=== PATIENT | female | born 1960 | race Caucasian/White ===

== ENCOUNTER 2016-04-14 08:55 | Day surgery (SDC) | payer OTHER ==
[~2016-04-14 08:55] MED LIST: ALBUTEROL2.5 MG/3 M IN; ALDACTONE25 MG PO; DUONEB IN; FUROSEMIDE20 MG PO; JARDIANCE10 MG PO; KRISTALOSE10 GM PO; LEVEMIR FL100 UNIT/M SC; LEVOTHYROXINE112 MCG PO; LISINOPRIL10 MG PO; LOVASTATIN40 MG PO; NEBULIZER; NOVOLOG PE100 UNITS/ SC; O2; OXYCODONE HCL5 MG PO; PREDNISONE20 MG PO; REBETOL200 MG PO; ROXICODONE5 MG PO; SEROQUEL100 MG PO; SOVALDI PO; TANZEUM SC; XIFAXAN550 MG PO
--- NOTE | 2016-04-14 11:12 | Provider's Discharge Care Plan ---
Problem, Goal, Plan Problem List 1. Chest pain 2. Bipolar 1 disorder 3. Hypertension 4. Diabetes mellitus 5. Cirrhosis 6. Obesity 7. Hypothyroidism 8. Hepatitis C 9. Hyperkalemia 10. Hypomagnesemia 11. Anemia 12. Thrombocytopenia 13. Intractable nausea and vomiting 14. Intractable abdominal pain 15. Cholelithiasis 16. Acute abdominal pain 17. Pneumonia 18. Pancytopenia 19. Hypoxia 20. COPD (chronic obstructive pulmonary disease) 21. Diabetes mellitus type 2, uncontrolled, without complications
--- NOTE | 2016-04-14 11:44 | OPERATIVE REPORT ---
DATE OF SURGERY: 04/14/2016 SURGEON: Casey Jerez MD PREOPERATIVE DIAGNOSES: 1. Epigastric pain 2. Recurrent vomiting POSTOPERATIVE DIAGNOSIS: 1. Prepyloric gastric ulcer PROCEDURE PERFORMED: 1. Esophagogastroduodenoscopy with biopsies ANESTHESIA: Total IV general. INDICATIONS: The patient is a 55-year-old woman with recurrent bouts of nausea, vomiting, and abdominal pain. She is currently on omeprazole 40 mg every day. The patient also had previous esophageal varices, but has now had a TIPS procedure as well as curative treatment of chronic hepatitis C. SURGICAL TECHNIQUE: The patient was taken to the endoscopy suite where total IV general was administered and the patient was placed in the left lateral decubitus position. A well-lubricated endoscope was inserted down the esophagus and stomach under direct vision. There were no mechanical obstructions to passing of the endoscope. There was some bile laking in the stomach. This was suctioned away. As the pylorus was approached, there was a single ulcer in the distal antrum, close to the pyloric channel, about 6 mm in diameter. This did not have any raised edges or suspicion of neoplasm. There were also a few shallow red spots around the lower antrum, suggesting similar lesions. The pylorus was entered, and the duodenum appeared to be normal without, evidence of obstruction or stenosis. On withdrawal, a single biopsy was taken from the antrum for Helicobacter testing. A retroflexed view was unremarkable. There were no varices seen in the stomach or in the esophagus. The gastroesophageal junction was viewed and did not appear to be pathologic. The rest of the esophagus was once again normal. In summary, this patient had an antral ulcer, and we will await helicobacter testing to decide on additional treatment. She will stay on her proton pump inhibitors and avoid barrier breakers if possible. This patient's symptoms may also be secondary to diabetic gastropathy; however, the patient's current BMI has not been impacted by alimentation problems.
== END 2016-04-14 13:05 | disposition home or self-care (01) ==
LOC: OR SRH 08:55 → SCU SRH 09:00
PROVIDERS: Surgery
PROC: 0DB68ZX Excision of Stomach, Via Natural or Artificial Opening Endoscopic, Diagnostic (ICD-10-PCS; principal; 2016-04-14 10:45)
DX: K25.9 Gastric ulcer, unspecified as acute or chronic, without hemorrhage or perforation (principal); I10 Essential (primary) hypertension; E11.9 Type 2 diabetes mellitus without complications; Z79.4 Long term (current) use of insulin; Z86.19 Personal history of other infectious and parasitic diseases; J44.9 Chronic obstructive pulmonary disease, unspecified
CPT/HCPCS: 29229; 29240; 50004; 60001; 82943; 83526; 90047; 90074; 90705; 95059

== ENCOUNTER 2016-04-26 17:15 | Observation (INO) | payer OTHER ==
[~2016-04-26] VITALS: Ht 165.1 cm; Wt 155.8 kg
--- NOTE | 2016-04-26 19:29 | ED CLINICAL REPORT ---
Clinical Report - Physicians/Mid Levels [facility] [address] [place] [address] 04/26/2016 17:15 [id number] Time Seen: 17:47. Arrived- By private vehicle. Historian- patient. HISTORY OF PRESENT ILLNESS Chief Complaint: VOMITING and NAUSEA. At its maximum, severity described as moderate. When seen in the E.D., severity described as moderate. Modifying factors- worsened by movement and food. Relieved by rest. This started today and is still present. It was gradual in onset and has been waxing/waning. Quality not described as "pain". No radiation. The patient has had nausea and vomiting. No diarrhea. Similar symptoms previously: Frequently (patient states has same symptoms "every other month"). Recent medical care: The patient was seen recently by a health care provider. REVIEW OF SYSTEMS No black stools, difficulty with urination, pain with urination, urinary frequency or bloody stools. No fever, headache, sore throat or difficulty breathing. Denies current . The patient has had a cough, joint pain, and back pain. All systems otherwise negative, except as recorded above. PAST HISTORY PCP: Dr Blackwell Problems: Gout. Chest Pain. Hyperglycemia. UTI - Urinary Tract Infection. Renal Insufficiency. Lower Extremity Pain. Arthritis. Back Pain. Chronic Back Pain. Intervertebral Disc Disease. Lumbar Radiculopathy. Degenerative Joint Disease. Pedal Edema. Rt groin pain . Gastritis. Dehydration. Cholelithiasis. Hypomagnesemia. Abdominal Pain. Flank Pain. Cardiovascular Risk Factors. Cirrhosis. Lumbar Strain. Kidney failure. GI Bleeding. Abnormal Test. Rectal Bleed. Hepatitis C. Hypertension. Otitis Media. Obesity. Hepatitis. Bipolar Disorder. Thyroid Disease. Chest Wall Pain. Pharyngitis. Hypothyroidism. Neck Pain. Cervical Strain. Pneumonia. Diabetes Mellitus. Surgeries: Appendectomy. . Endoscopy. Hysterectomy. Liver biopsy. Shoulder Surgery. TIPs in liver. Tonsillectomy. Tympanostomy Tubes. Medications: Jardiance Oral (Tablet 10 mg) 2 tablets, day. Levemir Subcutaneous 150 Units in AM+ 150 units in PM. Levothyroxine Sodium Oral 137 mcg, daily. Lisinopril Oral 5 mg, daily. Lovastatin Oral (Tablet 40 mg) 1 tablet, at bedtime. NovoLOG Subcutaneous per Sliding Scale, before meals. Phenergan (Promethazine) Oral, as needed. Phenergan (Promethazine) Rectal, as needed. QUEtiapine Fumarate Oral 200 mg, daily. Tanzeum Subcutaneous (Pen-injector 30 mg), once a week. Xifaxan Oral (Tablet 550 mg) 1 tablet, 2xdaily. Zofran Oral 4 mg, PRN. Allergies: Adhesive. (blister) Aspirin. (stomach pain and nausea) Latex. (blister) Vicodin.(vomiting). SOCIAL HISTORY Never smoker. No alcohol use or drug use. Residence: [place]. ADDITIONAL NOTES The nursing notes have been reviewed. PHYSICAL EXAM Vital Signs: 04/26/2016 17:29 BP: 151/71. HR: 60. RR: 25. O2 saturation: 94%. Pain level now: 0/10. Appearance: Alert. Oriented X3. Patient in moderate distress. Eyes: Eyes normal inspection. No scleral icterus or pale conjunctivae. ENT: Dry mucous membranes present. Pharynx normal. No pharyngeal erythema or tonsillar exudate. Neck: Normal inspection. Neck supple. CVS: Heart sounds normal. Pulses normal. Respiratory: No respiratory distress. Breath sounds normal. Abdomen: Soft. Severely obese. No rebound tenderness or guarding. (body habitus limits exam). Back: Normal inspection. Skin: Skin warm and dry. Extremities: Extremities exhibit normal ROM. No calf tenderness. Neuro: Oriented X 3. No motor deficit. No sensory deficit. LABS, X-RAYS, AND EKG Laboratory Tests: CBC w Diff: (MANISHA: 04/26/2016 18:05) ( MsgRcvd 04/26/2016 18:21) Final results Test Result Flag Units (Reference) WHITE BLOOD COUNT 5.9 K/uL (4.5-11.5) RED BLOOD COUNT 4.59 M/uL (4.00-5.20) HEMOGLOBIN 13.0 gm/dL (12.0-16.0) HEMATOCRIT 39.7 % (36.0-46.0) MEAN CELL VOLUME 86 fL (80-100) MEAN CORPUSCULAR HGB 28 pg (26-34) MEAN CORPUSCULAR HGB CONC 33 g/dL (31-37) RED CELL DISTRIBUTION WIDTH 15.2 H % (11.6-14.8) PLATELET COUNT 85 L K/uL (150-400) NEUTROPHIL % 82.1 H % (50-75) LYMPH % 13.5 L % (25-40) MONO % 3.6 % (3-14) EOSINOPHIL % 0.6 % (0-4) BASOPHIL % 0.2 % (0-2) PT with INR: (MANISHA: 04/26/2016 18:05) ( [facility] 04/26/2016 18:27) Final results Test Result Flag Units (Reference) INR 1.1 (0.8-1.2) Low Intensity Therapy: INR 1.5-2.0 PT range 18.5-23.1Mod.Intensity Therapy: INR 2.0-3.0 PT range 23.1-31.5High Intensity Therapy: INR 2.5-3.5 PT range 27.4-35.5High Intensity Therapy 2: INR 3.0-4.0 PT range 31.5-39.3 Ammonia Level: (MANISHA: 04/26/2016 18:05) ( [facility] 04/26/2016 18:32) Final results Test Result Flag Units (Reference) AMMONIA 15 umol/L (11-32) Lactate, Serum: (MANISHA: 04/26/2016 18:05) ( [facility] 04/26/2016 18:42) Final results Test Result Flag Units (Reference) LACTIC ACID 2.4 H mmol/L (0.4-2.0) CMP: (MANISHA: 04/26/2016 18:05) ( [facility] 04/26/2016 18:34) Final results Test Result Flag Units (Reference) GLUCOSE 271 H mg/dL (70-110) BUN 17 mg/dL (7-18) CREATININE 1.2 mg/dL (0.6-1.3) Estimated GFR 49.57 mL/min Estimated GFR- >60 mL/min Note: Persistent reduction over 3 months in eGFR<60 mL/min/1.73 m2 defines CKD. Patients with eGFR values>=60 mL/min/1.73 m2 may also have CKD if evidence ofpersistent proteinuria. Additional information may be foundat www.kidney.org. SODIUM 141 mmol/L (136-145) POTASSIUM 4.6 mmol/L (3.5-5.1) CHLORIDE 103 mmol/L (98-107) CARBON DIOXIDE 23 mmol/L (21-32) CALCIUM 10.0 mg/dL (8.5-10.1) TOTAL PROTEIN 7.2 g/dL (6.4-8.2) ALBUMIN 3.9 g/dL (3.3-5.0) BILIRUBIN, TOTAL 0.9 mg/dL (0.0-1.0) ALKALINE PHOSPHATASE 140 H U/L (46-116) AST (SGOT) 31 U/L (15-37) ALT (SGPT) 28 U/L (12-78) LIPASE 85 U/L (73-393) AMYLASE 27 U/L (25-115) ETHYL ALCOHOL <3 L mg/dL (3-10) . Pulse Oximetry: 04/26/2016 17:29 O2 saturation: 94%. (FIO2 - room air). Interpretation: hypoxemia. PROGRESS AND PROCEDURES Course of Care: Normal Saline 1 liter IVPB given. Zofran 4 mg IVP given. Reglan 10 mg IVP given. Pt with intractable nausea and vomiting - suspect diabetic gastroparesis. She requires obs for IV fluids and antiemetics 04/26/2016 19:23 BP: 153/58. HR: 70. RR: 100. O2 saturation: 100%. Temp: 98.5 F. Patient/family counseled. Old ED records reviewed. Patient has had multiple ED visits (12 visits to [facility] ED in past 12 months). Transition orders written. Disposition: Observation in Acute Care. CLINICAL IMPRESSION Intractable vomiting with nausea. Chronic, moderately well controlled type 2 diabetes with hyperglycemia. No coma. Abnormal liver function test: alkaline phosphatase (with history of liver cirrhosis). 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 INSTRUCTIONS Avoid alcohol and NSAIDS. Examples of NSAIDS include aspirin, ibuprofen (Advil) and naproxen (Aleve). Avoid fatty, fried/greasy, lactose-containing (such as milk, cheese and ice cream), salty and spicy foods. Your Current Medications: CONTINUE TAKING THE FOLLOWING MEDICATIONS: Jardiance Oral : Tablet 10 mg, 2 tablets day. Levemir Subcutaneous : 150 Units in AM+ 150 units in PM. Levothyroxine Sodium Oral : 137 mcg daily. Lisinopril Oral : 5 mg daily. Lovastatin Oral : Tablet 40 mg, 1 tablet at bedtime. NovoLOG Subcutaneous : per Sliding Scale before meals. Phenergan (Promethazine) Oral : prn. Phenergan (Promethazine) Rectal : prn. QUEtiapine Fumarate Oral : 200 mg daily. Tanzeum Subcutaneous : Pen-injector 30 mg, once a week. Xifaxan Oral : Tablet 550 mg, 1 tablet 2xdaily. Zofran Oral : 4 mg PRN. (Electronically signed by Casey Morrell DO 04/26/2016 21:31)
--- NOTE | 2016-04-26 19:29 | ED NURSING NOTES ---
Clinical Report - Nurses [facility] [address] [place] [address] 04/26/2016 17:15 Patient: VANIA AGUILA TRIAGE Triage time 1728 PM. Acuity: LEVEL 4. Chief Complaint: ABDOMINAL PAIN, NAUSEA, VOMITING and DIARRHEA. Alert. No acute distress. RICHI COMA SCORE: [place] Coma Scale: 15- eyes open spontaneously (4); best verbal response- oriented x 4 (5); best motor response- obeys commands (6). --17:41 Cristal Coley R.N. 17:28 04/26/16. BP: 155/75 (regular adult cuff) taken on the left arm, via an automated monitor, while sitting. HR: 61 (regular). RR: 15. O2 saturation: 89% on room air. Temp: 97.4 F (oral). Pain level now: 0/10. --17:41 Cristal Coley R.N. Weight: 149.6 kg stated. Height/Length: 63 inches Per Patient. BMI: 58.4. --17:30 Cristal Coley R.N. Medications Jardiance Oral (Tablet 10 mg) 2 tablets, day. Levemir Subcutaneous 150 Units in AM+ 150 units in PM. Levothyroxine Sodium Oral 137 mcg, daily. Lisinopril Oral 5 mg, daily. Lovastatin Oral (Tablet 40 mg) 1 tablet, at bedtime. NovoLOG Subcutaneous per Sliding Scale, before meals. Phenergan (Promethazine) Oral, as needed. Phenergan (Promethazine) Rectal, as needed. QUEtiapine Fumarate Oral 200 mg, daily. Tanzeum Subcutaneous (Pen-injector 30 mg), once a week. Xifaxan Oral (Tablet 550 mg) 1 tablet, 2xdaily. Zofran Oral 4 mg, PRN. --17:31 Cristal Coley R.N. Allergies Adhesive. (blister) Aspirin. (stomach pain and nausea) Latex. (blister) Vicodin.(vomiting) --17:31 Cristal Coley R.N. Medication/allergy information source: the patient. --17:41 Cristal Coley R.N. History Arrived by private vehicle. Historian: patient. ( Pt states since this morning has been vomiting, chills, feels very weak and exhausted. Has taken zofran as prescribed with no relief. Pt does admit to having cough, productive green. Here for further evaluation.). This started last night. She has had nausea, vomiting, diarrhea and abdominal pain. She has had fever (1 weeks). Last oral intake by patient was liquid this morning (20 minutes). Treatment [employer]PER[employer]: (zofran). PAST MEDICAL HX: Immunizations: up-to-date. SOCIAL HX: Never smoker. No alcohol use or drug use. No recent travel. No infectious disease exposure. No known contact with a sick individual. SELF HARM ASSESSMENT: A self harm assessment was performed. The patient answered "no" to the question "Do you have thoughts of harming or killing yourself?" and "Have you recently had thoughts about harming or killing others?". FALL RISK ASSESSMENT: Fall risk assessment completed. No fall risk identified. NUTRITIONAL RISK ASSESSMENT: The nutritional risk assessment revealed no deficiencies. --17:41 Cristal Coley R.N. PROBLEMS: Lifestyle / Substance Problems. Gout. Chest Pain. Hyperglycemia. UTI - Urinary Tract Infection. Renal Insufficiency. Lower Extremity Pain. Arthritis. Back Pain. Chronic Back Pain. Intervertebral Disc Disease. Lumbar Radiculopathy. Degenerative Joint Disease. Pedal Edema. Rt groin pain . COPD - Chronic Obstructive Pulmonary Disease. Gastritis. Dehydration. Contusion. Fall. Sprain. Biliary Colic. Cholelithiasis. Vomiting. Hypomagnesemia. Abdominal Pain. Flank Pain. Cardiovascular Risk Factors. Cirrhosis. Lumbar Strain. Kidney failure. GI Bleeding. Abnormal Test. Rectal Bleed. LNMP - Last Normal Menstrual Period. Hepatitis C. Hypertension. Otitis Media. Obesity. Hepatitis. Bipolar Disorder. Thyroid Disease. Chest Wall Pain. Pharyngitis. Hypothyroidism. Neck Pain. Cervical Strain. Immunizations. Pneumonia. Diabetes Mellitus. --17:32 Cristal Coley R.N. ADDITIONAL SURGERIES: Appendectomy. . Endoscopy. Hysterectomy. Liver biopsy. Shoulder Surgery. TIPs in liver. Tonsillectomy. Tympanostomy Tubes. --17:32 Cristal Coley R.N. Interventions ID band on patient. --17:41 Cristal Coley R.N. PHYSICAL ASSESSMENT To room via wheelchair. GENERAL / NEURO / PSYCH: Alert. Appears in no acute distress. RESPIRATORY: Decreased breath sounds in the bases bilaterally. Breath sounds within normal limits. CVS: Capillary refill less than 2 seconds. GI / : Abdomen soft. SKIN: Skin is pale. Skin is warm and dry. --17:41 Cristal Coley R.N. NURSING PROGRESS NOTES The initial plan of care for this patient has been created This plan of care was discussed with the patient. Oxygen administered by nasal cannula at 2 liters. Pulse oximeter and NIBP monitor placed on patient. Patient gowned. Reassurance given. Call light placed in reach. Side rails up. Bed placed in lowest position. Brakes of bed on. --17:43 Cristal Coley R.N. 17:29 04/26/16. BP: 151/71 (regular adult cuff) taken on the left arm, via an automated monitor, while sitting. HR: 60. RR: 25. O2 saturation: 94% on nasal cannula at 2 liters/minute. Pain level now: 0/10. --17:43 Cristal Coley R.N. 18:10 04/26/2016 Started bag #1 1000 mL IV Fluids IV NS (Saline); at 1000 mL/hr over 1 hour(s) via site #1 --18:15 Cristal Coley R.N. 18:11 04/26/2016 Reglan (Metoclopramide HCl) IVP 10 mg given over 1 minute(s) via site #1. Allergies verified and confirmed 5 rights. IV patency established. IV site checked: no pain, redness, or swelling. IV flushed thoroughly pre- and post-medication administration. IVP given by RN. --18:16 Cristla Coley R.N. 18:15 04/26/2016 Site #1 started via IV in the left antecubital space with an 20g angiocath; one attempt. Blood drawn: rainbow set. Labeled in the presence of the patient and sent to the lab. --18:15 Cristal Coley R.N. 18:16 04/26/2016 Zofran (Ondansetron HCl) IVP 4 mg given over 2 minute(s) via site #1. Allergies verified and confirmed 5 rights. IV patency established. IV site checked: no pain, redness, or swelling. IV flushed thoroughly pre- and post-medication administration. --18:16 Cristal Coley R.N. Pulse oximeter and NIBP monitor placed on patient. Reassurance given. ( Pt vomited approximately 400cc of green like fluid, IV infusing). GI / : The patient reports nausea. The patient reports vomiting. Call light placed in reach. Side rails up x 1. Bed placed in lowest position. Brakes of bed on. --18:52 Cristal Coley R.N. 18:45 04/26/16. BP: 151/51. HR: 68. RR: 15. O2 saturation: 94% on room air. Pain level now: 0/10. --18:52 Cristal Coley R.N. 18:57 04/26/2016 Zofran IVP Response: symptoms are the same. The patient feels the same. --19:07 Cristal Coley R.N. 19:07 04/26/2016 Reglan IVP Response: no adverse reaction symptoms are the same. The patient feels the same. --19:07 Cristal Coley R.N. 19:22 04/26/2016 Zofran (Ondansetron HCl) IVP 4 mg given over 2 minute(s) via site #1. Allergies verified and confirmed 5 rights. IV patency established. IV site checked: no pain, redness, or swelling. IV flushed thoroughly pre- and post-medication administration. IVP given by RN. --19:22 Gaetano Zavala R.N. 19:23 04/26/2016 PHENERGAN (Promethazine HCl) IVP 12.5 mg given over 5 minute(s) via site #1. Allergies verified and confirmed 5 rights. IV patency established. IV site checked: no pain, redness, or swelling. IV flushed thoroughly pre- and post-medication administration. IVP given by RN. --19:23 Gaetano Zavala R.N. Reassurance given. The patient is calm and resting quietly. Overall patient status is improved- she states feels better. --19:24 Gaetano Zavala R.N. 19:23 04/26/16. BP: 153/58 taken on the right arm, via an automated monitor, while lying. HR: 70 (regular and normal rate). RR: 100. O2 saturation: 100%. Temp: 98.5 F (oral). --19:24 Gaetano Zavala R.N. ( Patient vomited again. States that she feels like she vomits every time she gets the Zofran. Patient states that she feels better after she vomits.). --19:32 Gaetano Zavala R.N. Inpatient H&P given to patient for completion. --19:45 Anel Mas ER Tech1 19:55 04/26/2016 Zofran IVP Response: no adverse reaction symptoms are the same. The patient feels worse. --20:10 Cristal Coley R.N. 20:00 04/26/2016 PHENERGAN IVP Response: symptoms are the same. The patient feels the same. --20:10 Cristal Coley R.N. 20:10 04/26/2016 PHENERGAN (Promethazine HCl) IVP 12.5 mg given over 1 minute(s) via site #1. Allergies verified and confirmed 5 rights. IV patency established. IV site checked: no pain, redness, or swelling. IV flushed thoroughly pre- and post-medication administration. IVP given by RN. --20:10 Cristal Coley R.N. 20:11 04/26/2016 IV Fluids IV NS Bag Change: bag #1 completed. Total amount infused: 1000. STARTED bag #2 (500 mL) at 500 mL/hr via IV pump. Confirmed 5 rights. IV patency established. IV site checked: no pain, redness, or swelling. IV flushed thoroughly. --20:11 Cristal Coley R.N. 20:12 04/26/16. BP: 158/72. HR: 65. RR: 18. O2 saturation: 94% on room air. Pain level now: 0/10. --20:18 Cristal Coley R.N. Pulse oximeter and NIBP monitor placed on patient. Reassurance given. The patient has had no adverse reaction. Overall patient status is improved- she states feels the same. ( Pt vomited x2 approximately 150cc clear. More medicine given as ordered, pt states with no relief "zofran is making me vomit" phenergan given as ordered. Emotional support provided. Pt offered cold compress and O2 to help with n/v, refused.). GI / : The patient reports nausea. The patient reports vomiting. Denies abdominal pain or diarrhea. SKIN: Skin is pale. Two patient identifiers checked. Call light placed in reach. Bed placed in lowest position. Brakes of bed on. --20:18 Cristal Coley R.N. 20:57 04/26/2016 PHENERGAN IVP Response: no adverse reaction symptoms are the same. The patient feels the same. --21:12 Cristal Coley R.N. 20:58 04/26/2016 IV Fluids IV NS Continued: at the rate of 500 mL/hr. 600 mL remaining bag #2. IV patency established. IV site checked: no pain, redness, or swelling. IV flushed thoroughly. --21:13 Cristal Coley R.N. DISPOSITION / DISCHARGE 21:00 04/26/2016 Site #1 reassessed; patent and infusing well. Good blood return present. --21:00 Cristal Coley R.N. Departure time: 2105 PM. Condition at departure: unchanged and stable. Transported via stretcher by transport team. Report was given to a nurse via a phone call. Report included patient's care, treatment, medications, reviewed medication reconcilliation, and condition (including any recent changes or anticipated changes). All questions were answered. Report was acknowledged and care was transferred. Bed obtained and ready. ( Pt transfered via stretcher safely to room 210B. VSS, left IV site intact and infusing NS as ordered. Pt believes no relief, volume of vomit has decreased.). FALL RISK ASSESSMENT: Fall risk assessment completed. No fall risk identified. --21:12 Cristal Coley R.N. 21:00 04/26/16. BP: 142/65 (regular adult cuff) taken on the right arm, via an automated monitor, while lying. HR: 78. RR: 16. O2 saturation: 93% on room air. Temp: 98.2 F (oral). Pain level now: 0/10. --21:12 Cristal Coley R.N. Locked/Released at 04/27/2016 1:10 by Cristal Coley R.N.
--- NOTE | 2016-04-26 19:29 | ED ORDER SUMMARY ---
..... Patient: VANIA AGUILA OrderSheet [facility] VisitID: [id number] [place] [address] 55y, F Registration Date/Time: 04/26/2016 ORDER SHEET Weight: 149.6 kg (stated) Allergies: Adhesive, Aspirin, Latex, Vicodin GENERAL ORDERS: CBC w Diff Urgent (17:49 04/26/2016 PHutchinson DO) (Ack 17:58 LTapper) (18:03 EHassan R.N.) CMP Urgent (17:49 04/26/2016 PHutchinson DO) (Ack 17:58 LTapper) (18:03 EHassan R.N.) UA-Culture if indicated Urgent (17:49 04/26/2016 PHutchinson DO) (Ack 17:58 LTapper) (18:03 EHassan R.N.) Amylase Urgent (17:49 04/26/2016 PHutchinson DO) (Ack 17:58 LTapper) (18:03 EHassan R.N.) Lipase Urgent (17:49 04/26/2016 PHutchinson DO) (Ack 17:58 LTapper) (18:03 EHassan R.N.) PT with INR Urgent (17:49 04/26/2016 PHson ) (Ack 17:58 LTapper) (18:03 EHassan R.N.) Ammonia Level Urgent (17:49 04/26/2016 PHutchinson DO) (Ack 17:58 LTapper) (18:15 EHassan R.N.) Urine Drug Screen Urgent (17:49 04/26/2016 PHutchinson DO) (Ack 17:58 LTapper) (18:15 EHassan R.N.) Ethyl Alcohol Urgent (17:49 04/26/2016 PHutchinson DO) (Ack 17:58 LTapper) (18:15 EHassan R.N.) Lactate, Serum Urgent (17:49 04/26/2016 PHutchinson DO) (Ack 17:58 LTapper) (18:15 EHassan R.N.) NPO (17:49 04/26/2016 [facility]) (18:03 EHassan R.N.) Call (Place call to): (Dr Parish) (19:29 04/26/2016 [facility]) (19:41 AMcQuoid ER Tech1) MEDICATION ORDERS: Phenergan IV 12.5 mg (HIGH ALERT MEDICATION, NOW) (19:09 04/26/2016 [facility]) (19:23 Nelda R.N.) Phenergan IV 12.5 mg (HIGH ALERT MEDICATION, NOW) (20:03 04/26/2016 [facility]) (20:10 ESTHELAassan R.N.) IV FLUIDS: IV NS : initial bolus 1000 mL (1000 mL/hr), then 500 mL/hr for X2 (NOW) (17:48 04/26/2016 [facility]) (18:15 EHassan R.N.) Reglan IV 10 mg (NOW) (17:48 04/26/2016 [facility]) (18:16 EHassan R.N.) Zofran IV 4 mg (NOW) (17:49 04/26/2016 [facility]) (18:16 EHassan R.N.) Zofran IV 4 mg (NOW) (19:09 04/26/2016 [facility]) (19:22 Nelda R.N.) ORDER SHEET NOTES: [Electronically signed by Casey Morrell DO (21:31 04/26/2016)] [Electronically signed by Cristal Coley R.N. (01:10 04/27/2016)] [Electronically locked/signed by Cristal Coley R.N. (01:10 04/27/2016)]
--- NOTE | 2016-04-26 19:29 | ED ORDER SUMMARY ---
..... Patient: VANIA AGUILA OrderSheet [facility] VisitID: [id number] [place] [address] 55y, F Registration Date/Time: 04/26/2016 ORDER SHEET Weight: 149.6 kg (stated) Allergies: Adhesive, Aspirin, Latex, Vicodin GENERAL ORDERS: CBC w Diff Urgent (17:49 04/26/2016 PHutchinson DO) (Ack 17:58 LTapper) (18:03 EHassan R.N.) CMP Urgent (17:49 04/26/2016 PHutchinson DO) (Ack 17:58 LTapper) (18:03 EHassan R.N.) UA-Culture if indicated Urgent (17:49 04/26/2016 PHutchinson DO) (Ack 17:58 LTapper) (18:03 EHassan R.N.) Amylase Urgent (17:49 04/26/2016 PHutchinson DO) (Ack 17:58 LTapper) (18:03 EHassan R.N.) Lipase Urgent (17:49 04/26/2016 PHutchinson DO) (Ack 17:58 LTapper) (18:03 EHassan R.N.) PT with INR Urgent (17:49 04/26/2016 PHson ) (Ack 17:58 LTapper) (18:03 EHassan R.N.) Ammonia Level Urgent (17:49 04/26/2016 PHutchinson DO) (Ack 17:58 LTapper) (18:15 EHassan R.N.) Urine Drug Screen Urgent (17:49 04/26/2016 PHutchinson DO) (Ack 17:58 LTapper) (18:15 EHassan R.N.) Ethyl Alcohol Urgent (17:49 04/26/2016 PHutchinson DO) (Ack 17:58 LTapper) (18:15 EHassan R.N.) Lactate, Serum Urgent (17:49 04/26/2016 PHutchinson DO) (Ack 17:58 LTapper) (18:15 EHassan R.N.) NPO (17:49 04/26/2016 [facility]) (18:03 EHassan R.N.) Call (Place call to): (Dr Parish) (19:29 04/26/2016 [facility]) (19:41 AMcQuoid ER Tech1) MEDICATION ORDERS: Phenergan IV 12.5 mg (HIGH ALERT MEDICATION, NOW) (19:09 04/26/2016 [facility]) (19:23 Nelda R.N.) Phenergan IV 12.5 mg (HIGH ALERT MEDICATION, NOW) (20:03 04/26/2016 [facility]) (20:10 ESTHELAassan R.N.) IV FLUIDS: IV NS : initial bolus 1000 mL (1000 mL/hr), then 500 mL/hr for X2 (NOW) (17:48 04/26/2016 [facility]) (18:15 EHassan R.N.) Reglan IV 10 mg (NOW) (17:48 04/26/2016 [facility]) (18:16 EHassan R.N.) Zofran IV 4 mg (NOW) (17:49 04/26/2016 [facility]) (18:16 EHassan R.N.) Zofran IV 4 mg (NOW) (19:09 04/26/2016 [facility]) (19:22 Nelda R.N.) ORDER SHEET NOTES: [Electronically signed by Casey Morrell DO (21:31 04/26/2016)] [Electronically signed by Cristal Coley R.N. (01:10 04/27/2016)] [Electronically locked/signed by Cristal Coley R.N. (01:10 04/27/2016)]
[2016-04-26 21:42] VITALS: BP 155/74
[2016-04-26 21:43] VITALS: BP 164/83
[2016-04-26 22:58] VITALS: BP 178/68
--- NOTE | 2016-04-27 01:10 | ED DISCHARGE INSTRUCTIONS ---
Patient: VANIA AGUILA General Instructions [facility] VisitID: [id number] [place] [address] 55y, F Registration Date/Time: 04/26/2016 Intractable vomiting with nausea. Chronic, moderately well controlled type 2 diabetes with hyperglycemia. No coma. Abnormal liver function test: alkaline phosphatase (with history of liver cirrhosis). 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 INSTRUCTIONS Avoid alcohol and NSAIDS. Examples of NSAIDS include aspirin, ibuprofen (Advil) and naproxen (Aleve). Avoid fatty, fried/greasy, lactose-containing (such as milk, cheese and ice cream), salty and spicy foods. Your Current Medications: CONTINUE TAKING THE FOLLOWING MEDICATIONS: Jardiance Oral : Tablet 10 mg, 2 tablets day. Levemir Subcutaneous : 150 Units in AM+ 150 units in PM. Levothyroxine Sodium Oral : 137 mcg daily. Lisinopril Oral : 5 mg daily. Lovastatin Oral : Tablet 40 mg, 1 tablet at bedtime. NovoLOG Subcutaneous : per Sliding Scale before meals. Phenergan (Promethazine) Oral : prn. Phenergan (Promethazine) Rectal : prn. QUEtiapine Fumarate Oral : 200 mg daily. Tanzeum Subcutaneous : Pen-injector 30 mg, once a week. Xifaxan Oral : Tablet 550 mg, 1 tablet 2xdaily. Zofran Oral : 4 mg PRN. ADDITIONAL INFORMATION Vomiting [6Yr-Adult] Vomiting is a common symptom that may be due to different causes. These include gastroenteritis ("stomach flu"), food poisoning and gastritis. There are other more serious causes of vomiting which may be hard to diagnose early in the illness. Therefore, it is important to watch for the warning signs listed below. The main danger from repeated vomiting is dehydration. This is due to excess loss of water and minerals from the body. When this occurs, body fluids must be replaced. Home Care: If symptoms are severe, rest at home for the next 24 hours. You may use acetaminophen (Tylenol) or ibuprofen (Motrin, Advil) to control fever, unless another medicine was prescribed. [NOTE : If you have chronic liver or kidney disease or ever had a stomach ulcer or GI bleeding, talk with your doctor before using these medicines.] (Aspirin should never be used in anyone under 18 years of age who is ill with a fever. It may cause severe liver damage.) Avoid tobacco and alcohol use, which may worsen your symptoms. If medicines for vomiting were prescribed, take as directed. Once vomiting stops, then follow these guidelines: During The First 12-24 Hours follow the diet below: FRUIT JUICES: Apple, grape juice, clear fruit drinks, and electrolyte replacement drinks. BEVERAGES: Soft drinks without caffeine; mineral water (plain or flavored), decaffeinated tea and coffee. SOUPS: Clear broth, consomm and bouillon DESSERTS: Plain gelatin, popsicles and fruit juice bars. As you feel better, you may add 6-8 ounces of yogurt per day. During The Next 24 Hours you may add the following to the above: Hot cereal, plain toast, bread, rolls, crackers Plain noodles, rice, mashed potatoes, chicken noodle or rice soup Unsweetened canned fruit (avoid pineapple), bananas Limit caffeine and chocolate. No spices or seasonings except salt. During The Next 24 Hours Gradually resume a normal diet, as you feel better and your symptoms lessen. Follow Up with your doctor as advised if you are not improving over the next 2-3 days. Get Prompt Medical Attention if any of the following occur: Constant right-sided lower abdominal pain or increasing general abdominal pain Continued vomiting (unable to keep liquids down) for 24 hours Frequent diarrhea (more than 5 times a day); blood (red or black color) or mucus in diarrhea Reduced urine output or extreme thirst Weakness, dizziness or fainting Unusually drowsy or confused Fever of 100.4F (38C) oral or higher, not better with fever medication Yellow color of the eyes or skin You have been given the following additional information: Vomiting (6Y-Adult) (Electronically signed by Casey Morrell DO 04/26/2016 21:31)
--- NOTE | 2016-04-27 01:11 | ED MAR SUMMARY ---
..... Medication Administration Record [facility] [address] [place] [address] Patient: VANIA AGUILA Visit ID: [id number] 55y, F Weight: 149.6 kg Height/Length: 63 in BMI: 58.4 ALLERGIES: Adhesive, Aspirin, Latex, Vicodin Start 18:10 04/26/2016 Cristal Coley R.N., Continued Upon Disposition 20:58 04/26/2016 Cristal Coley R.N. Medication Administered: IV NS (SALINE), Dose: IV Fluids over 1 hour(s), Rate: 1000 mL/hr, Dispensed: 1000 mL bag, Site: #1. Medication Ordered: IV NS : initial bolus 1000 mL (1000 mL/hr), then 500 mL/hr for X2 (NOW). Given 18:11 04/26/2016 Cristal Coley R.N. Medication Administered: REGLAN [IVP] (METOCLOPRAMIDE HCL), Dose: 10 mg IVP over 1 minute(s), Site: #1. Medication Ordered: Reglan IV 10 mg (NOW). Given 18:16 04/26/2016 Cristal Coley R.N. Medication Administered: ZOFRAN [IVP] (ONDANSETRON HCL), Dose: 4 mg IVP over 2 minute(s), Site: #1 left AC. Medication Ordered: Zofran IV 4 mg (NOW). Given 19:22 04/26/2016 Gaetano Zavala R.N. Medication Administered: ZOFRAN [IVP] (ONDANSETRON HCL), Dose: 4 mg IVP over 2 minute(s), Site: #1 left AC. Medication Ordered: Zofran IV 4 mg (NOW). Given 19:23 04/26/2016 Gaetano Zavala R.N. Medication Administered: PHENERGAN [IVP] (PROMETHAZINE HCL), Dose: 12.5 mg IVP over 5 minute(s), Site: #1 left AC. Medication Ordered: Phenergan IV 12.5 mg (HIGH ALERT MEDICATION, NOW). Given 20:10 04/26/2016 Coley, Cristal, R.N. Medication Administered: PHENERGAN [IVP] (PROMETHAZINE HCL), Dose: 12.5 mg IVP over 1 minute(s), Site: #1 left AC. Medication Ordered: Phenergan IV 12.5 mg (HIGH ALERT MEDICATION, NOW).
--- NOTE | 2016-04-27 01:11 | ED MED RECONCILIATION SUMMARY ---
Patient: VANIA AGUILA Medication Reconciliation Report [facility] VisitID: [id number] [address] [place] [address] 55y, F Registration Date/Time: 04/26/2016 Weight: 149.6 kg Height/Length: 63 in. BMI: 58.4 ALLERGIES: Adhesive, Aspirin, Latex, Vicodin The patient's Home Medications are listed below: CONTINUE TAKING THE FOLLOWING MEDICATIONS: Jardiance Oral (10 mg) 2 tablets, day Levemir Subcutaneous 150 Units in AM+ 150 units in PM Levothyroxine Sodium Oral 137 mcg, daily Lisinopril Oral 5 mg, daily Lovastatin Oral (40 mg) 1 tablet, at bedtime NovoLOG Subcutaneous per Sliding Scale, before meals Phenergan (Promethazine) Oral Phenergan (Promethazine) Rectal QUEtiapine Fumarate Oral 200 mg, daily Tanzeum Subcutaneous (30 mg), once a week Xifaxan Oral (550 mg) 1 tablet, 2xdaily Zofran Oral 4 mg, PRN The source(s) of the original Home Medication information: patient The following Medications were given to the patient in the Emergency Department: IV NS IV Fluids bolus 0, then 1000 mL/hr, administered: 04/26/2016 6:10:00 PM Reglan [IVP] IVP 10 mg, administered: 04/26/2016 6:11:00 PM Zofran [IVP] IVP 4 mg, administered: 04/26/2016 6:16:00 PM Zofran [IVP] IVP 4 mg, administered: 04/26/2016 7:22:00 PM PHENERGAN [IVP] IVP 12.5 mg, administered: 04/26/2016 7:23:00 PM PHENERGAN [IVP] IVP 12.5 mg, administered: 04/26/2016 8:10:00 PM The following Medications were prescribed to the patient: None.
--- NOTE | 2016-04-27 01:11 | ED MAR SUMMARY ---
..... Medication Administration Record [facility] [address] [place] [address] Patient: VANIA AGUILA Visit ID: [id number] 55y, F Weight: 149.6 kg Height/Length: 63 in BMI: 58.4 ALLERGIES: Adhesive, Aspirin, Latex, Vicodin Start 18:10 04/26/2016 Cristal Coley R.N., Continued Upon Disposition 20:58 04/26/2016 Cristal Coley R.N. Medication Administered: IV NS (SALINE), Dose: IV Fluids over 1 hour(s), Rate: 1000 mL/hr, Dispensed: 1000 mL bag, Site: #1. Medication Ordered: IV NS : initial bolus 1000 mL (1000 mL/hr), then 500 mL/hr for X2 (NOW). Given 18:11 04/26/2016 Cristal Coley R.N. Medication Administered: REGLAN [IVP] (METOCLOPRAMIDE HCL), Dose: 10 mg IVP over 1 minute(s), Site: #1. Medication Ordered: Reglan IV 10 mg (NOW). Given 18:16 04/26/2016 Cristal Coley R.N. Medication Administered: ZOFRAN [IVP] (ONDANSETRON HCL), Dose: 4 mg IVP over 2 minute(s), Site: #1 left AC. Medication Ordered: Zofran IV 4 mg (NOW). Given 19:22 04/26/2016 Gaetano Zavala R.N. Medication Administered: ZOFRAN [IVP] (ONDANSETRON HCL), Dose: 4 mg IVP over 2 minute(s), Site: #1 left AC. Medication Ordered: Zofran IV 4 mg (NOW). Given 19:23 04/26/2016 Gaetano Zavala R.N. Medication Administered: PHENERGAN [IVP] (PROMETHAZINE HCL), Dose: 12.5 mg IVP over 5 minute(s), Site: #1 left AC. Medication Ordered: Phenergan IV 12.5 mg (HIGH ALERT MEDICATION, NOW). Given 20:10 04/26/2016 Coley, Cristal, R.N. Medication Administered: PHENERGAN [IVP] (PROMETHAZINE HCL), Dose: 12.5 mg IVP over 1 minute(s), Site: #1 left AC. Medication Ordered: Phenergan IV 12.5 mg (HIGH ALERT MEDICATION, NOW).
--- NOTE | 2016-04-27 01:11 | ED MED RECONCILIATION SUMMARY ---
Patient: VANIA AGUILA Medication Reconciliation Report [facility] VisitID: [id number] [address] [place] [address] 55y, F Registration Date/Time: 04/26/2016 Weight: 149.6 kg Height/Length: 63 in. BMI: 58.4 ALLERGIES: Adhesive, Aspirin, Latex, Vicodin The patient's Home Medications are listed below: CONTINUE TAKING THE FOLLOWING MEDICATIONS: Jardiance Oral (10 mg) 2 tablets, day Levemir Subcutaneous 150 Units in AM+ 150 units in PM Levothyroxine Sodium Oral 137 mcg, daily Lisinopril Oral 5 mg, daily Lovastatin Oral (40 mg) 1 tablet, at bedtime NovoLOG Subcutaneous per Sliding Scale, before meals Phenergan (Promethazine) Oral Phenergan (Promethazine) Rectal QUEtiapine Fumarate Oral 200 mg, daily Tanzeum Subcutaneous (30 mg), once a week Xifaxan Oral (550 mg) 1 tablet, 2xdaily Zofran Oral 4 mg, PRN The source(s) of the original Home Medication information: patient The following Medications were given to the patient in the Emergency Department: IV NS IV Fluids bolus 0, then 1000 mL/hr, administered: 04/26/2016 6:10:00 PM Reglan [IVP] IVP 10 mg, administered: 04/26/2016 6:11:00 PM Zofran [IVP] IVP 4 mg, administered: 04/26/2016 6:16:00 PM Zofran [IVP] IVP 4 mg, administered: 04/26/2016 7:22:00 PM PHENERGAN [IVP] IVP 12.5 mg, administered: 04/26/2016 7:23:00 PM PHENERGAN [IVP] IVP 12.5 mg, administered: 04/26/2016 8:10:00 PM The following Medications were prescribed to the patient: None.
--- NOTE | 2016-04-27 03:14 | HISTORY AND PHYSICAL ---
ADMITTED: 04/26/2016 HISTORY OF PRESENT ILLNESS: The patient is a 55-year-old white female who developed some abdominal cramping and loose stools 2 or 3 days ago and then this progressed to onset of nausea and refractory vomiting starting earlier this morning and persisting. She was not able to keep this under control. She finally decided this afternoon that she should come into the emergency room. She has had no hematemesis. She has had no blood in her stool. She has had similar problems in January and eventually this resolved. She has not had any unusual travel history. She has not eaten any unusual foods or had been exposed to any illnesses. Her is not having any problems. They have not eaten anywhere unusual other than at home. MEDICAL/SURGICAL HISTORY: Past medical history is remarkable for having adult- onset diabetes for 15 years. 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 She has had the hepatitis C successfully treated and does not have the virus in her system any longer. She has had a TIPS procedure to help with esophageal varices and gastric varices. This was fairly successful. This was done in 2012. She has had some intermittent problems with hepatic encephalopathy with elevated ammonia. This was mostly after the TIPS procedure and has not had this recently. She is taking lactulose for this. Other medical problems include bipolar disorder and hypothyroidism. She also has significant arthritis in the right hip area. Past surgical history is remarkable for x2. She has also had appendectomy, hysterectomy, upper GI endoscopies, and at least 1 colonoscopy. She has had a tonsillectomy. She has had shoulder surgery. She has also had a TIPS procedure done as noted. She has had ventilation tubes placed in her eardrums. MEDICATIONS: Include: 1. Levemir insulin 170 units morning and evening. 2. NovoLog insulin by sliding scale, usually in the 40-70 unit range. 3. She is also taking Jardiance 25 mg daily. 4. She has listed that she is using Tanzeum injections 30 mg once weekly. 5. Other medications include levothyroxine 137 mcg daily. 6. Lisinopril 5 mg daily. 7. Lovastatin 40 mg every evening. 8. Promethazine 25-50 mg every 6 hours as needed p.o. 9. Promethazine suppositories 25 mg every 6-8 hours as needed. 10. Quetiapine 200 mg in the evening to help with sleeping and bipolar disorder. 11. Xifaxan 550 mg 1 tablet b.i.d. for irritable bowel syndrome. 12. Zofran 4 mg sl q 4h prn nausea. ALLERGIES: INCLUDE: 1. VICODIN. 2. ASPIRIN. 3. LATEX. 4. ADHESIVE TAPE. SOCIAL HISTORY: Indicates the patient is and lives in the [facility]. She is a former smoker, having stopped about 9 years ago. She does not drink alcohol. 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 FAMILY HISTORY: Remarkable for a father who in his mid 80s of heart problems. He also had prostate cancer and diabetes. The patient's mother is living in [place] and is around age 73. She has had diabetes, but seems to be doing relatively well. REVIEW OF SYSTEMS: HEENT: Has been okay with no major visual problems, hearing problems, or headaches. Respiratory: Okay with no major shortness of breath. Cardiovascular is generally okay. The patient is complaining of some retrosternal and epigastric pressure, however, which is new for her. Gastrointestinal: As noted above. Musculoskeletal: Remarkable for shoulder pain and right hip pain. Skin: Okay. Psychiatric: Okay. Genitourinary: Okay with no vaginal discharge or any problems passing urine. PHYSICAL EXAMINATION: GENERAL: Reveals the patient to be an obese lady appearing somewhat older than her stated age. VITAL SIGNS: Temperature is 98. Blood pressure is 178/84. Pulse is 74. Respiratory rate is 18. Oxygen saturation 93% on 2 liters by nasal prongs. HEENT: Head is normal. Ear canals and tympanic membranes are normal. Eyes show clear conjunctivae and sclerae with normal extraocular movements. Fundi are not well seen. Nose and throat are clear. NECK: Supple with normal carotid pulses and no carotid artery bruits. BREASTS: Show no masses. There is no axillary adenopathy. CHEST: Clear. HEART: Reveals normal S1 and S2 with no distinct murmur or gallop. ABDOMEN: Nontender with no organomegaly or mass. Bowel tones are normal. EXTREMITIES: Show trace edema. Dorsalis pedis pulses +2 are present bilaterally. Range of motion of the lower extremities is grossly normal. Sensation in the feet is grossly normal. NEUROLOGIC: Reveals the patient to be alert and oriented x3. Cranial nerves are normal. There is motor or sensory deficit or significant weakness. SKIN: Shows dryness on the lower legs and feet, but is otherwise okay. PSYCHIATRIC: Okay. LAB/IMAGING: Laboratory studies show hemoglobin to be 13, hematocrit is 39.7. PT /INR is 1.1. Ammonia level is 15. White blood cell count is 5900, hemoglobin is 13, hematocrit is 37.9. Lactic acid is 2.4. Alkaline phosphatase is 140, SGOT is 31, SGPT is 28. Lipase is 85, amylase is 27. No imaging studies have been done. EKG is showing normal sinus rhythm with no significant ST-segment changes. IMPRESSION: 1. The patient is presenting with refractory nausea and vomiting. The cause of this is not clear. It is possible she could have early diabetic-related gastroparesis. She does not show any evidence of infectious cause or unsuspected ulcer disease. 2. Other problems include obesity. 3. Poorly controlled diabetes. 4. Hypertension. 5. Cirrhosis secondary to hepatitis C and other factors. 6. Status post transjugular intrahepatic portosystemic shunt procedure. 7. Other problems include hypothyroidism. 8. Bipolar disorder. 9. Degenerative arthritis of the right hip. PLAN: The patient is admitted and will be rehydrated and will have to be treated symptomatically for the nausea and vomiting. She will be started on famotidine for stomach acid control. Blood tests will be repeated in the morning. EKG and cardiac enzymes will be repeated in the morning just to make sure that she is not having an atypical presentation for an inferior myocardial infarction.
[2016-04-27 03:26] VITALS: BP 155/73
[2016-04-27 06:31] VITALS: BP 119/65
[2016-04-27] MEDS ORDERED: ZOFRAN ODT4 MG PO (07:56)
[2016-04-27] MEDS ORDERED: PHENERGAN EQUIV25 M1 PR (07:56)
[2016-04-27] MEDS ORDERED: PHENERGAN EQUIV25 MG PO (07:56)
[2016-04-27 12:10] VITALS: BP 104/59
--- NOTE | 2016-04-27 13:09 | Progress Note ---
Subjective General Patient feels pretty good this morning. Had some vomiting after MN, but feels hungry this morning. Willing to trial some clear liquids. Physical Exam Vital Signs / I&Os Vital Signs Date Time Temp Pulse Resp B/P Pulse O2 O2 Flow FiO2 Ox Delivery Rate 04/27 1210 98.1 79 18 104/59 95 04/27 0631 98.1 80 18 119/65 96 04/27 0434 3.0 04/27 0326 98.0 73 18 155/73 97 Room Air 04/27 0112 Nasal 2.0 Cannula 04/26 2259 98.1 Nasal 2.0 Cannula 04/26 2258 74 18 178/68 93 Room Air 04/26 2155 3.0 04/26 2143 98.1 71 18 164/83 98 Nasal 3.0 Cannula 04/26 2142 98.1 72 18 155/74 95 Room Air I&O 04/27 0000 04/26 1600 04/26 0800 Intake Total Output Total 250 Balance -250 General Appearance Alert, Oriented X3, Cooperative, No acute distress, Morbidly obese HEENT Moist mucous membranes Lungs Clear to auscultation Neck Supple Cardiovascular Regular rate and rhythm, Normal S1 and S2, No murmurs, gallops, rubs Abdomen Normal bowel sounds, Soft, No tenderness Extremities No cyanosis, No clubbing, No edema Skin No Rashes Neurological No lateralizing signs Psych/Mental Status Mental status normal, Mood normal LAB Results Laboratory Tests 04/27 04/27 04/26 04/26 0538 0538 2006 180 Chemistry Plasma Sodium (136 - 145 mmol/L) 143 Plasma Potassium (3.5 - 5.1 mmol/L) 4.2 Plasma Chloride (98 - 107 mmol/L) 108 CO2 (Enzymatic) (21 - 32 mmol/L) 20 BUN (7 - 18 mg/dL) 22 Creatinine (0.6 - 1.3 mg/dL) 1.3 Est GFR ( Amer) (mL/min) 54.78 Est GFR (Non-Af Amer) (mL/min) 45.20 Glucose (70 - 110 mg/dL) 228 Lactic Acid (0.4 - 2.0 mmol/L) 2.4 Plasma Calcium (8.5 - 10.1 mg/dL) 9.1 Plasma Magnesium (1.8 - 2.4 mg/dL) 2.1 Total Bilirubin (0.0 - 1.0 mg/dL) 0.8 Direct Bilirubin (0 - 0.3 mg/dL) 0.3 AST (15 - 37 U/L) 24 ALT (12 - 78 U/L) 24 Alkaline Phosphatase (46 - 116 U/L) 117 Ammonia (11 - 32 umol/L) 31 Creatine Kinase (24 - 260 U/L) 125 Troponin (0.00 - 1.5 ng/mL) <0.05 Total Protein (6.4 - 8.2 g/dL) 6.8 Albumin (3.3 - 5.0 g/dL) 3.3 Amylase (25 - 115 U/L) 24 Lipase (73 - 393 U/L) 89 Hematology WBC (4.5 - 11.5 K/uL) 5.2 RBC (4.00 - 5.20 M/uL) 4.10 Hgb (12.0 - 16.0 gm/dL) 11.7 Hct (36.0 - 46.0 %) 35.4 MCV (80 - 100 fL) 87 MCH (26 - 34 pg) 29 RDW (11.6 - 14.8 %) 15.8 Neut % (Auto) (50 - 75 %) 76.5 Lymph % (Auto) (25 - 40 %) 15.9 [place] % (Auto) (3 - 14 %) 7.3 Eos % (Auto) (0 - 4 %) 0.1 Baso % (Auto) (0 - 2 %) 0.2 Plt Count, EDTA (150 - 400 K/uL) 77 PUBS MCHC (31 - 37 g/dL) 33 Toxicology Urine Opiates Screen (NEGATIVE) NEGATIVE Urine Methadone Screen (NEGATIVE) NEGATIVE Ur Barbiturates Screen (NEGATIVE) NEGATIVE U Amphetamin/Meth Scrn (NEGATIVE) NEGATIVE MDMA (Ecstasy) Screen (NEGATIVE) NEGATIVE U Benzodiazepines Scrn (NEGATIVE) NEGATIVE Urine Cocaine Screen (NEGATIVE) NEGATIVE U Cannabinoids Screen (NEGATIVE) NEGATIVE Urines Urine Color YELLOW Urine Appearance CLEAR Urine pH (5.0 - 8.0) 5.0 Ur Specific [place] (1.010 - 1.030) 1.015 Urine Protein (NEGATIVE) NEGATIVE Urine Ketones (NEGATIVE) 1+ Urine Blood (NEGATIVE) 2+ Urine Nitrite (NEGATIVE) NEGATIVE Urine Bilirubin (NEGATIVE) NEGATIVE Urine Urobilinogen (0.2 - 1.0 EU/dL) 0.2 Ur Leukocyte Esterase (NEGATIVE) NEGATIVE Urine RBC (0 - 1 rbc/hpf) 5-10 Urine WBC (0 - 1 wbc/hpf) 1-3 Ur Epithelial Cells (0 - 5 EPI/hpf) 3-5 Urine Bacteria (NONE SEEN) FEW (1+) Urine Glucose (NEGATIVE) 3+ Urine Comment CULT NOT INDICATED 04/26 04/26 1805 1805 Chemistry Plasma Sodium (136 - 145 mmol/L) 141 Plasma Potassium (3.5 - 5.1 mmol/L) 4.6 Plasma Chloride (98 - 107 mmol/L) 103 CO2 (Enzymatic) (21 - 32 mmol/L) 23 BUN (7 - 18 mg/dL) 17 Creatinine (0.6 - 1.3 mg/dL) 1.2 Est GFR ( Amer) (mL/min) >60 Est GFR (Non-Af Amer) (mL/min) 49.57 Glucose (70 - 110 mg/dL) 271 Plasma Calcium (8.5 - 10.1 mg/dL) 10.0 Total Bilirubin (0.0 - 1.0 mg/dL) 0.9 AST (15 - 37 U/L) 31 ALT (12 - 78 U/L) 28 Alkaline Phosphatase (46 - 116 U/L) 140 Ammonia (11 - 32 umol/L) 15 Total Protein (6.4 - 8.2 g/dL) 7.2 Albumin (3.3 - 5.0 g/dL) 3.9 Amylase (25 - 115 U/L) 27 Lipase (73 - 393 U/L) 85 Coagulation INR (0.8 - 1.2) 1.1 Hematology WBC (4.5 - 11.5 K/uL) 5.9 RBC (4.00 - 5.20 M/uL) 4.59 Hgb (12.0 - 16.0 gm/dL) 13.0 Hct (36.0 - 46.0 %) 39.7 MCV (80 - 100 fL) 86 MCH (26 - 34 pg) 28 RDW (11.6 - 14.8 %) 15.2 Neut % (Auto) (50 - 75 %) 82.1 Lymph % (Auto) (25 - 40 %) 13.5 [place] % (Auto) (3 - 14 %) 3.6 Eos % (Auto) (0 - 4 %) 0.6 Baso % (Auto) (0 - 2 %) 0.2 Plt Count, EDTA (150 - 400 K/uL) 85 PUBS MCHC (31 - 37 g/dL) 33 Toxicology Plasma/Serum Ethyl Alc (3 - 10 mg/dL) <3 Assessment and Plan Problem List 1. Intractable nausea and vomiting Plan Trialing on clears, and will try to advance as tolerated. If she fails, will have her undergo gastric emptying study tomorrow to evaluate for possible gastroparesis. 2. Diabetes mellitus Status Chronic Onset Date Unknown Plan Continuing her insulin regimen. She is quite insulin resistant. 3. Cirrhosis Status Chronic Onset Date Unknown Plan Will restart hre xifaxan 4. Hypothyroidism Status Chronic Onset Date Unknown Plan Continue levothyroxine 5. Hypertension Status Chronic Onset Date Unknown Plan Restart lisinopril FEN: clears, ADAT PPx: SCDs due to thrombocytopenia Code: Pending ability to take PO. If doing well, maybe d/c later today. Otherwise will stay for gastric emptying study tomorrow. E&M Codes Rounding: Obsv-Comp/Moderate/[id number]
[2016-04-27 14:33] VITALS: BP 114/64
[2016-04-27 22:00] VITALS: BP 142/63
[2016-04-28 03:00] VITALS: BP 136/60
[2016-04-28 06:42] VITALS: BP 148/70
--- NOTE | 2016-04-28 10:21 | Progress Note ---
Subjective General Did fine with liquids yesterday, but had significant abdominal pain and nausea with soft food. No emesis in the past 24hrs. Abdominal pain today is gone, no nausea. Awaiting gastric emptying study. Physical Exam Vital Signs / I&Os Vital Signs Date Time Temp Pulse Resp B/P Pulse O2 O2 Flow FiO2 Ox Delivery Rate 04/28 0642 97.9 67 22 148/70 92 Room Air 0.0 04/28 0300 98.1 69 20 136/60 93 Room Air 2.0 04/27 2200 97.7 74 20 142/63 98 Room Air 04/27 1433 97.7 73 20 114/64 92 Room Air 04/27 1210 98.1 79 18 104/59 95 I&O 04/28 0000 04/27 1600 04/27 0800 Intake Total 1665 840 930 Output Total 150 400 750 Balance 1515 440 180 General Appearance Alert, Oriented X3, Cooperative, Morbidly obese HEENT Moist mucous membranes Lungs Clear to auscultation Neck Supple Cardiovascular Regular rate and rhythm, Normal S1 and S2, No murmurs, gallops, rubs Abdomen Normal bowel sounds, Soft, No tenderness Extremities No cyanosis, No clubbing, No edema Skin No Rashes Neurological No lateralizing signs Psych/Mental Status Mental status normal, Mood normal LAB Results Laboratory Tests 04/28 0557 Chemistry Plasma Sodium (136 - 145 mmol/L) 142 Plasma Potassium (3.5 - 5.1 mmol/L) 3.5 Plasma Chloride (98 - 107 mmol/L) 108 CO2 (Enzymatic) (21 - 32 mmol/L) 23 BUN (7 - 18 mg/dL) 23 Creatinine (0.6 - 1.3 mg/dL) 1.0 Est GFR ( Amer) (mL/min) >60 Est GFR (Non-Af Amer) (mL/min) >60 Glucose (70 - 110 mg/dL) 88 Plasma Calcium (8.5 - 10.1 mg/dL) 8.5 Hematology WBC (4.5 - 11.5 K/uL) 5.2 RBC (4.00 - 5.20 M/uL) 3.99 Hgb (12.0 - 16.0 gm/dL) 11.3 Hct (36.0 - 46.0 %) 34.5 MCV (80 - 100 fL) 87 MCH (26 - 34 pg) 28 RDW (11.6 - 14.8 %) 15.6 Neut % (Auto) (50 - 75 %) 57.1 Lymph % (Auto) (25 - 40 %) 30.2 [place] % (Auto) (3 - 14 %) 9.0 Eos % (Auto) (0 - 4 %) 3.4 Baso % (Auto) (0 - 2 %) 0.3 Plt Count, EDTA (150 - 400 K/uL) 79 PUBS MCHC (31 - 37 g/dL) 33 Assessment and Plan Problem List 1. Intractable nausea and vomiting Plan Does ok with liquids, but not solids. NPO for gastric emptying study to evaluate for gastroparesis. May trial reglan afterwards and work to advance diet. 2. Diabetes mellitus Status Chronic Onset Date Unknown Plan Lantus dosing caused hypoglycemia overnight. Will switch to NPH 80 units 2xd, and continue ssi. Monitoring blood sugars carefully. 3. Cirrhosis Status Chronic Onset Date Unknown Plan Continue xifaxan 4. Hypothyroidism Status Chronic Onset Date Unknown Plan Continue levothyroxine. 5. Hypertension Status Chronic Onset Date Unknown Plan Continue lisinopril. FEN: NPO for now, restart clears after test and ADAT PPx: SCDs due to thrombocytopenia from cirrhosis Code: FULL Dispo: Pending gastric emptying study and ability to tolerate PO. E&M Codes Rounding: Obsv-Comp/Moderate/[id number]
--- NOTE | 2016-04-28 13:03 | DIAGNOSTIC IMAGING REPORT ---
PROCEDURE: NM GASTRIC EMPTYING STUDY INDICATION: longstanding issues w/ n/v, IDDM TECHNIQUE: The patient was given a meal of 1 mCi of technetium 99m sulfur colloid mixed with scrambled eggs. Scintigraphic images of the stomach in anterior projection were obtained every 15 minutes for 165 minutes. Data was graphed to determine gastric emptying. COMPARISON: None. Correlation made to CT abdomen pelvis 02/25/2016 FINDINGS: Over 165 minutes, there is essentially no decrease in the gastric volume. There is no detectable passage of radiotracer into the intestines. IMPRESSION: 1. No scintigraphic evidence of gastric emptying. This suggests severe gastroparesis, less likely gastric outlet obstruction. 2. Findings called to Dr. Wilkerson.
[2016-04-28 13:43] VITALS: BP 148/75
[2016-04-28 14:20] VITALS: BP 145/88
--- NOTE | 2016-04-28 17:46 | Provider's Discharge Care Plan ---
Problem, Goal, Plan Problem List 1. Gastroparesis Instructions: Follow up as needed, Please read through the handout I provided you, and work to eat smaller meals and avoid [id number] foods that may worsen your symptoms. Continue to check your blood sugars and take your diabetes medications as prescribed, as good control of your diabetes is important to prevent worsening of your gastroparesis.
--- NOTE | 2016-04-28 17:46 | Provider's Discharge Care Plan ---
Problem, Goal, Plan Problem List 1. Gastroparesis Instructions: Follow up as needed, Please read through the handout I provided you, and work to eat smaller meals and avoid [id number] foods that may worsen your symptoms. Continue to check your blood sugars and take your diabetes medications as prescribed, as good control of your diabetes is important to prevent worsening of your gastroparesis.
--- NOTE | 2016-04-28 17:53 | Discharge Summary ---
Discharge Summary Report Admit Date 04/26/16 Discharge Date 04/28/16 Admission Diagnosis Intractable abdominal pain and vomiting IDDM Cirrhosis s/p TIPS Hypothyroidism Discharge Diagnosis Gastroparesis IDDM Cirrhosis s/p TIPS Hypothyroidism Brief History Per H&P by the admitting physician: 55-year-old white female who developed some abdominal cramping and loose stools 2 or 3 days ago and then this progressed to onset of nausea and refractory vomiting starting earlier this morning and persisting. She was not able to keep this under control. She finally decided this afternoon that she should come into the emergency room. She has had no hematemesis. She has had no blood in her stool. She has had similar problems in January and eventually this resolved. She has not had any unusual travel history. She has not eaten any unusual foods or had been exposed to any illnesses. Her is not having any problems. They have not eaten anywhere unusual other than at home. Hospital Course Patient was admitted for symptom control. After review of her records, she has had an extensive workup of her abdominal symptoms including UGI series, EGD, and HIDA scan. Due to her significant insulin-dependent diabetes, a gastric empyting study was obtained. This revealed severe gastroparesis (there was concern of possible gastric outlet obstruction, but she just had an EGD that did not show this). She was counseled on how to change her diet to avoid pain and vomiting. She will go home with continued PCP follow up. General Appearance Alert, Oriented X3, Cooperative, No acute distress HEENT Mucous membran moist/pink Lungs Clear to auscultation Cardiovascular Regular Rate, Normal S1, Normal S2, No murmurs Abdomen Normal bowel sounds, Soft, No tenderness Skin No Rashes Neurological Nonfocal Psych/Mental Status Mental status NL, Mood NL Lab/Imaging Laboratory Tests 04/28 6797 Chemistry Plasma Sodium (136 - 145 mmol/L) 142 Plasma Potassium (3.5 - 5.1 mmol/L) 3.5 Plasma Chloride (98 - 107 mmol/L) 108 CO2 (Enzymatic) (21 - 32 mmol/L) 23 BUN (7 - 18 mg/dL) 23 Creatinine (0.6 - 1.3 mg/dL) 1.0 Est GFR ( Amer) (mL/min) >60 Est GFR (Non-Af Amer) (mL/min) >60 Glucose (70 - 110 mg/dL) 88 Plasma Calcium (8.5 - 10.1 mg/dL) 8.5 Hematology WBC (4.5 - 11.5 K/uL) 5.2 RBC (4.00 - 5.20 M/uL) 3.99 Hgb (12.0 - 16.0 gm/dL) 11.3 Hct (36.0 - 46.0 %) 34.5 MCV (80 - 100 fL) 87 MCH (26 - 34 pg) 28 RDW (11.6 - 14.8 %) 15.6 Neut % (Auto) (50 - 75 %) 57.1 Lymph % (Auto) (25 - 40 %) 30.2 [place] % (Auto) (3 - 14 %) 9.0 Eos % (Auto) (0 - 4 %) 3.4 Baso % (Auto) (0 - 2 %) 0.3 Plt Count, EDTA (150 - 400 K/uL) 79 PUBS MCHC (31 - 37 g/dL) 33 Discharge Instructions/Meds Patient will follow up with her PCP as needed. She was provided with informational materials explaining what gastroparesis was and how to modify her diet accordingly. She was also instructed to continue monitoring her sugars closely and continue taking her insulin as prescribed. E&M Codes Discharge: Observation - All/[id number]
[2016-04-28 18:15] VITALS: BP 135/54
== END 2016-04-28 18:30 | disposition home or self-care (01) ==
LOC: ED SRH 17:15 → TRANS SRH 19:41 → ACUTE2 SRH 19:41
PROVIDERS: ADMIT Emergency Medicine
DX: E11.43 Type 2 diabetes mellitus with diabetic autonomic (poly)neuropathy (principal); K31.84 Gastroparesis; E11.65 Type 2 diabetes mellitus with hyperglycemia; Z79.4 Long term (current) use of insulin; E03.9 Hypothyroidism, unspecified; K74.69 Other cirrhosis of liver; D69.59 Other secondary thrombocytopenia; R07.9 Chest pain, unspecified; I10 Essential (primary) hypertension; E66.2 Morbid (severe) obesity with alveolar hypoventilation; Z68.43 Body mass index [BMI] 50.0-59.9, adult; M16.11 Unilateral primary osteoarthritis, right hip; F31.9 Bipolar disorder, unspecified; Z86.19 Personal history of other infectious and parasitic diseases
CPT/HCPCS: 29230; 29247; 29251; 29263; 90004; 90047; 90074; 90098; 90100; 90616; 91588; 92010; 92031; 92235; 92530; 92610; 92710; 92720; 92760; 92761; 92762; 92763; 92764; 92765; 92766; 92767; 94060; 95059

== ENCOUNTER 2016-06-15 21:47 | Inpatient (IN) | payer OTHER ==
[~2016-06-15] VITALS: Ht 160 cm; Wt 163.8 kg
[~2016-06-15 21:47] MED LIST changes: +PHENERGAN EQUIV25 M1 PR; +PHENERGAN EQUIV25 MG PO; +ZOFRAN ODT4 MG PO
--- NOTE | 2016-06-16 00:15 | DIAGNOSTIC IMAGING REPORT ---
PROCEDURE: XR CHEST 1 VIEW INDICATION: SHORTNESS OF BREATH TECHNIQUE: Portable AP view (2-3 hours). COMPARISON: None. FINDINGS: There are mild parenchymal changes in the right mid lung. Left lung is clear. Prominent fat pad at the right cardiophrenic angle. Heart and mediastinum are normal. Thorax is normal. IMPRESSION: 1. Mild parenchymal changes in the right lateral midlung. Consider underlying pneumonia. 2. Otherwise negative chest.
--- NOTE | 2016-06-16 00:30 | DIAGNOSTIC IMAGING REPORT ---
PROCEDURE: CTA THORAX WITH CONTRAST INDICATION: SHORTNESS OF BREATH TECHNIQUE: 84 ml of Isovue 370 was injected intravenously and axial images were obtained of the entire thorax with 3D sagittal and coronal MIP reconstructions. COMPARISON: Comparison is made to chest x-ray earlier today (06/15/2016), and CTA thorax (06/10/2014). Comparison is also made to CT abdomen and pelvis (02/25/2016). FINDINGS: Study is limited due to body habitus and suboptimal opacification. Allowing for this, no large central pulmonary emboli are identified (although subtle emboli would be difficult to exclude). There are mild parenchymal changes in the right lateral midlung and right lung base. Left lung is clear. Heart and mediastinum are normal. Thorax is normal. Status post transhepatic portosystemic shunt. Cholelithiasis (of small layering gallstones). IMPRESSION: 1. Mild parenchymal changes in the right mid and lower lung compatible with pneumonia (e.g., aspiration, bacterial). 2. Limited CT pulmonary arteriogram (body habitus). No evidence of pulmonary embolus. 3. Status post transhepatic shunt. 4. Cholelithiasis (previously documented). 5. Findings discussed with Dr. Philip Green. All CT scans at this facility use dose modulation, iterative reconstruction, and/or weight-based dosing when appropriate to reduce radiation dose to as low as reasonably achievable.
--- NOTE | 2016-06-16 02:19 | ED CLINICAL REPORT ---
Clinical Report - Physicians/Mid Levels [facility] [address] [place] [address] 06/15/2016 21:47 [id number] Time Seen: 21:51; initial patient contact. Arrived- By private vehicle. Historian- patient. HISTORY OF PRESENT ILLNESS Chief Complaint: DYSPNEA and HISTORY OF CHRONIC OBSTRUCTIVE PULMONARY DISEASE. This started today and is still present and worsening. (persistent). It was abrupt in onset. The dyspnea is described as moderate. The dyspnea is worsened by cough. No improvement of dyspnea with rest. The patient has had sputum production, a cough, wheezing, chest pain and foot swelling. She has had anxiety. No fever, sweating episodes, chills, dyspnea on exertion or calf pain. No dizziness or palpitations. Similar symptoms previously: Several times. Recent medical care: Not recently seen/assessed. REVIEW OF SYSTEMS No nausea, vomiting or headache. All systems otherwise negative, except as recorded above. PAST HISTORY Abnormal Liver Function Test. Lifestyle / Substance Problems. Gout. Chest Pain. Hyperglycemia. UTI - Urinary Tract Infection. Renal Insufficiency. Lower Extremity Pain. Arthritis. Back Pain. Chronic Back Pain. Intervertebral Disc Disease. Lumbar Radiculopathy. Degenerative Joint Disease. Pedal Edema. Rt groin pain . COPD - Chronic Obstructive Pulmonary Disease. Gastritis. Dehydration. Contusion. Fall. Sprain. Biliary Colic. Cholelithiasis. Vomiting. Hypomagnesemia. Abdominal Pain. Flank Pain. Cardiovascular Risk Factors. Cirrhosis. Lumbar Strain. Kidney failure. GI Bleeding. Abnormal Test. Rectal Bleed. LNMP - Last Normal Menstrual Period. Hepatitis C. Hypertension. Otitis Media. Obesity. Hepatitis. Bipolar Disorder. Thyroid Disease. Chest Wall Pain. Pharyngitis. Hypothyroidism. Neck Pain. Cervical Strain. Immunizations. Pneumonia. Diabetes Mellitus. SURGERIES: Appendectomy. . Endoscopy. Hysterectomy. Liver biopsy. Shoulder Surgery. TIPs in liver. Tonsillectomy. Tympanostomy Tubes. Medications: OxyCODONE HCl Oral 5 mg (5 times a day). Jardiance Oral (Tablet 10 mg) 2 tablets, day. Levothyroxine Sodium Oral 137 mcg, daily. Lisinopril Oral 5 mg, daily. Lovastatin Oral (Tablet 40 mg) 1 tablet, at bedtime. NovoLOG Subcutaneous per Sliding Scale, before meals. Phenergan (Promethazine) Oral, as needed. Phenergan (Promethazine) Rectal, as needed. QUEtiapine Fumarate Oral 200 mg, daily. Tanzeum Subcutaneous (Pen-injector 30 mg), once a week. Xifaxan Oral (Tablet 550 mg) 1 tablet, 2xdaily. Zofran Oral 4 mg, PRN. Levemir Subcutaneous 150 Units in AM+ 150 units in PM (does not take the same dosing). Allergies: Adhesive. (blister) Aspirin. (stomach pain and nausea) Latex. (blister) Vicodin.(vomiting). SOCIAL HISTORY Former smoker. No alcohol use or drug use. ADDITIONAL NOTES The nursing notes have been reviewed. PHYSICAL EXAM Vital Signs: 06/15/2016 21:52 BP: 165/68. HR: 81. RR: 22. O2 saturation: 99%. Temp: 98.2 F. Have been reviewed. Hypertensive. Heart rate normal. Tachypneic. Temperature normal. Oxygen saturation normal. Appearance: Alert. No acute distress. Eyes: Eyes normal inspection. ENT: Pharynx normal. Neck: No jugular venous distention. CVS: Normal heart rate and rhythm. Heart sounds normal. Respiratory: Mild respiratory distress with accessory muscle use and retractions. Mildly prolonged expirations. Mildly decreased air movement diffusely over both lungs. Expiratory mild bilateral wheezes present. Skin: Skin warm and dry. Normal skin color. No rash. Extremities: Bilateral 1+ pitting edema of the lower extremities involving both lower legs. No calf tenderness. Neuro: Oriented X 3. LABS, X-RAYS, AND EKG EKG: EKG time: (2202). No acute process. No acute ischemia. Normal EKG. Normal sinus rhythm. Rate: 78. Normal P waves. Normal RODRIGO. Normal QRS complex. Normal axis. Normal ST and T waves, QT and QTc. EKG unchanged when compared with prior EKG. The study has been interpreted contemporaneously by me. The study has been independently viewed by me. The EKG appears to be a good tracing. Interpretation time: 2202. Chest X-ray: Diffuse infiltrate in the right middle lobe. Views: AP. Technique: good. The X-rays were independently viewed by me and interpreted contemporaneously by me. A comparison with prior films reveals that the findings are new. Chest CT: (1. Mild parenchymal changes in the right mid and lower lung compatible with pneumonia (e.g., aspiration, bacterial). 2. Limited CT pulmonary arteriogram (body habitus). No evidence of pulmonary embolus. 3. Status post transhepatic shunt. 4. Cholelithiasis (previously documented).). Chest CT performed with contrast. Prior studies were not available for comparison. The study was interpreted by the radiologist and discussed with the radiologist. Lower Extremity Sonography: Negative exam. No compression abnormality noted. The exam was performed by a boiler/chiller technician. The study was interpreted by the radiologist and discussed with the radiologist. Prior studies were not available for comparison. Interpretation time: 01:25. Laboratory Tests: [id number]: (MANISHA: 06/16/2016 01:17) ( MsgRcvd 06/16/2016 01:47) Final results Test Result Flag Units (Reference) LACTIC ACID SEPSIS PROTOCOL 1.6 mmol/L (0.4-2.0) [id number]: (MANISHA: 06/16/2016 00:01) ( MsgRcvd 06/16/2016 02:07) Final results Test Result Flag Units (Reference) PROCALCITONIN <0.5 ng/mL (0-0.5) PCT Concentration: Interpretation : Risk/option for action PCT <=0.5 ng/mL : Systemic : Low risk forinfection(sepsis): progression to severeis not likely. : systemic infection.Local bacterial : CAUTION-PCT levelsinfection is : below 0.5 ng/mL do notpossible. : exclude an infection,because localizedinfections (withoutsystemic signs) may beassociated with suchlow levels. If PCT ismeasured very earlyafter a bacterialchallenge (usually <6hours), these valuesmay still be low. Inthis case PCT shouldbe re-assessed 6-24hours later. PCT >0.5 and : Systemic infection: Moderate risk for<= 2 ng/mL : (sepsis) is : progression to severepossible, but : systemic infection.other conditions : The patient should beare known to : closely monitoredelevate PCT. : both clinically andby re-assessing PCTwithin 6-24 hours. PCT > 2 ng/mL : Systemic infection: High risk for(sepsis) is likely: progression to severeunless other : systemic infection.causes are known. : PCT >= 10 ng/mL : Important systemic: High likelihood ofinflammatory : severe sepsis orresponse, almost : septic shock.exclusively due to:severe bacterial :sepsis or septic :shock. : UA-Culture if indicated: (MANISHA: 06/15/2016 23:20) ( MsgRcvd 06/15/2016 23:35) Final results Test Result Flag Units (Reference) URINE COLOR YELLOW URINE APPEARANCE CLEAR URINE GLUCOSE 3+ (NEGATIVE) URINE BILIRUBIN NEGATIVE (NEGATIVE) URINE KETONE NEGATIVE (NEGATIVE) URINE SPECIFIC GRAVITY <= 1.005 L (1.010-1.030) URINE PH 6.0 (5.0-8.0) URINE PROTEIN NEGATIVE (NEGATIVE) URINE UROBILINOGEN 0.2 EU/dL (0.2-1.0) URINE NITRITE NEGATIVE (NEGATIVE) URINE BLOOD TRACE-LYSED (NEGATIVE) URINE LEUK ESTERASE NEGATIVE (NEGATIVE) URINE RBC 0-1 rbc/hpf (0-1) URINE WBC 0-1 wbc/hpf (0-1) URINE EPITHELIAL CELLS 0-1 EPI/hpf (0-5) URINE BACTERIA NONE SEEN (NONE SEEN) FEW YEAST URINE COMMENT CULT NOT INDICATED URINE CULTURES ARE SET-UP BASED ON THE FOLLOWING CRITERIA:POSITIVE NITRITEPOSITIVE LEUKOCYTE ESTERASEGREATER THAN 10 WHITE BLOOD CELLSMODERATE (2+) OR GREATER BACTERIA CBC w Diff: (MANISHA: 06/15/2016 22:20) ( [facility] [place] 22:32) Final results Test Result Flag Units (Reference) WHITE BLOOD COUNT 2.5 L K/uL (4.5-11.5) RED BLOOD COUNT 3.81 L M/uL (4.00-5.20) HEMOGLOBIN 11.0 L gm/dL (12.0-16.0) HEMATOCRIT 33.0 L % (36.0-46.0) MEAN CELL VOLUME 87 fL (80-100) MEAN CORPUSCULAR HGB 29 pg (26-34) MEAN CORPUSCULAR HGB CONC 33 g/dL (31-37) RED CELL DISTRIBUTION WIDTH 16.6 H % (11.6-14.8) PLATELET COUNT 73 L K/uL (150-400) NEUTROPHIL % 49.5 L % (50-75) LYMPH % 29.7 % (25-40) MONO % 15.1 H % (3-14) EOSINOPHIL % 5.2 H % (0-4) BASOPHIL % 0.5 % (0-2) [id number]: (MANISHA: 06/15/2016 22:20) ( [facility] [place] 06/15/2016 22:46) Final results Test Result Flag Units (Reference) D-DIMER QUANTITATIVE 0.70 H ug/mLFEU (0.27-0.52) The primary value of this quantitative assay relates toits negative predictive value (i.e. exclusion) of pulmonaryembolism/deep vein thrombosis/DIC.Elevated levels of d-dimer may also occur with:, age, cancer, inflammation, liver disease,post-op, infection, hematoma, coronary disease, peripheralarteriopathy, bleeding disorders and thrombolytic treatment.Results should be correlated with other clinical andradiological data.Testing Methodology: Latex Immunoassay CHEM 13 PANEL: (MANISHA: 06/15/2016 22:20) ( MsgRcvd 06/15/2016 22:49) Final results Test Result Flag Units (Reference) GLUCOSE 308 H mg/dL (70-110) BUN 25 H mg/dL (7-18) CREATININE 1.4 H mg/dL (0.6-1.3) Estimated GFR 41.49 mL/min Estimated GFR- 50.29 mL/min Note: Persistent reduction over 3 months in eGFR<60 mL/min/1.73 m2 defines CKD. Patients with eGFR values>=60 mL/min/1.73 m2 may also have CKD if evidence ofpersistent proteinuria. Additional information may be foundat www.kidney.org. SODIUM 139 mmol/L (136-145) POTASSIUM 5.0 mmol/L (3.5-5.1) CHLORIDE 105 mmol/L (98-107) CARBON DIOXIDE 25 mmol/L (21-32) CALCIUM 8.9 mg/dL (8.5-10.1) TOTAL PROTEIN 6.6 g/dL (6.4-8.2) ALBUMIN 3.1 L g/dL (3.3-5.0) BILIRUBIN, TOTAL 0.6 mg/dL (0.0-1.0) ALKALINE PHOSPHATASE 118 H U/L (46-116) AST (SGOT) 48 H U/L (15-37) ALT (SGPT) 34 U/L (12-78) MAGNESIUM 2.3 mg/dL (1.8-2.4) CPK 101 U/L (24-260) TROPONIN I <0.05 L ng/mL (0.00-1.5) TROPONIN REFERENCE RANGE:<0.1 NEGATIVE0.1-1.5 INDETERMINANT>1.5 POSITIVE . PROGRESS AND PROCEDURES Discussed case with hospitalist, (call returned 02:19 Dr. Lo. Will take pt). Reviewed test results and need for additional work-up. Disposition: Observation in Acute Care. Condition: stable. CLINICAL IMPRESSION Acute exacerbation of COPD. Bacterial pneumonia with hypoxemia. Empiric antibiotics given in the ED. Mild chronic renal insufficiency. Type 2 diabetes with hyperglycemia. INSTRUCTIONS Follow-up: Blood pressure screening was not performed during this visit because the patient has an active diagnosis of hypertension. (Electronically signed by Philip Green Dr. 06/16/2016 2:43)
--- NOTE | 2016-06-16 02:20 | ED ORDER SUMMARY ---
..... Patient: VANIA AGUILA OrderSheet [facility] VisitID: [id number] [place] [address] 55y, F Registration Date/Time: 06/15/2016 ORDER SHEET Weight: 151.9 kg (stated) Allergies: Adhesive, Aspirin, Latex, Vicodin GENERAL ORDERS: Chest 1V Urgent (22:16 06/15/2016 Pam Grace) (Ack 22:17 CHagerty ER Truck Operator) (22:24 SBalde R.N.) UA-Culture if indicated Urgent (22:06/15/2016 Pam Grace) (Ack 22:17 CHagerty ER Truck Operator) (0:00 CHagerty ER Truck Operator) Cardiac Panel Stat (22:06/15/2016 Pam Grace) (Ack 22:17 CHagerty ER Truck Operator) (22:24 SBalde R.N.) D-Dimer Urgent (22:06/15/2016 Pam Grace) (Ack 22:17 CHagerty ER Truck Operator) (22:24 SBalde R.N.) EKG - ER Stat (22:06/15/2016 Pam Grace) (22:17 CHagerty ER Truck Operator) CTA Thorax w Cont (Yes) (25/1.4) Urgent (23:31 06/15/2016 Pam Grace) (Ack 23:36 CHagerty ER Truck Operator) (0:00 CHagerty ER Truck Operator) US Venous Bilat (Pos D dimer) Urgent (23:31 06/15/2016 Pam Grace) (Ack 23:36 CHagerty ER Truck Operator) (0:46 EInderbitzen R.N.) Blood Culture (No) (N/A) Urgent (00:43 06/16/2016 Pam Grace) (Ack 0:54 CHagerty ER Truck Operator) (1:29 EInderbitzen R.N.) Lactic Acid for Sepsis Protocol Urgent (00:43 06/16/2016 Pam Grace) (Ack 0:54 CHagerty ER Truck Operator) (1:29 EInderbitzen R.N.) PCT (Procalcitonin) Urgent (00:43 06/16/2016 Pam Grace) (Ack 0:54 CHagabram ER Truck Operator) (1:29 EInderbitzen R.N.) MEDICATION ORDERS: DuoNeb Neb Tx 1 unit dose (NOW) (21:54 06/15/2016 Pam Grace) (22:02 Ara ER Truck Operator) Prednisone PO 40 mg (NOW) (22:16 06/15/2016 Pam Grace) (Ack 22:25 SBalde R.N.) (22:28 SBalde R.N.) Insulin Reg Subcut 10 units (HIGH ALERT MEDICATION, NOW) (02:01 06/16/2016 Pam Grace) (2:09 EInderbitzen R.N.) IV FLUIDS: IV Saline Lock (22:17 06/15/2016 Pam Grace) (22:24 SBalde R.N.) Levaquin IV 750 mg/150 mL (NOW) (01:24 06/16/2016 Pam Grace) (Ack 1:30 EInderbitzen R.N.) (1:40 EInderbitzen R.N.) ORDER SHEET NOTES: [Electronically signed by Philip Green Dr. (02:43 06/16/2016)] [Electronically signed by Daysi Miller R.N. (03:29 06/16/2016)] [Electronically locked/signed by Daysi Miller R.N. (03:29 06/16/2016)]
--- NOTE | 2016-06-16 02:20 | ED NURSING NOTES ---
Clinical Report - Nurses [facility] [address] [place] [address] 06/15/2016 21:47 Patient: VANIA AGUILA TRIAGE Triage time 21:52 Jun 15 2016. Acuity: LEVEL 2. Chief Complaint: CHEST PAIN. Alert. No acute distress. --21:57 Gina Leong R.N. 21:52 06/15/16. BP: 165/68. HR: 81. RR: 22. O2 saturation: 99%. Temp: 98.2 F. Pain level now 0/10. --21:57 Gina Leong R.N. Weight: 151.9 kg stated. Height/Length: 64 inches Per Patient. BMI: 57.5. --21:51 Gina Leong R.N. Medications Levemir Subcutaneous 150 Units in AM+ 150 units in PM (does not take the same dosing). --21:54 Gina Leong R.N. Jardiance Oral (Tablet 10 mg) 2 tablets, day. Levothyroxine Sodium Oral 137 mcg, daily. Lisinopril Oral 5 mg, daily. Lovastatin Oral (Tablet 40 mg) 1 tablet, at bedtime. NovoLOG Subcutaneous per Sliding Scale, before meals. Phenergan (Promethazine) Oral, as needed. Phenergan (Promethazine) Rectal, as needed. QUEtiapine Fumarate Oral 200 mg, daily. Tanzeum Subcutaneous (Pen-injector 30 mg), once a week. Xifaxan Oral (Tablet 550 mg) 1 tablet, 2xdaily. Zofran Oral 4 mg, PRN. --21:54 Gina Leong R.N. OxyCODONE HCl Oral 5 mg (5 times a day). --21:54 Gina Leong R.N. The following entry was struck and corrected by Gina Leong R.N., 21:57 (06/15/16) Reason for correction - other(correction). <<STRICKEN ENTRY-- Levemir Subcutaneous 150 Units in AM+ 150 units in PM. --21:54 Gina Leong R.N. --END STRIKE>>. Medication/allergy information source: the patient. --21:57 Gina Leong R.N. Allergies Adhesive. (blister) Aspirin. (stomach pain and nausea) Latex. (blister) --21:54 Gina Leong R.N. Vicodin.(vomiting) --21:54 Gina Leong R.N. History Arrived by private vehicle. Historian: patient. Primary physician (Dr. Blackwell). ( Lying in bed around 20:00 suddenly felt short of breath. Sudden onset of coughing attack, sat up and had some anxiety with increased shortness of breath. Niece brought pt in.). This started just prior to arrival. She has had difficulty breathing. Treatment BUDGET TECHNICIAN: None. SOCIAL HX: Former smoker. No alcohol use or drug use. FALL RISK ASSESSMENT: Fall risk assessment completed. No fall risk identified. NUTRITIONAL RISK ASSESSMENT: The nutritional risk assessment revealed no deficiencies. FUNCTIONAL ASSESSMENT: Functional assessment: no impairments noted. LEARNING NEEDS ASSESSMENT: The learning needs assessment revealed no barriers. SKIN INTEGRITY ASSESSMENT: Skin integrity risk assessment completed. No skin integrity risk identified. --21:57 Gina Leong R.N. PROBLEMS: Abnormal Liver Function Test. Lifestyle / Substance Problems. Gout. Chest Pain. Hyperglycemia. UTI - Urinary Tract Infection. Renal Insufficiency. Lower Extremity Pain. Arthritis. Back Pain. Chronic Back Pain. Intervertebral Disc Disease. Lumbar Radiculopathy. Degenerative Joint Disease. Pedal Edema. Rt groin pain . COPD - Chronic Obstructive Pulmonary Disease. Gastritis. Dehydration. Contusion. Fall. Sprain. Biliary Colic. Cholelithiasis. Vomiting. Hypomagnesemia. Abdominal Pain. Flank Pain. Cardiovascular Risk Factors. Cirrhosis. Lumbar Strain. Kidney failure. GI Bleeding. Abnormal Test. Rectal Bleed. LNMP - Last Normal Menstrual Period. Hepatitis C. Hypertension. Otitis Media. Obesity. Hepatitis. Bipolar Disorder. Thyroid Disease. Chest Wall Pain. Pharyngitis. Hypothyroidism. Neck Pain. Cervical Strain. Immunizations. Pneumonia. Diabetes Mellitus. --21:56 Gina Leong R.N. ADDITIONAL SURGERIES: Appendectomy. . Endoscopy. Hysterectomy. Liver biopsy. Shoulder Surgery. TIPs in liver. Tonsillectomy. Tympanostomy Tubes. --21:56 Gina Leong R.N. Interventions ID band on patient. To room. --21:57 Gina Leong R.N. PHYSICAL ASSESSMENT To room via wheelchair. GENERAL / NEURO / PSYCH: Appears anxious. RESPIRATORY: Moderate respiratory distress. Decreased breath sounds. Wheezing present. CVS: Capillary refill less than 2 seconds. SKIN: Skin is warm and dry. --22:52 Gina Leong R.N. NURSING PROGRESS NOTES 22:02 06/15/2016 Duoneb (Ipratropium-Albuterol) Neb TX 1 unit dose given. --22:02 Gael Restrepo, CHUY Commercial Development Manager EKG time: (22:05 Jun 15 2016). EKG was performed by a danis and shown to the ED physician. --22:07 Ronnie Cornejo 22:24 06/15/2016 Site #1 started via IV in the left antecubital space with an 20g angiocath; one attempt. Blood drawn: rainbow set. Labeled in the presence of the patient and sent to the lab. Saline lock flushed with 10 mL saline. --22:24 Gina Leong R.N. 22:28 06/15/2016 Prednisone PO 40 mg given. Allergies verified and confirmed 5 rights. --22:28 Gina Leong R.N. Patient waiting for lab and radiology results. --22:52 Gina Leong R.N. Monitoring of patient in place. Patient gowned. Head of bed elevated. Reassurance given. Call light placed in reach. Side rails up x 2. Bed placed in lowest position. Brakes of chair on. --22:53 Gina Leong R.N. ( Pt up to the bathroom with Tracey's assistance.). --23:15 Gina Leong R.N. Clean catch urine collected with return of yellow-colored clear urine; sample sent to lab for urinalysis. Specimen labeled in the presence of the patient. --23:17 Gina Leong R.N. Patient transported to [place] by stretcher with tech. (23:44 Jun 15 2017). --23:44 Gina Leong R.N. 23:41 06/15/16. BP: 126/55. --23:44 Gina Leong R.N. 00:10 06/16/16. Cardiac rhythm: normal sinus rhythm. Patient returned from CT by stretcher. --00:36 Daysi Miller R.N. 00:10 06/16/16. BP: 118/53. HR: 80. RR: 24. O2 saturation: 95%. Pain level now 0/10. --00:36 Daysi Miller R.N. 00:47 06/16/16. ( Ultrasound here). --00:47 Daysi Miller R.N. 01:35 06/16/2016 Started 750 mg of Levaquin (Levofloxacin) IVPB in bag #1 150 mL; at 100 mL/hr over 90 minute(s) via site #1 via IV pump. Allergies verified and confirmed 5 rights. IV patency established. IV site checked: no pain, redness, or swelling. IV flushed thoroughly pre- and post-medication administration. --01:40 Daysi Miller R.N. <<STRICKEN ENTRY-- 01:52 06/16/16. BP: 143/52. HR: 69. RR: 24. O2 saturation: 95%. Pain level now 410. --01:52 Daysi Miller R.N. --END STRIKE>> Change to Details. --02:14 Daysi Miller R.N. 01:52 06/16/16. BP: 143/52. HR: 69. RR: 24. O2 saturation: 95%. Temp: 98.1 F. Pain level now 4/10. --01:52 Daysi Miller R.N. 01:52 06/16/16. Cardiac rhythm: normal sinus rhythm. Patient waiting for disposition. --01:52 Daysi Miller R.N. 02:00 06/16/16. Finger stick glucose: 321; performed by nurse; result shown to the ED physician. --02:00 Daysi Miller R.N. 02:05 06/16/2016 Insulin Reg Subcutaneous 10 unit given. Given in the right upper arm. Allergies verified and confirmed 5 rights. --02:09 Daysi Miller R.N. 03:06 06/16/2016 Levaquin IVPB Discontinued: bag #1 completed. Total amount infused: 150 mL. IV patency established. IV site checked: no pain, redness, or swelling. IV flushed thoroughly. --03:06 Daysi Miller R.N. DISPOSITION / DISCHARGE 03:23 06/16/2016 Site #[address] upon admission; patent. --03:23 Daysi Miller R.N. Condition at departure: improved and stable. The goals identified in the patient's plan of care were met. Admitted to Acute Care. Report was given to a nurse via a phone call. Report included patient's care, treatment, medications, reviewed medication reconcilliation, and condition (including any recent changes or anticipated changes). All questions were answered. (to CHELO Laurent). Patient's personal items; items were placed in belongings bag. --03:23 Daysi Miller R.N. 01:52 06/16/16. BP: 143/52. HR: 69. RR: 24. O2 saturation: 95%. Temp: 98.1 F. Pain level now 4/10. 00:35 06/16/16. BP: 118/53. HR: 80. RR: 24. O2 saturation: 95%. Pain level now 0/10. 23:41 06/15/16. BP: 126/55. 21:52 06/15/16. BP: 165/68. HR: 81. RR: 22. O2 saturation: 99%. Temp: 98.2 F. Pain level now 0/10. --03:23 Daysi Miller R.N. Departure time: 03:Jun 16 2016. --03:29 Daysi Miller R.N. Locked/Released at 06/16/2016 3:29 by Daysi Miller R.N.
--- NOTE | 2016-06-16 02:20 | ED ORDER SUMMARY ---
..... Patient: VANIA AGUILA OrderSheet [facility] VisitID: [id number] [place] [address] 55y, F Registration Date/Time: 06/15/2016 ORDER SHEET Weight: 151.9 kg (stated) Allergies: Adhesive, Aspirin, Latex, Vicodin GENERAL ORDERS: Chest 1V Urgent (22:16 06/15/2016 Pam Grace) (Ack 22:17 CHagerty ER Recreation Officer) (22:24 SBalde R.N.) UA-Culture if indicated Urgent (22:06/15/2016 Pam Grace) (Ack 22:17 CHagerty ER Recreation Officer) (0:00 CHagerty ER Recreation Officer) Cardiac Panel Stat (22:06/15/2016 Pam Grace) (Ack 22:17 CHagerty ER Recreation Officer) (22:24 SBalde R.N.) D-Dimer Urgent (22:06/15/2016 Pam Grace) (Ack 22:17 CHagerty ER Recreation Officer) (22:24 SBalde R.N.) EKG - ER Stat (22:06/15/2016 Pam Grace) (22:17 CHagerty ER Recreation Officer) CTA Thorax w Cont (Yes) (25/1.4) Urgent (23:31 06/15/2016 Pam Grace) (Ack 23:36 CHagerty ER Recreation Officer) (0:00 CHagerty ER Recreation Officer) US Venous Bilat (Pos D dimer) Urgent (23:31 06/15/2016 Pam Grace) (Ack 23:36 CHagerty ER Recreation Officer) (0:46 EInderbitzen R.N.) Blood Culture (No) (N/A) Urgent (00:43 06/16/2016 Pam Grace) (Ack 0:54 CHagerty ER Recreation Officer) (1:29 EInderbitzen R.N.) Lactic Acid for Sepsis Protocol Urgent (00:43 06/16/2016 Pam Grace) (Ack 0:54 CHagerty ER Recreation Officer) (1:29 EInderbitzen R.N.) PCT (Procalcitonin) Urgent (00:43 06/16/2016 Pam Grace) (Ack 0:54 CHagabram ER Recreation Officer) (1:29 EInderbitzen R.N.) MEDICATION ORDERS: DuoNeb Neb Tx 1 unit dose (NOW) (21:54 06/15/2016 Pam Grace) (22:02 Ara ER Recreation Officer) Prednisone PO 40 mg (NOW) (22:16 06/15/2016 Pam Grace) (Ack 22:25 SBalde R.N.) (22:28 SBalde R.N.) Insulin Reg Subcut 10 units (HIGH ALERT MEDICATION, NOW) (02:01 06/16/2016 Pam Grace) (2:09 EInderbitzen R.N.) IV FLUIDS: IV Saline Lock (22:17 06/15/2016 Pam Grace) (22:24 SBalde R.N.) Levaquin IV 750 mg/150 mL (NOW) (01:24 06/16/2016 Pam Grace) (Ack 1:30 EInderbitzen R.N.) (1:40 EInderbitzen R.N.) ORDER SHEET NOTES: [Electronically signed by Philip Green Dr. (02:43 06/16/2016)] [Electronically signed by Daysi Miller R.N. (03:29 06/16/2016)] [Electronically locked/signed by Daysi Miller R.N. (03:29 06/16/2016)]
--- NOTE | 2016-06-16 03:15 | Progress Note ---
Subjective General Admission History and Physical Examination Patient Name: Anabel Valladares Admission Date: June 16, 2016 Primary Care Provider: Ankush Lowe M.D. Attending Physician: Renan Lo M.D. Admitting Physician: Renan Lo M.D. SUBJECTIVE Historian: Patient and family Reliability: Good Chief Complaint: Shortness of breath History of Present Illness: The patient is a 54-year-old white female with a significant past medical history of hepatitis C, cirrhosis, hyperlipidemia, hypertension, hypothyroidism, type 2 diabetes mellitus insulin requiring, chronic pain, obesity, who presented to [facility] emergency room secondary to shortness of breath. [facility] ER evaluation was consistent with asthma/COPD exacerbation, hypoxemia, and pneumonia. Secondary to the above, the patient was admitted by Renan Lo M.D. for further evaluation and treatment. The history of present is began approximately 2 days prior to admission when the patient developed shortness of breath and cough. The cough was productive of yellowish sputum. There is no measured temperature elevation. Her shortness of breath was exacerbated by exertion and relieved with rest. She also experienced orthopnea. Peripheral edema has increased recently. She experience mild chest tightness. Secondary to ongoing shortness of breath and cough the patient presented to [facility] emergency department for further evaluation and treatment. Secondary to the above, the patient was in with a diagnosis of shortness of breath/hypoxia, rule out pneumonia, exacerbation of COPD for further evaluation and treatment. PAST MEDICAL HISTORY Illnesses: 1. Hyperlipidemia 2. Obesity 3. Diabetes mellitus type 2 4. Hepatitis C 5. Cirrhosis 6. Hypothyroidism 7. Chronic pain Allergies: 1. Aspirin 2. Vicodin 3. Latex 4. Adhesive tape Medications: 1. Levemir insulin 50 units subcutaneous every morning when necessary blood sugar greater than 250 mg/dL 2. Jardiance 25 mg 1 by mouth every morning 3. Levothyroxine Sodium Oral 137 mcg, daily. 4. Lisinopril Oral 5 mg, daily. 5. Lovastatin Oral (Tablet 40 mg) 1 tablet, at bedtime. 6. NovoLOG Subcutaneous per Sliding Scale, before meals. 7. Phenergan dosage unknown one by mouth every 6 hours when necessary nausea 8. Phenergan dosage unknown one by mouth every 6 hours. Nausea 9. QUEtiapine Fumarate Oral 400 mg, daily. 10. Xifaxan Oral (Tablet 550 mg) 1 tablet, 2xdaily. 11. Zofran 4 mg by mouth every 4 hours when necessary nausea 12. Oxycodone 5 mg by mouth every 4 hours when necessary pain Surgery: 1. TIPS procedure 2. Right shoulder surgery 3. x2 4. Bilateral tympanostomy tubes 5. Partial hysterectomy Injuries: 1. No significant Hospitalizations: 1. For above medical and surgical items noted above FAMILY HISTORY Parents: 1. Father, Ed, , 86, diabetes mellitus, cancer type unknown, heart disease-type unknown, 2. Mother, [place], living, 73, diabetes mellitus Siblings: 1. Female, living, 58, diabetes mellitus 2. Female, living, 50, ovarian cancer Children: 1. Male, living, 38, healthy 2. Male, , 32, motor vehicle accident Other significant family history: None SOCIAL HISTORY 1. Marital Status: 2. Latter-Day: Caodaism-Taoism 3. 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 Occupational health exposures: None HABITS 1. Tobacco: Cigarettes, past usage stop 2006, 72 pack years. 2. Drugs: None 3. Alcohol: None 4. Caffeine: None HEALTH SUPERVISION Item/Test 1. Vision screen: 2012 2. Cholesterol Profile: 2016 3. PSA: Not applicable 4. CHAU: Not applicable 5. FOBT: Unknown 6. Blood Glucose: 2014 7. Colonoscopy: 2013 8. History and physical exam: 2014 9. Audiogram: 2014 10. Pap smear, pelvic exam: 2016 11. Mammogram: No recent IMMUNIZATIONS: 1. Pneumococcal: 2012 2. Influenza: Unknown 3. Tetanus: Unknown REVIEW OF SYSTEMS Remarkable for those things stated in the history of present illness and past medical history. Seventeen point review of system completed with the following notable findings: General: Fatigue, pain, fever Nose: Nosebleeds, sinus pain/infections Respiratory: Shortness of breath, cough, wheezing, sputum production Cardiovascular: Ankle swelling, hypertension, heart murmur, chest tightness, shortness of breath with exertion and lying flat Musculoskeletal: Back ache, joint stiffness Blood and lymphatic: Anemia, easy bruising Endocrine: Diabetes mellitus, thyroid problems, heat/cold intolerance Psychological: Depression, insomnia, anxiety, Physical Exam Vital Signs / I&Os Vital Signs Date Time Temp Pulse Resp B/P Pulse O2 O2 Flow FiO2 Ox Delivery Rate 06/15 2212 2.0 General Appearance Alert, Oriented X3, Cooperative, Mild distress HEENT Atraumatic, PERRLA, EOMI, Moist mucous membranes Lungs Bilateral expiratory wheezes, mild Neck Supple, No JVD, Bilateral carotid bruit versus transmitted murmur Cardiovascular Regular rate and rhythm, Normal S1 and S2 Abdomen Normal bowel sounds, Soft, No tenderness, Pendulous. Obesity limits exam. Extremities No cyanosis, No clubbing, 1-2+ LE edema Neurological Cranial nerves intact, Strength 5/5 x4 ext's, No lateralizing signs Psych/Mental Status Mental status normal, Mood normal LAB Results Laboratory Tests 06/16 06/16 06/15 0117 0001 2320 Chemistry Lactic Acid (0.4 - 2.0 mmol/L) 1.6 Procalcitonin (0 - 0.5 ng/mL) <0.5 Urines Urine Color YELLOW Urine Appearance CLEAR Urine pH (5.0 - 8.0) 6.0 Ur Specific [place] (1.010 - 1.030) <= 1.005 Urine Protein (NEGATIVE) NEGATIVE Urine Ketones (NEGATIVE) NEGATIVE Urine Blood (NEGATIVE) TRACE-LYSED Urine Nitrite (NEGATIVE) NEGATIVE Urine Bilirubin (NEGATIVE) NEGATIVE Urine Urobilinogen (0.2 - 1.0 EU/dL) 0.2 Ur Leukocyte Esterase (NEGATIVE) NEGATIVE Urine RBC (0 - 1 rbc/hpf) 0-1 Urine WBC (0 - 1 wbc/hpf) 0-1 Ur Epithelial Cells (0 - 5 EPI/hpf) 0-1 Urine Bacteria (NONE SEEN) NONE SEEN Urine Glucose (NEGATIVE) 3+ Urine Comment CULT NOT INDICATED 06/15 2220 Chemistry Plasma Sodium (136 - 145 mmol/L) 139 Plasma Potassium (3.5 - 5.1 mmol/L) 5.0 Plasma Chloride (98 - 107 mmol/L) 105 CO2 (Enzymatic) (21 - 32 mmol/L) 25 BUN (7 - 18 mg/dL) 25 Creatinine (0.6 - 1.3 mg/dL) 1.4 Est GFR ( Amer) (mL/min) 50.29 Est GFR (Non-Af Amer) (mL/min) 41.49 Glucose (70 - 110 mg/dL) 308 Plasma Calcium (8.5 - 10.1 mg/dL) 8.9 Plasma Magnesium (1.8 - 2.4 mg/dL) 2.3 Total Bilirubin (0.0 - 1.0 mg/dL) 0.6 AST (15 - 37 U/L) 48 ALT (12 - 78 U/L) 34 Alkaline Phosphatase (46 - 116 U/L) 118 Creatine Kinase (24 - 260 U/L) 101 Troponin (0.00 - 1.5 ng/mL) <0.05 Total Protein (6.4 - 8.2 g/dL) 6.6 Albumin (3.3 - 5.0 g/dL) 3.1 Coagulation D-Dimer, Quantitative (0.27 - 0.52 ug/mLFEU) 0.70 Hematology WBC (4.5 - 11.5 K/uL) 2.5 RBC (4.00 - 5.20 M/uL) 3.81 Hgb (12.0 - 16.0 gm/dL) 11.0 Hct (36.0 - 46.0 %) 33.0 MCV (80 - 100 fL) 87 MCH (26 - 34 pg) 29 RDW (11.6 - 14.8 %) 16.6 Neut % (Auto) (50 - 75 %) 49.5 Lymph % (Auto) (25 - 40 %) 29.7 Gooding % (Auto) (3 - 14 %) 15.1 Eos % (Auto) (0 - 4 %) 5.2 Baso % (Auto) (0 - 2 %) 0.5 Plt Count, EDTA (150 - 400 K/uL) 73 PUBS MCHC (31 - 37 g/dL) 33 Microbiology Date/Time Procedure - Status Source Growth 06/16 116 Blood Culture - RECD BLOOD 06/16 112 Blood Culture - RECD BLOOD Assessment and Plan Problem List 1. Pneumonia Plan -Patient presents with findings of right-sided pulmonary infiltrate -Afebrile with normal WBC/Procalcitonin -Patient administered Levaquin in the emergency department -Repeat WBC, Procalcitonin with consideration of discontinuation of antimicrobials -Monitor 2. Diabetes mellitus Status Chronic Onset Date Unknown Plan -Patient with a long-standing history of type 2 diabetes mellitus -Insulin requiring -Elevated hemoglobin A1c at 8.4% -Continue insulin sliding scale with low-dose long-acting insulin -Monitor 3. Hypertension Status Chronic Onset Date Unknown Plan -Patient with long-standing history of hypertension. -Continue outpatient medical regimen -Blood pressure 151/53 mmHg -Low-salt diet -Monitor 4. Iron deficiency anemia Status Acute Onset Date Unknown Plan -Patient presents with findings of anemia -H&H 11.0/33.0 -Iron studies consistent with iron deficiency anemia -Iron percent saturation 13% -Begin ferrous sulfate 325 mg by mouth twice a day -Monitor 5. Elevated liver function tests Status Acute Onset Date Unknown Plan -Patient with mild elevation of LFTs AST and alkaline phosphatase -Monitor -Further evaluation if persistent elevation of LFTs 6. COPD with exacerbation Plan -Patient presents with findings of hypoxemia, bronchospasm -Patient responded well to DuoNeb in the emergency department with symptoms improving 50% with treatment -Continue DuoNeb with albuterol when necessary -Solu-Medrol 40 mg IV every 8 hours -O2 supplementation as required -CT scan inconsistent with pulmonary embolism -Outpatient pulmonary function testing secondary to history of smoking, hypoxemia and bronchospasm Current status: Fair, unstable Anticipated discharge date: Anticipated discharge in 2-3 days Anticipated discharge placement: Home Patient care time: Time spent in chart review, patient interview, physical exam, CPOE, and care documentation: 70 minutes Visit to patient today: 1 Complexity of care: High Initial patient evaluation: Emergency department E&M Codes Admission: Inpt-High/[id number]
--- NOTE | 2016-06-16 03:30 | ED DISCHARGE INSTRUCTIONS ---
Patient: VANIA AGUILA General Instructions [facility] VisitID: [id number] [place] [address] 55y, F Registration Date/Time: 06/15/2016 Acute exacerbation of COPD. Bacterial pneumonia with hypoxemia. Empiric antibiotics given in the ED. Mild chronic renal insufficiency. Type 2 diabetes with hyperglycemia. INSTRUCTIONS Follow-up: Blood pressure screening was not performed during this visit because the patient has an active diagnosis of hypertension. (Electronically signed by Philip Green Dr. 06/16/2016 2:43)
--- NOTE | 2016-06-16 03:30 | ED MAR SUMMARY ---
..... Medication Administration Record [facility] [address] [place] [address] Patient: VANIA AGUILA Visit ID: [id number] 55y, F Weight: 151.9 kg Height/Length: 64 in BMI: 57.5 ALLERGIES: Adhesive, Aspirin, Latex, Vicodin Given 22:02 06/15/2016 Gael Restrepo, ER Social Sciences Research Scientist Medication Administered: DUONEB [NEB TX] (IPRATROPIUM-ALBUTEROL), Dose: 1 unit dose Neb TX. Medication Ordered: DuoNeb Neb Tx 1 unit dose (NOW). Given 22:28 06/15/2016 Gina Leong R.N. Medication Administered: PREDNISONE [PO], Dose: 40 mg PO. Medication Ordered: Prednisone PO 40 mg (NOW). Start 01:35 06/16/2016 Daysi Miller R.N., Stop 03:06 06/16/2016 Daysi Miller R.N. Medication Administered: LEVAQUIN [IVPB] (LEVOFLOXACIN), Dose: 750 mg IVPB over 90 minute(s), Rate: 100 mL/hr, Dispensed: 150 mL bag, Site: #1 left . Medication Ordered: Levaquin IV 750 mg/150 mL (NOW). Given 02:05 06/16/2016 Daysi Miller R.N. Medication Administered: INSULIN REG [SUBCUTANEOUS], Dose: 10 unit Subcutaneous. Medication Ordered: Insulin Reg Subcut 10 units (HIGH ALERT MEDICATION, NOW).
--- NOTE | 2016-06-16 03:30 | ED DISCHARGE INSTRUCTIONS ---
Patient: VANIA AGUILA General Instructions [facility] VisitID: [id number] [address] [place] [address] 55y, F Registration Date/Time: 06/15/2016 Acute exacerbation of COPD. Bacterial pneumonia with hypoxemia. Empiric antibiotics given in the ED. Mild chronic renal insufficiency. Type 2 diabetes with hyperglycemia. INSTRUCTIONS Follow-up: Blood pressure screening was not performed during this visit because the patient has an active diagnosis of hypertension. (Electronically signed by Philip Green Dr. 06/16/2016 2:43)
--- NOTE | 2016-06-16 03:30 | ED MED RECONCILIATION SUMMARY ---
Patient: VANIA AGUILA Medication Reconciliation Report [facility] VisitID: [id number] [address] [place] [address] 55y, F Registration Date/Time: 06/15/2016 Weight: 151.9 kg Height/Length: 64 in. BMI: 57.5 ALLERGIES: Adhesive, Aspirin, Latex, Vicodin The patient's Home Medications are listed below: THE FOLLOWING MEDICATIONS NEED TO BE RECONCILED: Jardiance Oral (10 mg) 2 tablets, day Levemir Subcutaneous 150 Units in AM+ 150 units in PM, does not take the same dosing Levothyroxine Sodium Oral 137 mcg, daily Lisinopril Oral 5 mg, daily Lovastatin Oral (40 mg) 1 tablet, at bedtime NovoLOG Subcutaneous per Sliding Scale, before meals OxyCODONE HCl Oral 5 mg, 5 times a day Phenergan (Promethazine) Oral Phenergan (Promethazine) Rectal QUEtiapine Fumarate Oral 200 mg, daily Tanzeum Subcutaneous (30 mg), once a week Xifaxan Oral (550 mg) 1 tablet, 2xdaily Zofran Oral 4 mg, PRN The source(s) of the original Home Medication information: patient The following Medications were given to the patient in the Emergency Department: Duoneb [Neb Tx] Neb TX 1 unit dose, administered: 06/15/2016 10:02:00 PM Prednisone [PO] PO 40 mg, administered: 06/15/2016 10:28:00 PM Levaquin [IVPB] IVPB bolus 0, then 750 mg 100 mL/hr, administered: 06/16/2016 1:35:00 AM Insulin Reg [Subcutaneous] Subcutaneous 10 unit, administered: 06/16/2016 2:05:00 AM The following Medications were prescribed to the patient: None.
--- NOTE | 2016-06-16 03:30 | ED MAR SUMMARY ---
..... 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 Medication Ordered: DuoNeb Neb Tx 1 unit dose (NOW). Given 22:28 06/15/2016 Gina Leong R.N. Medication Administered: PREDNISONE [PO], Dose: 40 mg PO. Medication Ordered: Prednisone PO 40 mg (NOW). Start 01:35 06/16/2016 Daysi Miller R.N., Stop 03:06 06/16/2016 Daysi Miller R.N. Medication Administered: LEVAQUIN [IVPB] (LEVOFLOXACIN), Dose: 750 mg IVPB over 90 minute(s), Rate: 100 mL/hr, Dispensed: 150 mL bag, Site: #1 left . Medication Ordered: Levaquin IV 750 mg/150 mL (NOW). Given 02:05 06/16/2016 Daysi Miller R.N. Medication Administered: INSULIN REG [SUBCUTANEOUS], Dose: 10 unit Subcutaneous. Medication Ordered: Insulin Reg Subcut 10 units (HIGH ALERT MEDICATION, NOW).
--- NOTE | 2016-06-16 03:30 | ED MED RECONCILIATION SUMMARY ---
Patient: VANIA AGUILA Medication Reconciliation Report [facility] VisitID: [id number] [address] [place] [address] 55y, F Registration Date/Time: 06/15/2016 Weight: 151.9 kg Height/Length: 64 in. BMI: 57.5 ALLERGIES: Adhesive, Aspirin, Latex, Vicodin The patient's Home Medications are listed below: THE FOLLOWING MEDICATIONS NEED TO BE RECONCILED: Jardiance Oral (10 mg) 2 tablets, day Levemir Subcutaneous 150 Units in AM+ 150 units in PM, does not take the same dosing Levothyroxine Sodium Oral 137 mcg, daily Lisinopril Oral 5 mg, daily Lovastatin Oral (40 mg) 1 tablet, at bedtime NovoLOG Subcutaneous per Sliding Scale, before meals OxyCODONE HCl Oral 5 mg, 5 times a day Phenergan (Promethazine) Oral Phenergan (Promethazine) Rectal QUEtiapine Fumarate Oral 200 mg, daily Tanzeum Subcutaneous (30 mg), once a week Xifaxan Oral (550 mg) 1 tablet, 2xdaily Zofran Oral 4 mg, PRN The source(s) of the original Home Medication information: patient The following Medications were given to the patient in the Emergency Department: Duoneb [Neb Tx] Neb TX 1 unit dose, administered: 06/15/2016 10:02:00 PM Prednisone [PO] PO 40 mg, administered: 06/15/2016 10:28:00 PM Levaquin [IVPB] IVPB bolus 0, then 750 mg 100 mL/hr, administered: 06/16/2016 1:35:00 AM Insulin Reg [Subcutaneous] Subcutaneous 10 unit, administered: 06/16/2016 2:05:00 AM The following Medications were prescribed to the patient: None.
[2016-06-16 03:40] VITALS: BP 151/53
[2016-06-16] MEDS ORDERED: JARDIANCE25 MG PO (05:54)
[2016-06-16] MEDS ORDERED: ZOFRAN ODT4 MG PO (05:59)
[2016-06-16] MEDS ORDERED: PHENERGAN12.5 M1 PR (06:01)
[2016-06-16] MEDS ORDERED: PHENERGAN EQUIV25 MG PO (06:02)
[2016-06-16 06:25] VITALS: BP 115/55
[2016-06-16 11:09] VITALS: BP 103/44
--- NOTE | 2016-06-16 13:33 | DIAGNOSTIC IMAGING REPORT ---
PROCEDURE: US VENOUS - BILATERAL EXT INDICATION: SWELLING TECHNIQUE: Color Doppler duplex imaging of the deep and superficial venous system without and with compression. COMPARISON: None. FINDINGS: RIGHT LOWER EXTREMITY: Deep and superficial venous system of the right lower extremity is within normal limits. There is no evidence of deep vein thrombosis or superficial thrombophlebitis. LEFT LOWER EXTREMITY: Deep and superficial venous system of the left lower extremity is within normal limits. There is no evidence of deep vein thrombosis or superficial thrombophlebitis. IMPRESSION: 1. Negative venous ultrasound of the bilateral lower extremities.
[2016-06-16 14:55] VITALS: BP 132/63
[2016-06-16 18:15] VITALS: BP 132/64
--- NOTE | 2016-06-16 21:20 | NUR ---
2004 FSBS >500 TWICE. 15 UNITS SLIDING SCALE AND 20 OF LANTUS ADMINISTERED. LAB CALLED FOR STAT DRAW. MD BURROUGHS NOTIFIED OF FSBS AND INSULIN ADMINISTERED. MANJEET ORDERED ADDITIONAL 20 LANTUS TO BE ADMINISTERED. ADMINISTERED ORDERED. LAB NOTIFIED RN BG DRAW 706. MANJEET NOTIFIED. ADDITIONAL 10 UNITS LISPRO ORDERED TO BE GIVEN IV. WILL ADMINISTER ORDERED. SOLEDAD.
[2016-06-16 22:24] VITALS: BP 124/56
[2016-06-17] VITALS (13 sets, daily range): BP systolic 112–141; BP diastolic 51–66
--- NOTE | 2016-06-17 00:10 | NUR ---
PATIENTS FSBS AGAIN >500. MD BURROUGHS IMMEDIATELY NOTIFIED, ORDERS RECEIVED FOR LISPRO AND LAB BLOOD GLUCOSE DRAW. WILL ADMINISTER ORDERED AND CTM.
--- NOTE | 2016-06-17 04:52 | NUR ---
0420 NOTIFIED MD BURROUGHS FSBS >500. ORDERS TO HAVE LAB BLOOD GLUCOSE DRAWN. NO OTHER ORDERS. 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 WILL CONTINUE TO TRY TO REACH. PATIENT IS REFUSING LAB DRAW AT THIS TIME, RN PROVIDED EDUCATION AND NOTIFIED. HANS.
--- NOTE | 2016-06-17 08:43 | NUR ---
0830- BLOOD SUGAR 469 PT C/O SEVERE THIRST MD NOTIFIED OF BLOOD SUGAR. PER PROTOCOL WILL RECHECK AND RETREAT IN 1 HOUR. MD TO BE NOTIFIED WHEN >350
--- NOTE | 2016-06-17 09:56 | NUR ---
0930- PT IS RESTING IN BED. STILL C/O THIRST AND FREQ URINATION. DENIES NAUSEA. BS >500, PT REFUSING CONFIRMATORY LAB DRAW. MD FLORES NOTIFIED THAT BS PERSISTS >500. I AM UNABLE TO CONFIRM EXACT GLUCOSE AT THIS TIME. QUESTIONED MD IF PT REQUIRES INSULIN GTT, BS >500 FOR OVER 12 HOURS. SUGGESTED ABG. PT CONSENTS TO ABG AT THIS TIME. MD FLORES STATES HE DOES NOT FEEL IT IS NECESSARY, AND WILL ORDER IF BS "CONTINUES HIGH IN THE NEXT COUPLE OF HOURS." CURRENTLY WILL CONTINUE TO CHECK AND RETREAT PER PROTOCOL Q1H FOR BS >350.
--- NOTE | 2016-06-17 13:59 | NUR ---
1300- report called to CHELO Fuentes in CCU.
--- NOTE | 2016-06-17 15:45 | NUR ---
NUTRITION ASSESSMENT: S: Pt admitted with dx/o PNA. PMH includes: hyperlipidemia, obesity, type II diabetes, heptatis C, cirrhosis, hypothyroidism, chronic pain. Pt transferred to CCU today for insulin drip tx. PO intake ~50-100%. Pt has refused diabetes info in the past x last 2 admissions. O: Diet Rx: Consistent Carb NKFA Wts: 160 kg Ht: 63" IBW: 59-68 kg %IBW: ~235% BMI: 62.5 ABW: ~92 Est Kcals: ~8209-0758 kcals per day Est Pro: ~92-110 g per day Est Fluids: ~2760 mls per day Labs Incl: (06/17) glucose 572, BUN 36, Creat 1.3, Na+ 140, K+ 5.3, Ca+ 9.0, total pro 6.1, albumin 3.1, HCT 29.6, HGB 9.7, MCV 87, MCH 28 (06/16) A1c: 8.4 (est average 194) A1c 12/17/15: 11.3 Meds Incl: lipitor, Fe, lasix,*insulin, levothryoxine, prednisone, protonix, rifaxamin, seroquel, (*insulin includes High dose SSI, and insulin drip). Skin: Yuriy Score: 20, waffle overlay in place Accuckecks: 317-500 (range) A/P: Pts appetite appears intactl, insulin drip in place 2/2 accucheck results/labs. Pt BMI; morbid obesity, good to see no wt gain since last admission in dec 2015: 163.5 kg. Also, A1c on downward trend. Rev'd meds and labs. Fe and levothroxine given hours apart for prevention of drug:Fe interaction. Rec continue current diet as appears appropriate and tolerated. RD to follow up prn/protocol.
--- NOTE | 2016-06-17 18:14 | NUR ---
INSULIN GTT GOING, NOW AT 4UNITS/HR. PAIN MED INCREASED TO 10MG OXYCODONE HER COUGHING IS PAINFUL. A/OX3, BS CTA BUT DECREASED IN BASES, RA SATS 95%. HER COUGH IS DRY.
--- NOTE | 2016-06-17 18:39 | Progress Note ---
Subjective General Patient seen and examined. Patient is still having persistent wheezing and poor air exchange. Additionally patient was seen to be very hyperglycemic overnight, patients hyperglycemia was not resolving appropriately and the patient had to be placed on an insulin drip and monitored. Patient is otherwise stable. Constitutional Denies: Fever, Chills, Sweats, Weakness, Malaise, Other. Eyes Denies: Pain, Vision Change, Conjunctival Inflammation, Eyelid Inflammation, Redness, Other. Respiratory SOB w/exertion, Wheezing. Denies: Cough, Dry, Hemoptysis, Pleuritic Pain, Sputum, Other. Cardiovascular Denies: Chest Pain, Palpitations, Orthopnea, PND, Edema, Light-headedness, Other. Gastrointestinal Denies: Nausea, Vomiting, Abdominal Pain, Diarrhea, Constipation, Melena, Hematochezia, Other. Genitourinary Denies: Dysuria, Frequency, Incontinence, Hematuria, Retention, Other. Musculoskeletal Denies: Neck Pain, Shoulder Pain, Arm Pain, Back Pain, Hand Pain, Leg Pain, Foot Pain, Other. Skin Denies: Rash, Lesions, Jaundice, Bruising, Other. Neurological Denies: Weakness, Numbness, Incoordination, Change in speech, Confusion, Seizures, Other. Physical Exam Vital Signs / I&Os Vital Signs Date Time Temp Pulse Resp B/P Pulse O2 O2 Flow FiO2 Ox Delivery Rate 06/17 1820 97.7 06/17 1815 91 16 141/63 96 06/17 1705 75 15 136/58 95 06/17 1600 76 18 137/61 94 06/17 1519 79 19 121/54 92 06/17 1429 94 14 128/56 91 06/17 1017 97.7 81 23 133/66 95 Room Air 0.0 06/17 0744 97.5 81 22 119/61 93 Room Air 0.0 06/17 0319 97.7 78 18 112/51 92 Room Air 06/16 2224 98.1 95 20 124/56 94 Room Air 06/16 2100 Room Air I&O 06/16 0800 06/16 1600 06/17 0000 Intake Total 1655 480 Output Total 400 600 Balance -400 1655 -120 General Appearance Alert, Oriented X3, No acute distress HEENT Normal exam, Atraumatic, Moist mucous membranes Lungs Clear to auscultation, Normal air movement Neck Supple, No JVD, No thyromegaly Cardiovascular Regular rate and rhythm, Normal S1 and S2, No murmurs, gallops, rubs Abdomen Soft, No tenderness, No guarding Extremities No cyanosis, Normal pulses, No tenderness Skin No Breakdown, No Significant Lesions Neurological Normal speech, Normal tone, Sensation intact Psych/Mental Status Mood normal LAB Results Laboratory Tests 06/16 06/17 06/17 06/17 2035 0030 0505 0505 Chemistry Plasma Sodium (136 - 145 mmol/L) 140 Plasma Potassium (3.5 - 5.1 mmol/L) 5.3 Plasma Chloride (98 - 107 mmol/L) 105 CO2 (Enzymatic) (21 - 32 mmol/L) 22 BUN (7 - 18 mg/dL) 36 Creatinine (0.6 - 1.3 mg/dL) 1.3 Est GFR ( Amer) (mL/min) 54.78 Est GFR (Non-Af Amer) (mL/min) 45.20 Glucose (70 - 110 mg/dL) 706 606 572 563 Plasma Calcium (8.5 - 10.1 mg/dL) 9.0 Total Bilirubin (0.0 - 1.0 mg/dL) 0.4 AST (15 - 37 U/L) 20 ALT (12 - 78 U/L) 29 Alkaline Phosphatase (46 - 116 U/L) 100 Total Protein (6.4 - 8.2 g/dL) 6.1 Albumin (3.3 - 5.0 g/dL) 3.1 Hematology WBC (4.5 - 11.5 K/uL) 2.6 RBC (4.00 - 5.20 M/uL) 3.42 Hgb (12.0 - 16.0 gm/dL) 9.7 Hct (36.0 - 46.0 %) 29.6 MCV (80 - 100 fL) 87 MCH (26 - 34 pg) 28 RDW (11.6 - 14.8 %) 17.0 Neut % (Auto) (50 - 75 %) 78.9 Lymph % (Auto) (25 - 40 %) 15.9 Mcculloch % (Auto) (3 - 14 %) 5.1 Eos % (Auto) (0 - 4 %) 0.1 Baso % (Auto) (0 - 2 %) 0 Plt Count, EDTA (150 - 400 K/uL) 67 PUBS MCHC (31 - 37 g/dL) 33 Assessment and Plan Problem List 1. COPD with exacerbation Plan - will continue with scheduled duonebs and slowly titrate down steroids - will monitor on pulse oximetry - anticipated discharge tomorrow if blood sugars are controlled. 2. Hyperglycemia due to type 2 diabetes mellitus Plan - pt has been having persistently elevated blood sugars secondary to steroids - pt placed on insulin drip with better control - pts insulin regimen does not make sense and apparently patient has been using long acting insulin as a slidin scale - will c/w lantus 40 units bid with coverage - when off of steroids will calculate insulin requirement 3. Hypertension Status Chronic Onset Date Unknown Plan c/w home meds
--- NOTE | 2016-06-17 19:59 | NUR ---
I discussed with the patient their current medications, possible side effects, and answered questions.
[2016-06-18] VITALS (23 sets, daily range): BP systolic 116–160; BP diastolic 47–102
--- NOTE | 2016-06-18 02:45 | NUR ---
A/Ox4, SR 70's no ectopy, exp wheezes 1L n/c while asleep will desat to 86-87 on RA, currently 93%, up in chair most of shift, amb to BR with SBA now back in bed, BG 300 range, continue on insulin gtt. Using call light appropriately for safety/fall prevention.
--- NOTE | 2016-06-18 06:26 | Progress Note ---
Subjective General Note Date: June 18, 2016 Admission Date: June 16, 2016 Hospital Day: 3 PCP: Ankush Blackwell M.D. Status: Inpatient Advanced Directive: FULL CODE Room: 301 Brief History: The patient is a 54-year-old white female with a significant past medical history of hepatitis C, cirrhosis, hyperlipidemia, hypertension, hypothyroidism, type 2 diabetes mellitus insulin requiring, chronic pain, obesity, who presented to [facility] emergency room secondary to shortness of breath. [facility] ER evaluation was consistent with asthma/COPD exacerbation, hypoxemia, and pneumonia. Secondary to the above, the patient was admitted by Renan Lo M.D. for further evaluation and treatment. For other history present illness, past medical history, family history, social history, review of systems, and admission physical examination please see the patient's history and physical examination and ER visit note in the patient's medical record. Subjective: The patient states she is doing somewhat better today. Blood sugars remain high. Breathing improved. Patient requests: No specific Medications and Allergies Medications Current Medications Sig/Yanelis Start time Last Medication Dose Route Stop Time Status Admin Prednisone 20 MG BID 06/18 0900 UNV PO Insulin Glargine 40 UNITS BID 06/17 2100 AC SC Insulin Human Regular 100 UNITS ASDIRECTED 06/17 2000 AC IV Sodium Chloride 100 ML .FOR AFTER HOURS 06/17 2000 AC IV Oxycodone HCl See Dose Q4H PRN 06/17 1715 AC 06/18 Insts (1) PO 0540 Dextrose 25 ML ASDIRECTED PRN 06/17 1130 AC IV Insulin Human Lispro See Dose ACHS 06/17 1130 AC 06/17 Insts (2) SC 1306 Insulin Human Regular 100 UNITS ASDIRECTED 06/17 1130 AC 06/18 Sodium Chloride 100 ML IV 0611 Sodium Chloride 1,000 ML ASDIRECTED 06/17 1130 AC 06/18 IV 0304 Pantoprazole Sodium 40 MG 0600 06/17 0600 AC 06/18 Sesquihydrate PO 0516 Quetiapine Fumarate 200 MG QHS 06/16 2100 AC 06/17 PO 2159 Atorvastatin Calcium 40 MG QPM 06/16 1800 AC 06/17 PO 1749 Ferrous Sulfate 325 MG BIDWC 06/16 0900 AC 06/17 PO 1749 Furosemide 20 MG DAILY 06/16 0900 AC 06/17 PO 0833 Levothyroxine Sodium 112 MCG DAILY@0600 06/16 0900 AC 06/18 PO 0516 Levothyroxine Sodium 25 MCG DAILY@0600 06/16 0900 AC 06/18 PO 0516 Lisinopril 5 MG DAILY 06/16 0900 AC 06/17 PO 0833 Rifaximin 550 MG BID 06/16 0900 AC 06/17 PO 2159 Albuterol/Ipratropium 3 ML RTQ6H 06/16 0800 AC 06/18 IN 0116 Acetaminophen 650 MG Q6H PRN 06/16 0330 AC 06/16 PO 2016 Albuterol Sulfate 2.5 MG RTQ3H PRN 06/16 0330 AC 06/18 IN 0520 Ondansetron HCl 4 MG Q6H PRN 06/16 0330 AC IV Dose Instructions: (1)Oxycodone HCl: 5 - 10 MG (2)Insulin Human Lispro: HIGH DOSE SLIDING SCALE Allergies Coded Allergies: Aspirin (Nausea 06/16/16) Latex (BLISTERS 06/16/16) Hydrocodone (Severe, Nausea 06/16/16) Uncoded Allergies: ADHESIVE TAPE (Intermediate, BLISTERS 04/03/14) Physical Exam Vital Signs / I&Os Vital Signs Date Time Temp Pulse Resp B/P Pulse O2 O2 Flow FiO2 Ox Delivery Rate 06/18 0600 82 21 131/47 94 Nasal 1.0 Cannula 06/18 0520 1.0 06/18 0500 78 21 137/70 90 Nasal 1.0 Cannula 06/18 0400 71 93 122/61 92 Nasal 1.0 Cannula 06/18 0300 98.1 79 16 136/66 92 Nasal 1.0 Cannula 06/18 0200 77 16 116/50 92 Nasal 1.0 Cannula 06/18 0148 78 17 142/67 93 Nasal 1.0 Cannula 06/18 0116 1.0 06/18 0000 74 17 140/61 93 Nasal 1.0 Cannula 06/17 2300 98.1 82 17 137/62 94 Nasal 1.0 Cannula 06/17 2200 83 20 124/56 91 06/17 2112 84 20 140/62 91 Nasal 1.0 Cannula 06/18 2011 79 20 135/57 97 06/17 2010 1.0 06/17 1904 79 20 141/54 91 06/17 1820 97.7 06/17 1815 91 16 141/63 96 06/17 1705 75 15 136/58 95 06/17 1600 76 18 137/61 94 06/17 1519 79 19 121/54 92 06/17 1429 94 14 128/56 91 06/17 1017 97.7 81 23 133/66 95 Room Air 0.0 06/17 0744 97.5 81 22 119/61 93 Room Air 0.0 I&O 06/18 0000 06/17 1600 06/17 0800 Intake Total 016 557 1488 Output Total 587 947 1437 Balance -160 10 618 General Appearance Alert, Oriented X3, Cooperative, No acute distress Lungs Mild expiratory wheezes. Scattered rhonchi. Cardiovascular Regular rate and rhythm, Normal S1 and S2 Abdomen Normal bowel sounds, Soft, No tenderness Extremities No cyanosis, No clubbing Neurological Cranial nerves intact, No lateralizing signs Psych/Mental Status Mental status normal, Mood normal LAB Results Laboratory Tests 06/18 0405 Chemistry Plasma Sodium (136 - 145 mmol/L) 142 Plasma Potassium (3.5 - 5.1 mmol/L) 5.0 Plasma Chloride (98 - 107 mmol/L) 110 CO2 (Enzymatic) (21 - 32 mmol/L) 22 BUN (7 - 18 mg/dL) 38 Creatinine (0.6 - 1.3 mg/dL) 1.3 Est GFR ( Amer) (mL/min) 54.78 Est GFR (Non-Af Amer) (mL/min) 45.20 Glucose (70 - 110 mg/dL) 277 Plasma Calcium (8.5 - 10.1 mg/dL) 8.9 Hematology WBC (4.5 - 11.5 K/uL) 3.3 RBC (4.00 - 5.20 M/uL) 3.38 Hgb (12.0 - 16.0 gm/dL) 9.8 Hct (36.0 - 46.0 %) 29.7 MCV (80 - 100 fL) 88 MCH (26 - 34 pg) 29 RDW (11.6 - 14.8 %) 16.9 Neut % (Auto) (50 - 75 %) Pending Lymph % (Auto) (25 - 40 %) Pending [place] % (Auto) (3 - 14 %) Pending Band Neutrophils % (0 - 8 %) Pending Plt Count, EDTA (150 - 400 K/uL) 68 PUBS MCHC (31 - 37 g/dL) 33 Assessment and Plan Problem List 1. COPD with exacerbation Plan -Slow improvement -Switch to oral corticosteroids in the form of prednisone 20 mg by mouth twice a day -Continue inhalation bronchodilators -Wean supplemental oxygen -Expected discharge in a.m. 2. Hyperglycemia due to type 2 diabetes mellitus Plan -Persistent hyperglycemia with severe insulin resistance -Continue insulin drip switching to subcutaneous insulin this p.m. with associated insulin sliding scale -Monitor 3. Iron deficiency anemia Status Acute Onset Date Unknown Plan -Patient with history of iron deficiency anemia -Ferrous sulfate 325 mg by mouth twice a day -Monitor 4. Elevated liver function tests Status Acute Onset Date Unknown Plan -Resolved 5. Hypertension Status Chronic Onset Date Unknown Plan -Blood pressure mildly elevated. -BP 131/62 mmHg -Monitor -Low-salt diet 6. Pneumonia Plan -Afebrile -WBC within normal limits -Procalcitonin within normal limits -No antimicrobial therapy at this time Current status: Fair, improved Anticipated discharge date: Anticipated discharge in a.m. if blood sugar improved Anticipated discharge placement: Home Patient care time: Time spent in chart review, patient interview, physical exam, CPOE, and care documentation: 25 minutes Visit to patient today: 1 Complexity of care: Moderate E&M Codes Rounding: Inpt-Moderate/[id number]
--- NOTE | 2016-06-18 12:03 | NUR ---
PT HAS BEEN FAIRLY LETHARGIC TODAY, ROUSES EASILY. SATS 92% ON ROOM AIR. SOB WITH EXERTION. LUNG SOUNDS DIMINISHED THROUGHOUT WITH SCATTERED FAINT WHEEZES. TELE IN NSR. INSULIN GTT CURRENTLY AT 12 UNITS/HR, CONSULTING WITH MD HOURLY FOR ANY CHANGES TO DRIP RATE. LAST BG 273. WCTM.
--- NOTE | 2016-06-18 23:17 | NUR ---
Pt is currently off Insulin gtt and received Lantus 100 units. BG 140's, Pt taking po food/water, up to BR to void, family left for the evening. Non skid socks and call light for safety and fall prevention.
[2016-06-19] VITALS (7 sets, daily range): BP systolic 109–170; BP diastolic 57–76
--- NOTE | 2016-06-19 10:54 | NUR ---
NUTRITION FOLLOW UP NOTE/CONSULT: Pt given written and verbal info this am on low carb diet 3 carb breakfast, 3 carb lunch and 4 carb dinner with 1 carb snack with protein at hs. Pt also given list of "foods to choose and foods to lose", "tips for weight loss" and overal nutrition therapy for type II diabetes. Discussed small meals, portion sizes, etc. Pt appeared to understand info given today. Per MD blood sugars down some and pt off insulin drip. RD avail for futher consult if desired, will follow up prn/protocol.
--- NOTE | 2016-06-19 12:54 | NUR ---
Weaned patient down to 1 L O2, nasal cannula. Patient was maintaining O2 sat at 92% on 1L. Patient wanted to go for a walk. Patient unable to complete one lap around 3rd floor. Desat'd down to 83% and had to sit down. Patient was put on oxygen and brought back to her room in a wheelchair. Patient was put on 3L oxygen and is now maintaining oxygen sat of 93% on 3L. This nurse notified Dr. Lo of patient's oxygen sats on ambulation and also of blood sugar at lunch time. Will continue to monitor patient.
--- NOTE | 2016-06-19 15:02 | Progress Note ---
Subjective General Note Date: June 19, 2016 Admission Date: June 16, 2016 Hospital Day: 4 PCP: Ankush Blackwell M.D. Status: Inpatient Advanced Directive: FULL CODE Room: 301 Brief History: The patient is a 54-year-old white female with a significant past medical history of hepatitis C, cirrhosis, hyperlipidemia, hypertension, hypothyroidism, type 2 diabetes mellitus insulin requiring, chronic pain, obesity, who presented to [facility] emergency room secondary to shortness of breath. [facility] ER evaluation was consistent with asthma/COPD exacerbation, hypoxemia, and pneumonia. Secondary to the above, the patient was admitted by Renan Lo M.D. for further evaluation and treatment. For other history present illness, past medical history, family history, social history, review of systems, and admission physical examination please see the patient's history and physical examination and ER visit note in the patient's medical record. Subjective: The patient states she is doing somewhat better today. Persistent mild shortness of breath/wheezing. No other specific complaints Patient requests: No specific Medications and Allergies Medications Current Medications Sig/Yanelis Start time Last Medication Dose Route Stop Time Status Admin Insulin Human Lispro See Dose ACHS 06/18 2100 AC 06/19 Insts (1) SC 1209 Insulin Glargine 100 UNITS Q12HR 06/18 2000 AC 06/19 SC 0812 Guaifenesin/ 10 ML Q4H PRN 06/18 1730 AC 06/19 Dextromethorphan PO 0250 Prednisone 20 MG BID 06/18 09 AC 06/19 PO 0812 Sodium Chloride 100 ML .FOR AFTER HOURS 06/17 2000 AC IV Oxycodone HCl See Dose Q4H PRN 06/17 1715 AC 06/19 Insts (2) PO 1404 Dextrose 25 ML ASDIRECTED PRN 06/17 1130 AC IV Sodium Chloride 1,000 ML ASDIRECTED 06/17 1130 AC 06/19 IV 0533 Pantoprazole Sodium 40 MG 0600 06/17 0600 AC 06/19 Sesquihydrate PO 0529 Quetiapine Fumarate 200 MG QHS 06/16 2100 AC 06/18 PO 2208 Atorvastatin Calcium 40 MG QPM 06/16 1800 AC 06/18 PO 1713 Ferrous Sulfate 325 MG BIDWC 06/16 0900 AC 06/19 PO 0812 Furosemide 20 MG DAILY 06/16 0900 AC 06/19 PO 0812 Levothyroxine Sodium 112 MCG DAILY@0600 06/16 0900 AC 06/19 PO 0529 Levothyroxine Sodium 25 MCG DAILY@0600 06/16 0900 AC 06/19 PO 0529 Lisinopril 5 MG DAILY 06/16 0900 AC 06/19 PO 08 Rifaximin 550 MG BID 06/16 0900 AC 06/19 PO 0812 Albuterol/Ipratropium 3 ML RTQ6H 06/16 0800 AC 06/19 IN 1419 Acetaminophen 650 MG Q6H PRN 06/16 0330 AC 06/16 PO 2016 Albuterol Sulfate 2.5 MG RTQ3H PRN 06/16 0330 AC 06/18 IN 0520 Ondansetron HCl 4 MG Q6H PRN 06/16 0330 AC IV Dose Instructions: (1)Insulin Human Lispro: HIGH DOSE SLIDING SCALE (2)Oxycodone HCl: 5 - 10 MG Allergies Coded Allergies: Aspirin (Nausea 06/16/16) Latex (BLISTERS 06/16/16) Hydrocodone (Severe, Nausea 06/16/16) Uncoded Allergies: ADHESIVE TAPE (Intermediate, BLISTERS 04/03/14) Physical Exam Vital Signs / I&Os Vital Signs Date Time Temp Pulse Resp B/P Pulse O2 O2 Flow FiO2 Ox Delivery Rate 06/19 1436 98.1 72 24 155/57 95 Nasal 2.0 Cannula 06/19 1421 2.0 06/19 1255 71 24 93 Nasal 3.0 Cannula 06/19 1104 98.1 74 20 141/66 94 Nasal 3.0 Cannula 06/19 0745 Nasal 2.0 Cannula 06/19 0735 2.0 06/19 0720 97.5 75 17 159/69 98 Nasal 3.0 Cannula 06/19 0515 97.5 70 24 128/66 95 Nasal 3.0 Cannula 06/19 0145 98.2 71 14 136/63 96 Nasal 3.0 Cannula 06/19 0011 3.0 06/18 2219 97.7 75 24 160/67 Nasal 1.5 Cannula 06/18 2107 84 23 140/66 99 Nasal 1.5 Cannula 06/18 2002 80 22 150/63 97 Nasal 1.5 Cannula 06/18 1956 1.5 06/18 195 1.5 06/18 1908 71 21 148/60 96 Nasal 1.5 Cannula 06/18 1800 98.1 73 20 141/102 98 Nasal 1.5 Cannula 06/18 1700 98.8 80 21 150/71 95 Nasal 1.5 Cannula 06/18 1630 80 26 141/56 96 Nasal 2.0 Cannula 06/18 1500 80 20 153/63 94 Nasal 2.0 Cannula I&O 06/19 0000 06/18 1600 06/18 0800 Intake Total 2673 1200 2795 Output Total 2075 1200 950 Balance 598 0 1845 General Appearance Alert, Oriented X3, Cooperative, No acute distress Lungs Mild bilateral expiratory wheezes. Scattered rhonchi. Cardiovascular Regular rate and rhythm, Normal S1 and S2 Abdomen Normal bowel sounds, Soft, No tenderness, Pendulous impairing evaluation Extremities No cyanosis, No clubbing Neurological Cranial nerves intact, Strength 5/5 x4 ext's, No lateralizing signs Psych/Mental Status Mental status normal, Mood normal LAB Results Laboratory Tests 06/18 1944 Chemistry Plasma Sodium (136 - 145 mmol/L) 141 Plasma Potassium (3.5 - 5.1 mmol/L) 4.5 Plasma Chloride (98 - 107 mmol/L) 109 CO2 (Enzymatic) (21 - 32 mmol/L) 24 BUN (7 - 18 mg/dL) 33 Creatinine (0.6 - 1.3 mg/dL) 1.1 Est GFR ( Amer) (mL/min) >60 Est GFR (Non-Af Amer) (mL/min) 54.81 Glucose (70 - 110 mg/dL) 163 Plasma Calcium (8.5 - 10.1 mg/dL) 9.0 Plasma Magnesium (1.8 - 2.4 mg/dL) 2.4 Assessment and Plan Problem List 1. COPD with exacerbation Plan -Patient shows slow improvement -Oral corticosteroids -Continue inhalation bronchodilators -Wean supplemental oxygen as appropriate -Persistent bronchospasm which has improved possible discharge in 1-2 days 2. Hyperglycemia due to type 2 diabetes mellitus Plan -Blood sugar improved but remains elevated -Patient weaned off IV insulin drip -Significant insulin resistance -We'll increase Lantus insulin to 120 units subcutaneous twice a day -Continue Humalog sliding scale -Monitor 3. Iron deficiency anemia Status Acute Onset Date Unknown Plan -Ferrous sulfate 325 mg by mouth twice a day -Monitor 4. Elevated liver function tests Status Acute Onset Date Unknown Plan -Resolved 5. Hypertension Status Chronic Onset Date Unknown Plan -Blood pressure remains mildly elevated. -BP this a.m. 159/69 -Low-salt diet -Increase lisinopril to 10 mg by mouth twice a day -Monitor Current status: Fair, improved Anticipated discharge date: Anticipated discharge 1-2 days Anticipated discharge placement: Home Patient care time: Time spent in chart review, patient interview, physical exam, CPOE, and care documentation: 25 minutes Visit to patient today: 1 Complexity of care: Moderate E&M Codes Rounding: Inpt-Moderate/[id number]
--- NOTE | 2016-06-19 17:15 | NUR ---
Patient has been alert and oriented throughout shift. Gave pain medication as ordered. No complaints of nausea or vomiting. Currently, patient is 91% on room air. Patient eating dinner and will ambulate with oxygen after dinner. Will continue to monitor patient.
--- NOTE | 2016-06-19 17:40 | NUR ---
Notified Dr. Lo of patient's blood sugars throughout the day, order done to increase long acting.
--- NOTE | 2016-06-19 18:40 | NUR ---
Patient ambulated again - On room air patient's O2 sats dropped to 82%. Patient maintaining 90% O2 sats on 5L O2 while ambulating. Will continue to monitor patient.
--- NOTE | 2016-06-20 00:54 | NUR ---
Pt A/Ox3, tele=SR 60-70 no ectopy, up to BR independently voiding large amounts clear yellow, good response to Lasix, wearing 2L n/c minimal exertional dyspnea, chooses not to wear while going to BR as "it gets in the way" but replaces once back in chair/bed, BG 300's requiring sliding scale doses of Humalog, to recheck at 0300. Rib/Back pain managed with Oxycodone. Using call light appropriately for safety/fall prevention.
[2016-06-20 02:16] VITALS: BP 109/78
--- NOTE | 2016-06-20 03:59 | NUR ---
Notified hospitalist regarding BG 300 range all shift. Pt stable, no new orders received.
[2016-06-20 07:20] VITALS: BP 118/55
--- NOTE | 2016-06-20 08:05 | Discharge Summary ---
Discharge Summary Report Admit Date 06/16/16 Discharge Date 06/20/16 Admission Diagnosis 1. Pneumonia 2. Diabetes mellitus-uncontrolled 3. Hypertension 4. Iron deficiency anemia 5. Exacerbation COPD 6. Elevated liver function tests Discharge Diagnosis 1. Exacerbation COPD 2. Diabetes mellitus-uncontrolled 3. Hypertension 4. Iron deficiency anemia 5. Elevated liver function tests Brief History The patient is a 54-year-old white female with a significant past medical history of hepatitis C, cirrhosis, hyperlipidemia, hypertension, hypothyroidism, type 2 diabetes mellitus insulin requiring, chronic pain, obesity, who presented to [facility] emergency room secondary to shortness of breath. [facility] ER evaluation was consistent with asthma/COPD exacerbation, hypoxemia, and pneumonia. Secondary to the above, the patient was admitted by Renan Lo M.D. for further evaluation and treatment. For other history present illness, past medical history, family history, social history, review of systems, and admission physical examination please see the patient's history and physical examination and ER visit note in the patient's medical record. Hospital Course The following problems and their management were noted during the patient's hospitalization: 1. Exacerbation COPD The patient was admitted with findings of COPD exacerbation. She underwent treatment with DuoNeb, albuterol, IV followed by by mouth corticosteroids. She required ongoing O2 supplementation. At time of discharge she was laced on DuoNeb, albuterol, prednisone taper and required 2 L/m nasal cannula O2. Her symptoms were significantly improved. She will follow-up with her PCP next week for reevaluation. 2. Diabetes mellitus-uncontrolled The patient has a history of type 2 diabetes mellitus insulin requiring. She is very insulin resistant. She required high-dose long-acting insulin form of Lantus 120 units subcutaneous twice a day and Humalog sliding scale. See discharge instructions for diabetic regimen. She'll persistent elevation of blood sugars in the 200 range. She'll undergo taper of her steroids which will hopefully improve her glucose control. She'll follow-up with her PCP next week for adjustments in medical therapy. 3. Hypertension The patient has a long-standing history of hypertension. Blood pressure adequately controlled at the time of discharge. Low-salt diet. See discharge instructions. 4. Iron deficiency anemia The patient has a history of iron deficiency anemia. Iron supplementation recommended on discharge. Follow-up with PCP. 5. Elevated liver function tests -The patient presented with mild elevation in LFTs. These resolved during the patient's hospitalization. Lab/Imaging Laboratory Tests 06/20 0625 Chemistry Plasma Sodium (136 - 145 mmol/L) 140 Plasma Potassium (3.5 - 5.1 mmol/L) 5.1 Plasma Chloride (98 - 107 mmol/L) 107 CO2 (Enzymatic) (21 - 32 mmol/L) 26 BUN (7 - 18 mg/dL) 29 Creatinine (0.6 - 1.3 mg/dL) 0.9 Est GFR ( Amer) (mL/min) >60 Est GFR (Non-Af Amer) (mL/min) >60 Glucose (70 - 110 mg/dL) 313 Plasma Calcium (8.5 - 10.1 mg/dL) 8.7 Hematology WBC (4.5 - 11.5 K/uL) 2.4 RBC (4.00 - 5.20 M/uL) 3.38 Hgb (12.0 - 16.0 gm/dL) 9.7 Hct (36.0 - 46.0 %) 29.4 MCV (80 - 100 fL) 87 MCH (26 - 34 pg) 29 RDW (11.6 - 14.8 %) 16.5 Neut % (Auto) (50 - 75 %) Pending Lymph % (Auto) (25 - 40 %) Pending [place] % (Auto) (3 - 14 %) Pending Band Neutrophils % (0 - 8 %) Pending Plt Count, EDTA (150 - 400 K/uL) 78 PUBS MCHC (31 - 37 g/dL) 33 Discharge Instructions/Meds For other recommendations regarding discharge diet, activity, followup, and discharge medications please see the patient's discharge instructions. Discharge condition: Fair, improved Greater than 30 min. was spent in the patient's discharge preparation including discharge interview and physical examination, progress note, discharge instructions, and discharge summary The patient was interviewed and examined on the day of discharge. E&M Codes Discharge: Inpt >30 min spent/[id number]
--- NOTE | 2016-06-20 09:51 | DIAGNOSTIC IMAGING REPORT ---
PROCEDURE: XR CHEST 1 VIEW INDICATION: CHF, COPD TECHNIQUE: Portable AP view 09:20 a.m. COMPARISON: Chest x-ray and CT chest 06/15/2016 FINDINGS: Small right upper lobe infiltrate, similar to CT chest finding.. Left lung is clear. Heart and mediastinum are normal. Thorax is normal. IMPRESSION: 1. Small right upper lobe infiltrate suggestive of pneumonia. 2. Results discussed with Dr. Lo.
[2016-06-20 11:03] VITALS: BP 129/69
[2016-06-20] MEDS ORDERED: LEVAQUIN500 MG PO (11:26)
[2016-06-20] MEDS ORDERED: PREDNISONE20 MG PO (11:26)
[2016-06-20] MEDS ORDERED: COMBIVENT RESPIMAT IN (11:27)
[2016-06-20] MEDS ORDERED: O2 IN (11:29)
--- NOTE | 2016-06-20 11:30 | Provider's Discharge Care Plan ---
Problem, Goal, Plan Problem List 1. COPD with exacerbation Goals: Improve disease control, Prevent disease progress Instructions: Follow up as directed, Take meds as directed 2. Hyperglycemia due to type 2 diabetes mellitus Goals: Improve disease control, Improve function, Prevent disease progress Instructions: Follow up as directed, Take meds as directed 3. Pneumonia Goals: Improve disease control, Prevent disease progress Instructions: Follow up as directed, Take meds as directed
--- NOTE | 2016-06-20 12:00 | NUR ---
O2 TURNED OFF AND PT IS AT REST, HER SAO2 HAS BEEN LOW 87% AT REST.
--- NOTE | 2016-06-20 13:07 | NUR ---
DISCHARGE INSTRUCTIONS REVIEWED WITH PT AND HER , AND QUESTIONS ANSWERED. RXs GIVEN TO PT, AND PT DISCHARGE [place] WITH WITH O2.
== END 2016-06-20 13:15 | disposition home or self-care (01) | DRG 191 ==
LOC: ED SRH 21:47 → TRANS SRH 06-16 02:14 → CC SRH 06-16 02:14 → TRANS SRH 06-16 02:14 → ACUTE2 SRH 06-16 03:40 → CC SRH 06-17 14:11
PROVIDERS: ADMIT Internal Medicine
DX: J44.1 Chronic obstructive pulmonary disease with (acute) exacerbation (principal); R09.02 Hypoxemia; E11.65 Type 2 diabetes mellitus with hyperglycemia; E66.9 Obesity, unspecified; Z68.43 Body mass index [BMI] 50.0-59.9, adult; I12.9 Hypertensive chronic kidney disease with stage 1 through stage 4 chronic kidney disease, or unspecified chronic kidney disease; E11.22 Type 2 diabetes mellitus with diabetic chronic kidney disease; N18.9 Chronic kidney disease, unspecified; B18.2 Chronic viral hepatitis C; K74.69 Other cirrhosis of liver; E78.5 Hyperlipidemia, unspecified; E03.9 Hypothyroidism, unspecified; Z79.4 Long term (current) use of insulin; D50.9 Iron deficiency anemia, unspecified
CPT/HCPCS: 85241; 85244; 90004; 90047; 90065; 90074; 90098; 90100; 90616; 91286; 91295; 91320; 91504; 91505; 91556; 92031; 92610; 92652; 92668; 92670; 92720; 93004; 95059; 95061

== ENCOUNTER 2016-07-28 09:56 | Inpatient (IN) | payer OTHER ==
[2016-07-28] VITALS (10 sets, daily range): BP systolic 84–117; BP diastolic 35–63
[~2016-07-28] VITALS: Ht 160 cm; Wt 162.9 kg
[~2016-07-28 09:56] MED LIST changes: +COMBIVENT RESPIMAT IN; +JARDIANCE25 MG PO; +LEVAQUIN500 MG PO; +O2 IN; +PHENERGAN12.5 M1 PR
--- NOTE | 2016-07-28 11:42 | DIAGNOSTIC IMAGING REPORT ---
PROCEDURE: XR CHEST 1 VIEW INDICATION: Hypotension. Back pain. TECHNIQUE: Portable AP view (1115 hours). COMPARISON: Compared to chest x-ray on 06/20/2016 and CTA thorax (06/15/2016). FINDINGS: Allowing for rotation and overlying wires and electrodes, lungs are clear. Mild cardiomegaly. Mediastinum is normal. Thorax is normal. IMPRESSION: 1. Mild cardiomegaly. 2. Otherwise negative chest. 3. Findings discussed with Dr. Neptali Rangel.
--- NOTE | 2016-07-28 12:20 | ED CLINICAL REPORT ---
Clinical Report - Physicians/Mid Levels [facility] [address] [place] [address] 07/28/2016 9:56 [id number] Time Seen: 10:27. Arrived- By private vehicle. Historian- patient. HISTORY OF PRESENT ILLNESS Chief Complaint: BACK PAIN. At its maximum, severity described as severe. When seen in the E.D., severity described as severe. This started today and is still present. It was abrupt in onset and has been constant and waxing/waning. The patient has had weakness. (The patient presents with several days of right-sided low back pain. She says that this is different than her typical chronic back pain.). Similar symptoms previously: None. REVIEW OF SYSTEMS No chills, fever, sweats, calf pain or chest pain. No cough, difficulty breathing, pedal edema, abdominal pain or constipation. No diarrhea, nausea or vomiting. She has had fatigue. All systems otherwise negative, except as recorded above. PAST HISTORY Problems: Lung Disease. Heart Disease. Abnormal Liver Function Test. Lifestyle / Substance Problems. Gout. Chest Pain. Hyperglycemia. UTI - Urinary Tract Infection. Renal Insufficiency. Lower Extremity Pain. Arthritis. Back Pain. Chronic Back Pain. Intervertebral Disc Disease. Lumbar Radiculopathy. Degenerative Joint Disease. Pedal Edema. Rt groin pain . COPD - Chronic Obstructive Pulmonary Disease. Gastritis. Dehydration. Contusion. Fall. Sprain. Biliary Colic. Cholelithiasis. Vomiting. Hypomagnesemia. Abdominal Pain. Flank Pain. Cardiovascular Risk Factors. Cirrhosis. Lumbar Strain. Kidney failure. GI Bleeding. Abnormal Test. Hepatitis C. Hypertension. Otitis Media. Obesity. Hepatitis. Bipolar Disorder. Thyroid Disease. Chest Wall Pain. Pharyngitis. Hypothyroidism. Neck Pain. Cervical Strain. Pneumonia. Diabetes Mellitus. Additional Surgeries: Appendectomy. . Endoscopy. Hysterectomy. Liver biopsy. Shoulder Surgery. TIPs in liver. Tonsillectomy. Tympanostomy Tubes. Medications: Jardiance Oral (Tablet 10 mg) 2 tablets, day. Levemir Subcutaneous 150 Units in AM+ 150 units in PM (does not take the same dosing). Levothyroxine Sodium Oral 137 mcg, daily. Lisinopril Oral 5 mg, daily. Lovastatin Oral (Tablet 40 mg) 1 tablet, at bedtime. NovoLOG Subcutaneous per Sliding Scale, before meals. OxyCODONE HCl Oral 5 mg (5 times a day). Phenergan (Promethazine) Oral, as needed. Phenergan (Promethazine) Rectal, as needed. QUEtiapine Fumarate Oral 200 mg, daily. Tanzeum Subcutaneous (Pen-injector 30 mg), once a week. Xifaxan Oral (Tablet 550 mg) 1 tablet, 2xdaily. Zofran Oral 4 mg, PRN. Allergies: Adhesive. (blister) Aspirin. (stomach pain and nausea) Latex. (blister) Vicodin.(vomiting). SOCIAL HISTORY Former smoker, end date 2006. No alcohol use or drug use. She lives with spouse. Has good social support. FAMILY HISTORY Denies family medical history. ADDITIONAL NOTES The nursing notes have been reviewed. PHYSICAL EXAM Vital Signs: 07/28/2016 10:05 BP: 77/44. HR: 72. RR: 18. O2 saturation: 94%. Pain level now: 10. Have been reviewed. Appearance: Alert. Eyes: Pupils equal, round and reactive to light. ENT: Pharynx normal. Neck: Normal inspection. Neck supple. CVS: Normal heart rate and rhythm. Heart sounds normal. Respiratory: No respiratory distress. Breath sounds normal. Abdomen: No visible injury. Soft and nontender. Bowel sounds normal. No organomegaly. No mass. Obese. Back: Normal inspection. No CVA tenderness. Skin: Skin warm and dry. Normal skin color. Normal skin turgor. Extremities: Extremities exhibit normal ROM. No calf tenderness. No lower extremity edema. LABS, X-RAYS, AND EKG EKG: Rate: 83. Prolonged QT (414 ms). Prolonged QTc (486 ms). Changes present when compared to prior EKG. (15 June 2016). Chest X-ray: (IMPRESSION: 1. Mild cardiomegaly. 2. Otherwise negative chest.). The X-rays were interpreted by the radiologist and contemporaneously by me. Laboratory Tests: UA-Culture if indicated: (MANISHA: 07/28/2016 14:00) ( MsgRcvd 07/28/2016 14:34) Final results Test Result Flag Units (Reference) URINE COLOR YELLOW URINE APPEARANCE SL CLOUDY URINE GLUCOSE 2+ (NEGATIVE) URINE BILIRUBIN NEGATIVE (NEGATIVE) URINE KETONE 1+ (NEGATIVE) URINE SPECIFIC GRAVITY >= 1.030 (1.010-1.030) URINE PH 5.5 (5.0-8.0) URINE PROTEIN TRACE (NEGATIVE) URINE UROBILINOGEN 0.2 EU/dL (0.2-1.0) URINE NITRITE NEGATIVE (NEGATIVE) URINE BLOOD NEGATIVE (NEGATIVE) URINE LEUK ESTERASE NEGATIVE (NEGATIVE) URINE RBC NONE SEEN rbc/hpf (0-1) URINE WBC 5-10 wbc/hpf (0-1) URINE EPITHELIAL CELLS 3-5 EPI/hpf (0-5) URINE BACTERIA MODERATE (2+ TO 3+) (NONE SEEN) URINE COMMENT CULTURE INDICATED 1+ SULFA CRYSTALSURINE CULTURES ARE SET-UP BASED ON THE FOLLOWING CRITERIA:POSITIVE NITRITEPOSITIVE LEUKOCYTE ESTERASEGREATER THAN 10 WHITE BLOOD CELLSMODERATE (2+) OR GREATER BACTERIA CBC w Diff: (MANISHA: 07/28/2016 10:35) ( MsgRcvd 07/28/2016 10:47) Final results Test Result Flag Units (Reference) WHITE BLOOD COUNT 5.4 K/uL (4.5-11.5) RED BLOOD COUNT 3.80 L M/uL (4.00-5.20) HEMOGLOBIN 11.1 L gm/dL (12.0-16.0) HEMATOCRIT 33.2 L % (36.0-46.0) MEAN CELL VOLUME 87 fL (80-100) MEAN CORPUSCULAR HGB 29 pg (26-34) MEAN CORPUSCULAR HGB CONC 33 g/dL (31-37) RED CELL DISTRIBUTION WIDTH 17.2 H % (11.6-14.8) PLATELET COUNT 54 L K/uL (150-400) NEUTROPHIL % 67.3 % (50-75) LYMPH % 19.0 L % (25-40) MONO % 8.0 % (3-14) EOSINOPHIL % 5.2 H % (0-4) BASOPHIL % 0.5 % (0-2) PT with INR: (MANISHA: 07/28/2016 10:35) ( [facility] 07/28/2016 10:52) Final results Test Result Flag Units (Reference) INR 1.2 (0.8-1.2) Low Intensity Therapy: INR 1.5-2.0 PT range 18.5-23.1Mod.Intensity Therapy: INR 2.0-3.0 PT range 23.1-31.5High Intensity Therapy: INR 2.5-3.5 PT range 27.4-35.5High Intensity Therapy 2: INR 3.0-4.0 PT range 31.5-39.3 APTT 35 H SECONDS (24-34) Lactate, Serum: (MANISHA: 07/28/2016 13:49) ( [facility] 07/28/2016 14:23) Final results Test Result Flag Units (Reference) LACTIC ACID 1.0 mmol/L (0.4-2.0) BMP: (MANISHA: 07/28/2016 14:18) ( [facility] 07/28/2016 14:37) Final results Test Result Flag Units (Reference) GLUCOSE 102 mg/dL (70-110) BUN 43 H mg/dL (7-18) CREATININE 3.4 H mg/dL (0.6-1.3) Estimated GFR 14.85 mL/min Estimated GFR- 18.00 mL/min Note: Persistent reduction over 3 months in eGFR<60 mL/min/1.73 m2 defines CKD. Patients with eGFR values>=60 mL/min/1.73 m2 may also have CKD if evidence ofpersistent proteinuria. Additional information may be foundat www.[email or web address]. SODIUM 135 L mmol/L (136-145) POTASSIUM 4.1 mmol/L (3.5-5.1) CHLORIDE 104 mmol/L (98-107) CARBON DIOXIDE 21 mmol/L (21-32) CALCIUM 7.8 L mg/dL (8.5-10.1) BNP: (MANISHA: 07/28/2016 10:20) ( [facility] 07/28/2016 12:05) Final results Test Result Flag Units (Reference) B-TYPE NATRIURETIC PEPTIDE < 5.0 L pg/ml (5-100) CMP: (MANISHA: 07/28/2016 10:35) ( MsgRcvd 07/28/2016 11:15) Final results Test Result Flag Units (Reference) GLUCOSE 189 H mg/dL (70-110) BUN 45 H mg/dL (7-18) CREATININE 3.8 H mg/dL (0.6-1.3) Estimated GFR 13.06 mL/min Estimated GFR- 15.83 mL/min Note: Persistent reduction over 3 months in eGFR<60 mL/min/1.73 m2 defines CKD. Patients with eGFR values>=60 mL/min/1.73 m2 may also have CKD if evidence ofpersistent proteinuria. Additional information may be foundat www.[email or web address]. SODIUM 134 L mmol/L (136-145) POTASSIUM 3.8 mmol/L (3.5-5.1) CHLORIDE 101 mmol/L (98-107) CARBON DIOXIDE 21 mmol/L (21-32) CALCIUM 8.3 L mg/dL (8.5-10.1) TOTAL PROTEIN 6.5 g/dL (6.4-8.2) ALBUMIN 3.1 L g/dL (3.3-5.0) BILIRUBIN, TOTAL 0.6 mg/dL (0.0-1.0) ALKALINE PHOSPHATASE 109 U/L (46-116) AST (SGOT) 27 U/L (15-37) ALT (SGPT) 36 U/L (12-78) LIPASE 110 U/L (73-393) AMYLASE 31 U/L (25-115) CPK 141 U/L (24-260) TROPONIN I <0.05 L ng/mL (0.00-1.5) TROPONIN REFERENCE RANGE:<0.1 NEGATIVE0.1-1.5 INDETERMINANT>1.5 POSITIVE THYROID STIMULATING HORMONE 3.475 uIU/mL (0.30-3.74) . Note - Tests: ( Exam(s): CT THORAX ABD PELVIS W/O CONT Date of Exam: 07/28/2016 __ PROCEDURE: CT THORAX ABD PELVIS W/O CONT CLINICAL INDICATION: Back pain. Hypotension. Renal failure (GFR 13.06). History of appendectomy and TIPS procedure. TECHNIQUE: Noncontrast axial images with sagittal and coronal reformations. COMPARISON: Comparison made to chest x-ray (07/28/2016, CT thorax (06/15/2016), and CT pelvis (02/25/2016. FINDINGS: THORAX: Lungs are clear. Heart mediastinum are of normal size. Coronary vascular calcifications. Mild degenerative change of the thoracic spine. ABDOMEN: Multiple small layering gallstones (previously documented). Cirrhosis of the liver with evidence of prior TIPS stent. Moderate splenomegaly (19 cm, no change). Pancreas, and kidneys are normal. Mild calcified atheromatous changes of the abdominal aorta. Bowel pattern is normal. PELVIS: Status post hysterectomy. Right ovary is mildly to moderately enlarged (5.4 cm). Left ovary is normal (2.5 cm). No evidence of free fluid. IMPRESSION: 1. Coronary vascular calcifications. 2. Otherwise negative CT thorax. 3. Cholelithiasis (previously documented). 4. Cirrhosis of the liver with prior TIPS stent (no change). 5. Chronic splenomegaly (19 cm). 6. Status post hysterectomy. 7. Mild to moderate enlargement of the right ovary (5.4 cm). Consider hemorrhagic cyst or ovarian mass. No evidence of free fluid. Follow-up pelvic ultrasound after the patient's acute illness (3-4 weeks) is recommended to confirm resolution. 8. Otherwise negative CT abdomen and pelvis.). PROGRESS AND PROCEDURES Discussed case with hospitalist, (Migel Wheeler). Reviewed test results and need for additional work-up. Agreed upon treatment plan and decision to admit. Refers case to other health care provider. Patient/family counseled. Old medical records reviewed. Disposition orders written (in [facility]). Disposition: Admitted to the Critical Care Unit. CLINICAL IMPRESSION Hypotension. Acute renal insufficiency. Back pain. (R ovarian mass). INSTRUCTIONS (Mild to moderate enlargement of the right ovary (5.4 cm). Consider hemorrhagic cyst or ovarian mass. No evidence of free fluid. Follow-up pelvic ultrasound after the acute illness (3-4 weeks) is recommended to confirm resolution.). (Electronically signed by Neptali Rangel MD 07/31/2016 1:35)
--- NOTE | 2016-07-28 12:20 | ED ORDER SUMMARY ---
..... Patient: VANIA AGUILA OrderSheet Located Within [facility] VisitID: [id number] [address] [place] [address] 56y, F Registration Date/Time: 07/28/2016 ORDER SHEET Weight: 149.2 kg (stated) Allergies: Adhesive, Aspirin, Latex, Vicodin GENERAL ORDERS: Chest 1V Urgent (10:07/28/2016 Yesy WEBB) (Ack 10:31 LNations ER Tech1) (10:53 LWhalen R.N.) Sail Cutter (Continuous) (10:07/28/2016 Yesy WEBB) (Ack 10:30 LNations ER Tech1) (10:51 PWeiler ER Tech1) CBC w Diff Urgent (10:07/28/2016 Yesy WEBB) (Ack 10:30 LNations ER Tech1) (10:53 LWhalen R.N.) CMP Urgent (10:07/28/2016 Yesy WEBB) (Ack 10:31 LNations ER Tech1) (10:53 LWhalen R.N.) UA-Culture if indicated Urgent (10:07/28/2016 Yesy WEBB) (Ack 10:31 LNations ER Tech1) (14:19 LWhalen R.N.) Amylase Urgent (10:07/28/2016 Yesy WEBB) (Ack 10:31 LNations ER Tech1) (10:53 LWhalen R.N.) Lipase Urgent (10:07/28/2016 Yesy WEBB) (Ack 10:31 LNations ER Tech1) (10:53 LWhalen R.N.) CPK Urgent (10:07/28/2016 Yesy WEBB) (Ack 10:31 LNations ER Tech1) (10:53 LWhalen R.N.) Troponin-I Urgent (10:07/28/2016 Yesy WEBB) (Ack 10:31 LNations ER Tech1) (10:53 LWhalen R.N.) PT with INR Urgent (10:07/28/2016 Yesy WEBB) (Ack 10:31 LNations ER Tech1) (10:53 LWhalen R.N.) PTT Urgent (10:07/28/2016 Yesy WEBB) (Ack 10:31 LNations ER Tech1) (10:53 LWhalen R.N.) Oxygen (2 L/min) (NC) (10:07/28/2016 Yesy WEBB) (Ack 10:30 LNations ER Tech1) (10:51 PWeiler ER Tech1) Pulse oximeter (10:07/28/2016 Yesy WEBB) (Ack 10:30 LNations ER Tech1) (10:51 PWeiler ER Tech1) EKG - ER Stat (10:07/28/2016 Yesy WEBB) (10:30 PWeiler ER Tech1) (Ack 10:30 LNations ER Tech1) TSH Urgent (10:07/28/2016 Yesy WEBB) (Ack 10:34 LNations ER Tech1) (10:53 LWhalen R.N.) BNP Urgent (11:32 07/28/2016 Yesy WEBB) (Ack 11:34 LNations ER Tech1) (13:06 LNations ER Tech1) CT Thorax/Abd/Pelvis wo Cont Urgent (12:26 07/28/2016 Yesy WEBB) (Ack 12:30 LNations ER Tech1) (12:46 LNations ER Tech1) BMP (draw after 3 L IVF) Urgent (12:28 07/28/2016 Yesy WEBB) (Ack 12:30 LNations ER Tech1) (14:19 LWhalen R.N.) POC Glucose (13:07 07/28/2016 LNations ER Tech1 verbal order read back to Yesy WEBB) (13:08 LNations ER Tech1) Lactate, Serum Urgent (13:34 07/28/2016 Yesy WEBB) (Ack 13:36 LNations ER Tech1) (14:19 LWhalen R.N.) MEDICATION ORDERS: IV FLUIDS: IV NS : initial bolus 1000 mL (1000 mL/hr), then 200 mL/hr for 4h (NOW); Urgent (10:28 07/28/2016 Yesy WEBB) (10:53 LWhalen R.N.) (Cancelled: Other12:25 Yesy WEBB) IV NS : initial bolus 1000 mL (1000 mL/hr), then 1000 mL/hr for X3 (NOW); Urgent (12:25 07/28/2016 Yesy WEBB) (Ack 12:29 Jluis SelfNFlorencia) (13:23 Tang Joy) ORDER SHEET NOTES: [Electronically signed by Karthik Edwards R.N. (08:07/29/2016)] [Electronically signed by Neptali Rangel MD (01:35 07/31/2016)] [Electronically locked/signed by Karthik Edwards R.N. (:07/29/2016)]
--- NOTE | 2016-07-28 12:20 | ED ORDER SUMMARY ---
..... Patient: VANIA AGUILA OrderSheet [facility] VisitID: [id number] [address] [place] [address] 56y, F Registration Date/Time: 07/28/2016 ORDER SHEET Weight: 149.2 kg (stated) Allergies: Adhesive, Aspirin, Latex, Vicodin GENERAL ORDERS: Chest 1V Urgent (10:07/28/2016 Yesy WEBB) (Ack 10:31 LNations ER Tech1) (10:53 LWhalen R.N.) Computer Aided Design Technician (Continuous) (10:07/28/2016 Yesy WEBB) (Ack 10:30 LNations ER Tech1) (10:51 PWeiler ER Tech1) CBC w Diff Urgent (10:07/28/2016 Yesy WEBB) (Ack 10:30 LNations ER Tech1) (10:53 LWhalen R.N.) CMP Urgent (10:07/28/2016 Yesy WEBB) (Ack 10:31 LNations ER Tech1) (10:53 LWhalen R.N.) UA-Culture if indicated Urgent (10:07/28/2016 Yesy WEBB) (Ack 10:31 LNations ER Tech1) (14:19 LWhalen R.N.) Amylase Urgent (10:07/28/2016 Yesy WEBB) (Ack 10:31 LNations ER Tech1) (10:53 LWhalen R.N.) Lipase Urgent (10:07/28/2016 Yesy WEBB) (Ack 10:31 LNations ER Tech1) (10:53 LWhalen R.N.) CPK Urgent (10:07/28/2016 Yesy WEBB) (Ack 10:31 LNations ER Tech1) (10:53 LWhalen R.N.) Troponin-I Urgent (10:07/28/2016 Yesy WEBB) (Ack 10:31 LNations ER Tech1) (10:53 LWhalen R.N.) PT with INR Urgent (10:07/28/2016 Yesy WEBB) (Ack 10:31 LNations ER Tech1) (10:53 LWhalen R.N.) PTT Urgent (10:07/28/2016 Yesy WEBB) (Ack 10:31 LNations ER Tech1) (10:53 LWhalen R.N.) Oxygen (2 L/min) (NC) (10:07/28/2016 Yesy WEBB) (Ack 10:30 LNations ER Tech1) (10:51 PWeiler ER Tech1) Pulse oximeter (10:07/28/2016 Yesy WEBB) (Ack 10:30 LNations ER Tech1) (10:51 PWeiler ER Tech1) EKG - ER Stat (10:07/28/2016 Yesy WEBB) (10:30 PWeiler ER Tech1) (Ack 10:30 LNations ER Tech1) TSH Urgent (10:07/28/2016 Yesy WEBB) (Ack 10:34 LNations ER Tech1) (10:53 LWhalen R.N.) BNP Urgent (11:32 07/28/2016 Yesy WEBB) (Ack 11:34 LNations ER Tech1) (13:06 LNations ER Tech1) CT Thorax/Abd/Pelvis wo Cont Urgent (12:26 07/28/2016 Yesy WEBB) (Ack 12:30 LNations ER Tech1) (12:46 LNations ER Tech1) BMP (draw after 3 L IVF) Urgent (12:28 07/28/2016 Yesy WEBB) (Ack 12:30 LNations ER Tech1) (14:19 LWhalen R.N.) POC Glucose (13:07 07/28/2016 LNations ER Tech1 verbal order read back to Yesy WEBB) (13:08 LNations ER Tech1) Lactate, Serum Urgent (13:34 07/28/2016 Yesy WEBB) (Ack 13:36 LNations ER Tech1) (14:19 LWhalen R.N.) MEDICATION ORDERS: IV FLUIDS: IV NS : initial bolus 1000 mL (1000 mL/hr), then 200 mL/hr for 4h (NOW); Urgent (10:28 07/28/2016 Yesy WEBB) (10:53 LWhalen R.N.) (Cancelled: Other12:25 Yesy WEBB) IV NS : initial bolus 1000 mL (1000 mL/hr), then 1000 mL/hr for X3 (NOW); Urgent (12:25 07/28/2016 Yesy WEBB) (Ack 12:29 Jluis SelfNFlorencia) (13:23 Tang Joy) ORDER SHEET NOTES: [Electronically signed by Karthik Edwards R.N. (08:07/29/2016)] [Electronically signed by Neptali Rangel MD (01:35 07/31/2016)] [Electronically locked/signed by Karthik Edwards R.N. (:07/29/2016)]
--- NOTE | 2016-07-28 12:20 | ED NURSING NOTES ---
Clinical Report - Nurses [facility] [address] [place] [address] 07/28/2016 9:56 [id number] TRI[facility] Triage time 10:Jul 28 2016. Acuity: LEVEL 3. Chief Complaint: BACK PAIN. WAQAS COMA SCORE: Waqas Coma Scale: 15- eyes open spontaneously (4); best verbal response- oriented x 4 (5); best motor response- obeys commands (6). --10:16 Karthik Edwards R.N. 10:07/28/16. BP: 73/47 (large adult cuff) taken on the right arm, while sitting. HR: 87. RR: 20. O2 saturation: 96%. Temp: 97.7 F. Pain level now 10/10. Additional comments: Donr on upper arm for comparison . --10:16 Karthik Edwards R.N. <<STRICKEN ENTRY-- 10:07/28/16. BP: 73/47. HR: 87. RR: 20. O2 saturation: 96%. Temp: 97.7 F. Pain level now 10/10. --10:16 Karthik Edwards R.N. --END STRIKE>> Change to Details. --10:59 Karthik Edwards R.N. Weight: 149.2 kg stated. Height/Length: 64 inches Per Patient. BMI: 56.5. --10:12 Karthik Edwards R.N. Medications Jardiance Oral (Tablet 10 mg) 2 tablets, day. Levemir Subcutaneous 150 Units in AM+ 150 units in PM (does not take the same dosing). Levothyroxine Sodium Oral 137 mcg, daily. Lisinopril Oral 5 mg, daily. Lovastatin Oral (Tablet 40 mg) 1 tablet, at bedtime. NovoLOG Subcutaneous per Sliding Scale, before meals. OxyCODONE HCl Oral 5 mg (5 times a day). Phenergan (Promethazine) Oral, as needed. Phenergan (Promethazine) Rectal, as needed. QUEtiapine Fumarate Oral 200 mg, daily. Tanzeum Subcutaneous (Pen-injector 30 mg), once a week. Xifaxan Oral (Tablet 550 mg) 1 tablet, 2xdaily. Zofran Oral 4 mg, PRN. --10:10 Karthik Edwards R.N. Allergies Adhesive. (blister) Aspirin. (stomach pain and nausea) Latex. (blister) Vicodin.(vomiting) --10:10 Karthik Edwards R.N. History Arrived by private vehicle. Historian: patient. Accompanied by family. Onset. (3 days ago). She has had trouble walking. No history of recent trauma. No numbness, weakness, tingling, fever or extremity pain. Treatment INVESTIGATOR NARCOTICS: None. PAST MEDICAL HX: Diabetes mellitus. Hypertension. Heart disease. Lung disease. Tetanus status: up-to-date. Immunizations: up-to-date. SOCIAL HX: Former smoker, end date 2006. No alcohol use or drug use. SELF HARM ASSESSMENT: A self harm assessment was performed. The patient answered "no" to the question "Have you recently felt down, depressed, or hopeless?" and "Do you have thoughts of harming or killing yourself?". FALL RISK ASSESSMENT: Fall risk assessment completed. No fall risk identified. NUTRITIONAL RISK ASSESSMENT: The nutritional risk assessment revealed no deficiencies. FUNCTIONAL ASSESSMENT: Functional assessment: no impairments noted. LEARNING NEEDS ASSESSMENT: The learning needs assessment revealed no barriers. ABUSE ASSESSMENT: Abuse assessment: (yes) The patient was asked "Do you feel safe in your home?". SKIN INTEGRITY ASSESSMENT: Skin integrity risk assessment completed. No skin integrity risk identified. --10:16 Karthik Edwards R.N. PROBLEMS: Abnormal Liver Function Test. Lifestyle / Substance Problems. Gout. Chest Pain. Hyperglycemia. UTI - Urinary Tract Infection. Renal Insufficiency. Lower Extremity Pain. Arthritis. Back Pain. Chronic Back Pain. Intervertebral Disc Disease. Lumbar Radiculopathy. Degenerative Joint Disease. Pedal Edema. Rt groin pain . COPD - Chronic Obstructive Pulmonary Disease. Gastritis. Dehydration. Contusion. Fall. Sprain. Biliary Colic. Cholelithiasis. Vomiting. Hypomagnesemia. Abdominal Pain. Flank Pain. Cardiovascular Risk Factors. Cirrhosis. Lumbar Strain. Kidney failure. GI Bleeding. Abnormal Test. Rectal Bleed. LNMP - Last Normal Menstrual Period. Hepatitis C. Hypertension. Otitis Media. Obesity. Hepatitis. Bipolar Disorder. Thyroid Disease. Chest Wall Pain. Pharyngitis. Hypothyroidism. Neck Pain. Cervical Strain. Immunizations. Pneumonia. Diabetes Mellitus. --10:11 Karthik Edwards R.N. ADDITIONAL SURGERIES: Appendectomy. . Endoscopy. Hysterectomy. Liver biopsy. Shoulder Surgery. TIPs in liver. Tonsillectomy. Tympanostomy Tubes. --10:11 Karthik Edwards R.N. Interventions ID and allergy band on patient. --10:16 Karthik Edwards R.N. PHYSICAL ASSESSMENT To room via wheelchair. GENERAL / NEURO / PSYCH: Alert. Oriented X 4. Appears in pain and in distress. RESPIRATORY: Mild respiratory distress. ( SOB with exertion pt sometimes on home O2.). CVS: Normal heart rate and rhythm. Capillary refill less than 2 seconds. GI / : Abdomen soft and nontender. Bowel sounds within normal limits. ( yesterday normal BM). EXTREMITIES: Sensation intact in extremities. ROM of extremities within normal limits. BACK: Limited ROM of the back. Soft tissue tenderness. --10:55 Karthik Edwards R.N. NURSING PROGRESS NOTES EKG time: (1025). EKG was ordered, performed by a tech and shown to the ED physician. --10:27 Casey López ER Tech1 10:38 07/28/2016 Site #1 started via IV in the left antecubital space with an 20g angiocath, with aseptic technique and good blood return; one attempt. Blood drawn: rainbow set. Labeled in the presence of the patient and sent to the lab. Saline lock flushed with 10 mL saline. --10:53 Karthik Edwards R.N. 10:43 07/28/2016 Started bag #1 1000 mL IV Fluids IV NS (Saline); at 1000 mL/hr over 1 hour(s) via site #1 via IV pump. Allergies verified and confirmed 5 rights. IV patency established. IV site checked: no pain, redness, or swelling. IV flushed thoroughly pre- and post-medication administration. --10:53 Karthik Edwards R.N. 10:55 07/28/16. BP: 84/38. HR: 79. RR: 18. O2 saturation: 96% at 2 liters/minute. --10:56 Karthik Edwards R.N. 10:55 07/28/16. BP: 84/38. HR: 79. RR: 18. O2 saturation: 96% at 2 liters/minute. 10:45 07/28/16. BP: 84/32. HR: 80. RR: 12. O2 saturation: 98% on nasal cannula at 2 liters/minute. 10:35 07/28/16. BP: 84/32. HR: 79. RR: 12. O2 saturation: 98%. 10:07/28/16. BP: 91/39. HR: 81. RR: 16. O2 saturation: 97% on nasal cannula at 2 liters/minute. Additional comments: right colette . 10:07/28/16. BP: 73/47 (large adult cuff) taken on the right arm. HR: 76. RR: 18. O2 saturation: 97% on nasal cannula at 2 liters/minute. Additional comments: forarm . 10:07/28/16. BP: 87/46 (large adult cuff) taken on the left arm. HR: 80. RR: 20. O2 saturation: 94%. Additional comments: upper arm . 10:07/28/16. BP: 73/47 (large adult cuff) taken on the right arm, while sitting. HR: 87. RR: 20. O2 saturation: 96%. Temp: 97.7 F. Pain level now 12/09. Additional comments: Donr on upper arm for comparison . 10:07/28/16. BP: 77/44 (regular adult cuff) taken on the left arm, while sitting. HR: 72. RR: 18. O2 saturation: 94%. Pain level now: 12/09. Additional comments: forarm per pt request. . --11:03 Karthik Edwards R.N. 11:07/28/16. BP: 89/36. HR: 76. RR: 20. O2 saturation: 96%. --11:04 Karthik Edwards R.N. ( Patient moved to room 2 for closer monitoring.). --11:04 Karthik Edwards R.N. ( H/p forms on chart.). --11:40 Tavia Webber, ER Tech1 12:07/28/2016 IV Fluids IV NS Discontinued: bag #1 infused. Total amount infused: 1000 mL. IV patency established. IV site checked: no pain, redness, or swelling. IV flushed thoroughly. --12:23 Karthik Edwards R.N. 12:07/28/2016 Started bag #1 1000 mL IV Fluids IV NS (Saline); at 999 mL/hr over 1 hour(s) via site #1 via IV pump. Allergies verified and confirmed 5 rights. IV patency established. IV site checked: no pain, redness, or swelling. IV flushed thoroughly pre- and post-medication administration. --12:25 Karthik Edwards R.N. Finger stick glucose: 149; ordered; performed by tech; result shown to the RN. --12:59 Casey López, ER Tech1 13:07/28/2016 Started bag #3 1000 mL IV Fluids IV NS (Saline); at 1000 mL/hr over 1 hour(s) via site #1 via IV pump. --13:23 Faviola Balderrama R.N. 13:07/28/2016 IV Fluids IV NS Discontinued: bag #2 infused. Total amount infused: 1000 mL. --13:23 Faviola Balderrama R.N. 13:24 07/28/16. Cardiac rhythm: sinus rhythm. The patient is resting quietly. Overall patient status is the same- she states feels the same. GENERAL / NEURO / PSYCH: Alert. RESPIRATORY: No respiratory distress. SKIN: Skin is warm and dry. --13:24 Faviola Balderrama R.N. 13:07/28/16. BP: 70/54. HR: 73. RR: 17. O2 saturation: 91% on room air. --13:24 Faviola Balderrama R.N. 13:07/28/16. BP: 79/35. HR: 77. RR: 15. O2 saturation: 96%. 13:07/28/16. BP: 70/54. HR: 73. RR: 17. O2 saturation: 91% on room air. 13:00 05/29/17. BP: 64/42. HR: 78. RR: 15. O2 saturation: 96%. 12:30 07/28/16. BP: 82/31. HR: 77. RR: 15. O2 saturation: 98%. 12:00 07/28/16. BP: 80/41. HR: 78. RR: 13. O2 saturation: 96%. Temp: 98.4 F. Pain level now: 12/09. 11:45 07/28/16. BP: 94/82. HR: 81. RR: 18. O2 saturation: 97%. 11:30 07/28/16. BP: 87/55. HR: 77. RR: 12. O2 saturation: 95%. 11:15 07/28/16. BP: 75/45. HR: 78. RR: 13. O2 saturation: 96%. --14:43 Karthik Edwards R.N. ( Overview faxed to CCU). --16:03 [place] [id number] 15:30 07/28/16. BP: 88/40. HR: 73. RR: 18. O2 saturation: 97%. 15:00 07/28/16. BP: 104/54. HR: 75. RR: 14. O2 saturation: 98%. 14:30 07/28/16. BP: 90/43. HR: 75. RR: 16. O2 saturation: 97%. 14:00 07/28/16. BP: 88/45. HR: 87. RR: 22. O2 saturation: 97%. Pain level now: 12/09. 13:45 07/28/16. BP: 79/35. HR: 77. RR: 15. O2 saturation: 96%. 13:23 07/28/16. BP: 70/54. HR: 73. RR: 17. O2 saturation: 91% on room air. --16:11 Karthik Edwards R.N. DISPOSITION / DISCHARGE Admitted to the Critical Care Unit. ( Report given patient being transported.). --16:12 Karthik Edwards R.N. 16:15 07/28/2016 Site #[address] upon transfer; patent. Good blood return present. Converted to saline lock and flushed with 10 mL saline. --16:15 Karthik Edwards R.N. 16:16 07/28/2016 IV Fluids IV NS Discontinued: bag #4 infused upon transfer. Total amount infused: 800 mL. IV patency established. IV site checked: no pain, redness, or swelling. IV flushed thoroughly. --16:16 Karthik Edwards R.N. Departure time: 16:Jul 28 2016. --16:16 Karthik Edwards R.N. 15:30 07/28/16. BP: 88/40. HR: 73. RR: 18. O2 saturation: 97%. --16:16 Karthik Edwards R.N. 16:17 07/28/16. Temp: 98.0 F. Pain level now 12/09. --16:17 Karthik Edwards R.N. Locked/Released at 07/29/2016 8:28 by Karthik Edwards R.N.
--- NOTE | 2016-07-28 13:40 | DIAGNOSTIC IMAGING REPORT ---
PROCEDURE: CT THORAX ABD PELVIS W/O CONT CLINICAL INDICATION: Back pain. Hypotension. Renal failure (GFR 13.06). History of appendectomy and TIPS procedure. TECHNIQUE: Noncontrast axial images with sagittal and coronal reformations. COMPARISON: Comparison made to chest x-ray (07/28/2016, CT thorax (06/15/2016), and CT pelvis (02/25/2016. FINDINGS: THORAX: Lungs are clear. Heart mediastinum are of normal size. Coronary vascular calcifications. Mild degenerative change of the thoracic spine. ABDOMEN: Multiple small layering gallstones (previously documented). Cirrhosis of the liver with evidence of prior TIPS stent. Moderate splenomegaly (19 cm, no change). Pancreas, and kidneys are normal. Mild calcified atheromatous changes of the abdominal aorta. Bowel pattern is normal. PELVIS: Status post hysterectomy. Right ovary is mildly to moderately enlarged (5.4 cm). Left ovary is normal (2.5 cm). No evidence of free fluid. IMPRESSION: 1. Coronary vascular calcifications. 2. Otherwise negative CT thorax. 3. Cholelithiasis (previously documented). 4. Cirrhosis of the liver with prior TIPS stent (no change). 5. Chronic splenomegaly (19 cm). 6. Status post hysterectomy. 7. Mild to moderate enlargement of the right ovary (5.4 cm). Consider hemorrhagic cyst or ovarian mass. No evidence of free fluid. Follow-up pelvic ultrasound after the patient's acute illness (3-4 weeks) is recommended to confirm resolution. 8. Otherwise negative CT abdomen and pelvis. 9. Findings discussed with Dr. Neptali Rangel. All CT scans at this facility use dose modulation, iterative reconstruction, and/or weight-based dosing when appropriate to reduce radiation dose to as low as reasonably achievable.
[2016-07-28] MEDS ORDERED: FLOVENT HFA220 MCG INH (17:28)
[2016-07-28] MEDS ORDERED: VENTOLIN HFA IN (17:30)
[2016-07-28] MEDS ORDERED: ANORO ELLIPTA IN (17:36)
--- NOTE | 2016-07-28 19:39 | Progress Note ---
Subjective General Admission History and Physical Examination Admission to CCU observation Patient Name: Petra Valladares Admission Date: 07/28/2016 Primary Care Provider: Dr. Lowe Attending Physician: Dr. Kp Lainez M.D. Admitting Physician: Lonnie Wheeler Code Status: Full with limitations (call ) Room: 304 SUBJECTIVE Historian: Patient, Reliability: good Chief Complaint: Upper to lower back pain dizziness History of Present Illness: The patient is a 56-year-old white female with a past medical history diabetes mellitus, hypertension, hyperlipidemia, hypothyroid, hepatitis C with resultant liver cirrhosis (treatment for hep C, although by negative serology), portal hypertension status post TIPS , presenting today with mid to lower back pain. Patient has a baseline of chronic back pain, but had significant worsening of pain over the past 2 days; despite attempts to reduce the pain. Patient was seen in the emergency department, was found that she was hypotensive along with findings of kidney insufficiency, intractable back pain and moderately uncontrolled diabetes. Patient is admitted to CCU observation with hypotension, renal insufficiency, obesity, volume depletion, ovarian enlargement on the right liver sclerosis. Patient was admitted more than a month ago with pneumonia. Patient had discharge on home antibiotics along with a prednisone taper. Patient states that she's been having dizziness spells and just not feeling right since that time. Patient states that she never really recovered from that illness. Patient does have diabetic management issues. Patient is on a high load of insulin regiment. Patient attempts to maintain adequate diet. Patient has not had significant weight gain or loss. Patient had hepatitis C his treatment more than 4 years ago. Prior to this, patient had a TIPS procedure for a failing liver with cirrhotic changes, portal hypertension. Patient has not had significant follow-up with hepatology since the procedure. The patient does report a chronic back pain for which she takes oxycodone 5-10 mg 4 times per day. Patient reports that this pain is different than what she's had in the past.. Patient has not been able to gain adequate pain control. The patient is primarily brought to the CCU with hypotension and work up for sepsis. PAST MEDICAL HISTORY Illnesses: 1. Osteoarthritis. 2. Chronic back pain. 3. Hyperlipidemia 4. Obesity 5. Diabetes mellitus type 2 6. Hepatitis C 7. Cirrhosis 8. Hypothyroidism 9. Chronic pain. Allergies: 1. Aspirin 2. Vicodin 3. Latex 4. Adhesive tape Medications: 1. Levemir insulin 80 units subcutaneous bid 2. Jardiance 20 mg 1 by mouth every morning 3. Levothyroxine Sodium Oral 137 mcg, daily. 4. Lisinopril Oral 5 mg, daily. 5. Lovastatin Oral (Tablet 40 mg) 1 tablet, at bedtime. 6. NovoLOG Subcutaneous per Sliding Scale, before meals. typical 40 units with meals 7. Phenergan dosage unknown one by mouth every 6 hours when necessary nausea 8. Phenergan dosage unknown one by mouth every 6 hours. Nausea 9. QUEtiapine Fumarate Oral 400 mg, daily. 10. Xifaxan Oral (Tablet 550 mg) 1 tablet, 2xdaily. 11. Zofran 4 mg by mouth every 4 hours when necessary nausea 12. Oxycodone 5-10 mg by mouth every 4 hours when necessary pain Surgery: 1. TIPS procedure 2. Right shoulder surgery 3. x2 4. Bilateral tympanostomy tubes 5. Partial hysterectomy Injuries: 1. No significant injuries Hospitalizations: Multiple hospitalizations. The last was May 2016. FAMILY HISTORY Parents: 1. Father, Ed, , 86, diabetes mellitus, cancer type unknown, heart disease-type unknown, 2. Mother, Amy, living, 73, diabetes mellitus ( living in [place]) Siblings: 1. Female, living, 58, diabetes mellitus 2. Female, living, 50, ovarian cancer Children: 1. Male, living, 38, healthy 2. Male, , 32, motor vehicle accident Other significant family history: None SOCIAL HISTORY 1. Marital Status: 2. 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 Occupational health exposures: None HABITS 1. Tobacco: Cigarettes, past usage stop 2006, 72 pack years. 2. Drugs: None 3. Alcohol: None 4. Caffeine: None HEALTH SUPERVISION Item/Test 1. Vision screen: 2012 2. Cholesterol Profile: 2016 3. PSA: Not applicable 4. CHAU: Not applicable 5. FOBT: Unknown 6. Blood Glucose: 2014 7. Colonoscopy: 2013 8. History and physical exam: 2014 9. Audiogram: 2014 10. Pap smear, pelvic exam: 2016 11. Mammogram: No recent IMMUNIZATIONS: 1. Pneumococcal: 2012 2. Influenza: Unknown 3. Tetanus: Unknown REVIEW OF SYSTEMS Remarkable for those things stated in the history of present illness and past medical history. Rreview of system completed with the following notable findings : ROS Constitutional Weakness. Denies: Chills. Eyes Denies: Vision Change. ENT Denies: Nasal Discharge, Mouth Pain, Mouth Swelling, Throat Pain. Respiratory SOB w/exertion, Wheezing. Cardiovascular Light-headedness, Other (bilateral ankle swelling, ). Musculoskeletal Denies: Shoulder Pain (stiffness), Back Pain. Neurological Other (dizziness). Denies: Change in speech. Physical Exam Vital Signs / I&Os Vital Signs Date Time Temp Pulse Resp B/P Pulse O2 O2 Flow FiO2 Ox Delivery Rate 07/28 1906 22 22 91/35 92 Nasal 2.0 Cannula 07/28 1805 85 19 91/35 100 Nasal 2.0 Cannula 07/28 1800 Nasal 2.0 Cannula 07/28 1702 76 16 115/63 100 Nasal 2.0 Cannula 07/28 1625 98.1 77 24 105/58 97 Nasal 2.0 Cannula General Appearance Oriented X3, Cooperative, Mild distress HEENT EOMI Lungs Normal air movement, random wheeze Neck Supple, No JVD, bruit Cardiovascular Normal S1 and S2, murmur, systolic Abdomen No tenderness, No guarding, No rebound, distended pendulous abdomen, obesity, limits the integrity of the exam Extremities +1-2 lower extremity edema Neurological No lateralizing signs Psych/Mental Status Mood normal LAB Results Laboratory Tests 07/28 07/28 07/28 07/28 1020 1031 1035 1349 Chemistry Plasma Sodium (136 - 145 mmol/L) 134 Plasma Potassium (3.5 - 5.1 mmol/L) 3.8 Plasma Chloride (98 - 107 mmol/L) 101 CO2 (Enzymatic) (21 - 32 mmol/L) 21 BUN (7 - 18 mg/dL) 45 Creatinine (0.6 - 1.3 mg/dL) 3.8 Est GFR ( Amer) (mL/min) 15.83 Est GFR (Non-Af Amer) (mL/min) 13.06 Glucose (70 - 110 mg/dL) 189 Lactic Acid (0.4 - 2.0 mmol/L) 1.0 Plasma Calcium (8.5 - 10.1 mg/dL) 8.3 Total Bilirubin (0.0 - 1.0 mg/dL) 0.6 AST (15 - 37 U/L) 27 ALT (12 - 78 U/L) 36 Alkaline Phosphatase (46 - 116 U/L) 109 Creatine Kinase (24 - 260 U/L) 141 Troponin (0.00 - 1.5 ng/mL) <0.05 B-Natriuretic Peptide (5 - 100 pg/ml) < 5.0 Total Protein (6.4 - 8.2 g/dL) 6.5 Albumin (3.3 - 5.0 g/dL) 3.1 Amylase (25 - 115 U/L) 31 Lipase (73 - 393 U/L) 110 TSH 3rd Generation (0.30 - 3.74 uIU/mL) Cancelled 3.475 Coagulation INR (0.8 - 1.2) 1.2 APTT (24 - 34 SECONDS) 35 Hematology WBC (4.5 - 11.5 K/uL) 5.4 RBC (4.00 - 5.20 M/uL) 3.80 Hgb (12.0 - 16.0 gm/dL) 11.1 Hct (36.0 - 46.0 %) 33.2 MCV (80 - 100 fL) 87 MCH (26 - 34 pg) 29 RDW (11.6 - 14.8 %) 17.2 Neut % (Auto) (50 - 75 %) 67.3 Lymph % (Auto) (25 - 40 %) 19.0 [place] % (Auto) (3 - 14 %) 8.0 Eos % (Auto) (0 - 4 %) 5.2 Baso % (Auto) (0 - 2 %) 0.5 Plt Count, EDTA (150 - 400 K/uL) 54 PUBS MCHC (31 - 37 g/dL) 33 07/28 07/28 1400 1418 Chemistry Plasma Sodium (136 - 145 mmol/L) 135 Plasma Potassium (3.5 - 5.1 mmol/L) 4.1 Plasma Chloride (98 - 107 mmol/L) 104 CO2 (Enzymatic) (21 - 32 mmol/L) 21 BUN (7 - 18 mg/dL) 43 Creatinine (0.6 - 1.3 mg/dL) 3.4 Est GFR ( Amer) (mL/min) 18.00 Est GFR (Non-Af Amer) (mL/min) 14.85 Glucose (70 - 110 mg/dL) 102 Plasma Calcium (8.5 - 10.1 mg/dL) 7.8 Urines Urine Color YELLOW Urine Appearance SL CLOUDY Urine pH (5.0 - 8.0) 5.5 Ur Specific [place] (1.010 - 1.030) >= 1.030 Urine Protein (NEGATIVE) TRACE Urine Ketones (NEGATIVE) 1+ Urine Blood (NEGATIVE) NEGATIVE Urine Nitrite (NEGATIVE) NEGATIVE Urine Bilirubin (NEGATIVE) NEGATIVE Urine Urobilinogen (0.2 - 1.0 EU/dL) 0.2 Ur Leukocyte Esterase (NEGATIVE) NEGATIVE Urine RBC (0 - 1 rbc/hpf) NONE SEEN Urine WBC (0 - 1 wbc/hpf) 5-10 Ur Epithelial Cells (0 - 5 EPI/hpf) 3-5 Urine Bacteria (NONE SEEN) MODERATE (2+ TO 3+) Urine Glucose (NEGATIVE) 2+ Urine Comment CULTURE INDICATED Microbiology Date/Time Procedure - Status Source Growth 07/28 1625 MRSA Screen - RECD NASAL 07/28 1400 Urine Culture - RECD URINE CC Imaging Chest/abdomen CT IMPRESSION: 1. Coronary vascular calcifications. 2. Otherwise negative CT thorax. 3. Cholelithiasis (previously documented). 4. Cirrhosis of the liver with prior TIPS stent (no change). 5. Chronic splenomegaly (19 cm). 6. Status post hysterectomy. 7. Mild to moderate enlargement of the right ovary (5.4 cm). Consider hemorrhagic cyst or ovarian mass. No evidence of free fluid. Follow-up pelvic ultrasound after the patient's acute illness (3-4 weeks) is recommended to confirm resolution. 8. Otherwise negative CT abdomen and pelvis. Chest x-ray 07/28 2016 IMPRESSION: 1. Mild cardiomegaly. 2. Otherwise negative chest. Assessment and Plan Problem List 1. Hypotension Plan Prolonged illness with history of hepatitis C, liver cirrhosis, portal hypertension status post TIPS. Patient seen in the emergency department with intractable pain in the back and also found to be hypotensive. Patient given IV fluid bolus in the ED and additional 1 hour upon admission. Continue with a half-normal saline as a transition right. Caution with overhydration in pulmonary edema Monitor examination findings from lung. Review with nursing staff. Patient at risk for decompensated liver leading to a hepatorenal, hepato- pulmonary syndrome. Maintain him on full support this. Patient admitted to the CCU under observation and for Sepsis work up. Following cultures. At risk for SBP Trend blood pressure monitor as boluses are continued; Labs in the a.m. Holding lisinopril overnight. 2. Renal insufficiency Plan GFR is less than 18 and elevated creatinine to 3.4 with a BUN of 43. There are signs of kidney failure. Patient should be on medication dosages that avoid renal toxicity. We'll plan to hold the Jardiance 20 mg daily due to negative influence on the kidney function. She not be dosed the falling kidney function Attempt to find balance between positive and negative fluid balance. Strict ins and out; strict weight checks. Consider BNP 3. Volume depletion Plan In the emergency department, patient was found to be volume depleted. She was given IV fluid boluses. Additional was given one with her admission. Patient will continued on the half-normal saline at 100 cc Follow up labs in the a.m. adjust and replace electrolytes 4. Back pain Plan Back pain may be related or unrelated to the current organ dysfunction including renal insufficiency and hopefully not. Liver decompensation. We'll plan to maintain better control her back pain with caution given the hypotension. Maintains good fluid hydration. Encourage family visitation 5. Ovarian enlargement, right Plan This was seen incidentally on the CT scan of the pelvis and abdomen. This may represented by her hemorrhagic ovarian cyst. This could potentially lead to pain in the abdomen. Given the level of leakage in the peritoneum. This should be evaluated by gynecology. Follow-up ultrasound studies of the pelvis should be performed. This should be done with chronic altered 6. Hyperglycemia due to type 2 diabetes mellitus Plan Long-standing diabetes mellitus type 2. Insulin requirements including Levemir 80 units twice a day NovoLog on a sliding scale; nearly 40 units with meals. Trending labs Review A1c inpatient Patient needs to nap on the l control given the level likely diabetic nephropathy 7. COPD (chronic obstructive pulmonary disease) Plan Duo nebs to be done every 6 hours as needed for shortness of breath. Continue with the albuterol as necessary. O2 supplementation. COPD follow-up with primary care 8. Cirrhosis Status Chronic Onset Date Unknown Plan Long-standing liver cirrhosis, status post hepatitis C eradication and status post Tipps procedure due to portal hypertension. Relatively asymptomatic over the past 4 years. No follow-up. She has not had a follow-up ultrasound; this will be ordered and completed during her hospitalization. She needs to be seen by hepatology on consistent basis. 9. Sepsis Plan Protocol for sepsis as been implemented. This includes blood cultures, urine cultures A risk for SBP given her history of cirrhotic changes of the liver Ceftriaxone 1 g daily Levofloxacin 500 mg daily. Sensitive to the renal insufficiency. E&M Codes Admission: Inpt-High/22282
--- NOTE | 2016-07-28 20:39 | Progress Note ---
Subjective General ADVANCED CARE PLAN History of Present Illness 56-year-old white female with a past medical history diabetes mellitus, hypertension, hyperlipidemia, hypothyroid, hepatitis C with resultant liver cirrhosis (treatment for hep C, although by negative serology), portal hypertension status post TIPS , presenting today with mid to lower back pain. Patient has a baseline of chronic back pain, but had significant worsening of pain over the past 2 days; despite attempts to reduce the pain. Patient was seen in the emergency department, was found that she was hypotensive along with findings of kidney insufficiency, admitted for hypotension and sepsis. A discussion was undertaken with the patient regarding previous advance care arrangements/decisions. The following advanced directives were noted by the patient and discussed with me at the time of admission. ADVANCED DIRECTIVES: 1. Living well: none 2. POLST: none 3. CODE STATUS: full code with limitations 4. Durable Power Senior Engineering Manager Health care: Frantz 5. Donor card: not available., The patient has expressed interest in not pursuing any form of resuscitation at this time. She has opted not to pursue intubation/mechanical ventilation, CPR, electrical cardioversion, or life-sustaining efforts involving drugs at the time of cardiopulmonary arrest. The patient's wishes were documented in the chart and orders regarding the patient's wishes entered into the [employer] CPOE system. The "Advance Care Plan Document" was not distributed to patient to discuss with her family. Less than 30 minutes was spent in performing the above tasks and documentation of the patient's advanced care plan.
[2016-07-29] VITALS (24 sets, daily range): BP systolic 80–148; BP diastolic 28–75
--- NOTE | 2016-07-29 09:18 | DIAGNOSTIC IMAGING REPORT ---
PROCEDURE: XR CHEST 1 VIEW INDICATION: POST PICC TECHNIQUE: Portable AP view 08:58 a.m. COMPARISON: Chest x-ray 07/28/2016 FINDINGS: Interval placement of a right PICC line with the tip at the junction of the SVC and right atrium. Lungs are clear. Heart and mediastinum are normal. Thorax is normal. IMPRESSION: 1. Right PICC line in satisfactory position 2. Results called to respiratory (Benjamin).
--- NOTE | 2016-07-29 10:41 | DIAGNOSTIC IMAGING REPORT ---
PROCEDURE: US ABDOMEN ULTRASOUND-COMPLETE INDICATION: hx of TiPS/liver cirrhosis; needing doppler values of portal TECHNIQUE: Pan scale and color Doppler sonographic images of the abdomen were obtained without comparison. COMPARISON: Compared to abdominal radiograph 02/24/2016, CT abdomen and pelvis (12/17/2015), and abdominal ultrasound (02/25/2016).. FINDINGS: There are multiple small layering gallstones. No evidence of gallbladder wall thickening. Common duct is normal (3 mm). Status post TIPS procedure. There is heterogeneous appearance of the liver with nodular surface changes compatible with cirrhosis. Portions of the pancreas are seen. There is a a 1.3 cm cyst in the head of the pancreas incidental finding). Portions of the aorta and right kidney are seen, and are normal. IMPRESSION: 1. Cholelithiasis (previously documented). 2. Cirrhosis of the liver. Status post TIPS procedure. 3. There is a 1.3 cm cyst in the head of the pancreas (incidental finding). 4. Doppler values indicate the TIPS is patent.
--- NOTE | 2016-07-29 16:19 | Progress Note ---
Subjective General Pt seen and examined. Patients blood pressures have improved since admission. Bharathi patient is doing well and vasopressive agents are titrated off. Constitutional Weakness. Denies: Fever, Chills, Sweats, Malaise, Other. Eyes Denies: Pain, Vision Change, Conjunctival Inflammation, Eyelid Inflammation, Redness, Other. ENT Denies: Ear Pain, Ear Discharge, Nose Pain, Nasal Discharge, Nasal Congestion, Mouth Pain, Mouth Swelling, Throat Pain, Throat Swelling, Other. Respiratory Denies: Cough, Dry, SOB w/exertion, Wheezing, Hemoptysis, Pleuritic Pain, Sputum , Other. Cardiovascular Light-headedness. Denies: Chest Pain, Palpitations, Orthopnea, PND, Edema, Other. Genitourinary Denies: Dysuria, Frequency, Incontinence, Hematuria, Retention, Other. Neurological Denies: Weakness, Numbness, Incoordination, Change in speech, Confusion, Seizures, Other. Physical Exam General Appearance Alert, Oriented X3, No acute distress HEENT Atraumatic, Moist mucous membranes Lungs Clear to auscultation Cardiovascular Regular rate and rhythm, No murmurs, gallops, rubs Abdomen Soft, No tenderness, No guarding Extremities No clubbing, Normal pulses, No tenderness, - trace edema Skin No Breakdown Neurological Normal speech, Normal tone, Cranial nerves intact, No lateralizing signs Psych/Mental Status Mood normal Assessment and Plan Problem List 1. Hypotension Plan - blood pressure is improving with hydration and holding of anti-hypertensives - will continue to hold meds until pressure normalizes - will track input and outs and maintain positive balance - will titrate down vasopressive agents 2. Renal insufficiency Plan - pts initial renal function was poor - secondary to dehydration - adequate hydration is helping the kidney function to improve - will continue to trend 3. Volume depletion Plan - unkonw etiology - pt has not been having decreased intake - will maintain positive balance 4. Back pain Plan - chronic condition - will c/w home medication for pain control 5. Sepsis 6. Diabetes mellitus Status Chronic Onset Date Unknown Plan - will c/w sliding scale coverage - will 7. Cirrhosis Status Chronic Onset Date Unknown Plan - stable - will watch for more ascites with fluid administration
[2016-07-30 02:25] VITALS: BP 125/48
--- NOTE | 2016-07-30 06:22 | Progress Note ---
Subjective General Note Date: 07/30/2016 Admission Date: 1-2 days Hospital Day: 3 PCP: Dr. Lowe Status: Acute care Advanced Directive: Available Room: 304 Patient seen and examined at bedside. Patient had complaints of pain right lower back region which she originally had on admission. This has improved significantly. Patient is asking about going home today possible. Patient has been maintain her pressures overnight. Patient has family support Physical Exam Vital Signs / I&Os Vital Signs Date Time Temp Pulse Resp B/P Pulse O2 O2 Flow FiO2 Ox Delivery Rate 07/30 0225 97.9 91 16 125/48 90 Room Air 0.0 07/29 2233 98.1 91 17 119/51 94 Room Air 0.0 07/29 2030 Room Air 07/29 1853 83 07/29 1842 98.1 07/29 1705 87 16 148/66 96 07/29 1608 87 16 131/64 100 07/29 1506 87 19 130/73 97 / 1407 97.7 86 17 112/75 96 07/29 1307 86 15 127/45 100 Room Air 07/29 1228 89 21 123/55 96 Room Air 07/29 1117 87 18 109/45 96 Room Air 07/29 1028 98.2 84 15 110/65 95 Room Air 07/29 1014 Room Air 07/29 0950 83 14 95/45 93 Room Air 07/29 0714 98.1 90 16 100/45 92 Room Air 07/29 0619 98.8 90 17 100/46 93 Nasal 2.0 Cannula I&O 07/29 0800 07/29 1600 07/30 0000 Intake Total 0197 280 0626 Output Total 1225 3000 1450 Balance -65 -2382 1672 General Appearance Alert, Cooperative, No acute distress HEENT EOMI Lungs Clear to auscultation, Normal air movement Neck Supple, No JVD Cardiovascular Regular rate and rhythm, Normal S1 and S2 Abdomen Soft, No tenderness Extremities No cyanosis, No clubbing Skin No Breakdown Neurological Normal gait, Normal speech Psych/Mental Status Mood normal LAB Results Laboratory Tests 07/30 0420 Chemistry Plasma Sodium (136 - 145 mmol/L) 141 Plasma Potassium (3.5 - 5.1 mmol/L) 4.5 Plasma Chloride (98 - 107 mmol/L) 111 CO2 (Enzymatic) (21 - 32 mmol/L) 22 BUN (7 - 18 mg/dL) 32 Creatinine (0.6 - 1.3 mg/dL) 1.2 Est GFR ( Amer) (mL/min) 59.86 Est GFR (Non-Af Amer) (mL/min) 49.39 Glucose (70 - 110 mg/dL) 160 Plasma Calcium (8.5 - 10.1 mg/dL) 8.5 Total Bilirubin (0.0 - 1.0 mg/dL) 0.4 AST (15 - 37 U/L) 20 ALT (12 - 78 U/L) 28 Alkaline Phosphatase (46 - 116 U/L) 100 Total Protein (6.4 - 8.2 g/dL) 5.7 Albumin (3.3 - 5.0 g/dL) 2.7 Hematology WBC (4.5 - 11.5 K/uL) 3.1 RBC (4.00 - 5.20 M/uL) 3.50 Hgb (12.0 - 16.0 gm/dL) 10.1 Hct (36.0 - 46.0 %) 30.7 MCV (80 - 100 fL) 88 MCH (26 - 34 pg) 29 RDW (11.6 - 14.8 %) 16.9 Neut % (Auto) (50 - 75 %) 52.1 Lymph % (Auto) (25 - 40 %) 30.8 Shackelford % (Auto) (3 - 14 %) 9.1 Eos % (Auto) (0 - 4 %) 7.7 Baso % (Auto) (0 - 2 %) 0.3 Plt Count, EDTA (150 - 400 K/uL) 48 PUBS MCHC (31 - 37 g/dL) 33 Assessment and Plan Problem List 1. Hypotension Plan Hypotensive on initial admission exam. Patient with a history of liver cirrhosis and tip's procedure. Seemingly stable on recent ultrasound study. Patient required 8-12 hours of Levophed to maintain adequate blood pressures. This was eventually tapered off; and this was then discontinued nearly 24 hours ago. Adequate blood pressure being held. Patient is off all antihypertensives at this time. As improvement occurs patient will need to follow up with primary care provider. Patient may need to have the antihypertensives reintroduced. We'll however will need to take caution. 2. Renal insufficiency Plan Seen with renal insufficiency. On admission the GFR was less than 18 creatinine 3.4 and BUN 43. Substantial recovery from acute renal failure. The Lenny's was held. This was given at 20 mg daily. Due to the feeling kidney function to his adventitious to discontinue the Lenny's at this time. Adequate fluid balances are promoted. Attending with the weight checks; If patient is discharged home today; the plan is to have patient follow-up with her primary care provider. Patient will need to have a BMP done to check kidney function. Also to be informed of the discontinued Lenny's. Patient's A1c is at 8.8. Patient also found to be volume depleted on admission Most recent labs done this morning. The BUN is at 32 and the creatinine is at 1.2. Serum glucose of 160 albumin is 2.7. Signs of pancytopenia with a WBC count of 3.1, hematocrit of 30.7, RBC of 3.5 3. Volume depletion Plan Volume depletion on admission. Patient now on producing adequate urine. Plan to taper off the normal saline as patient improves on by mouth intake 4. Back pain Plan Adequate pain control. Patient has noted significant reduction of pain since admission. At baseline patient has chronic lower back pain. This however may been related organ stress , especially tension on the capsule of the kidney and liver. Discharge home on adequate pain control. 5. Ovarian enlargement, right Plan Enlarged ovary was seen on initial CT done in the emergency department. This was likely software support representative of a hemorrhagic ovarian cyst. This however will need to be followed by her [employer] and primary care provider. Recommending that patient have a follow-up CT, in addition to a pelvic ultrasound study. It is likely that this was a source of pain for patient given the capsular torsion along with peritoneal leak. 6. Hyperglycemia due to type 2 diabetes mellitus Plan Patient is maintained her home regimen. Discharged home on 80 units Levemir twice a day. Continue with the NovoLog on a sliding scale. Patient maintained adequate blood sugar control while inpatient. A1c greater than 8.8 Holding or discontinuing the Jardiance. 7. Sepsis Plan Patient on admission was hypotensive. Patient was maintained on pressors until adequate control. Patient also seen with volume depletion. Likely combination of sepsis cautions and volume depletion causing the hypotension. Following blood cultures. Discharged home on third generation cephalosporin. 8. Cirrhosis Status Chronic Onset Date Unknown Plan Long-standing liver cirrhosis, treated in the past for hepatitis C; previous TIPS procedure. Patient's ultrasound study of her liver and spleen showed stability from previous studies. No acute changes. Patient is encouraged to follow up with hepatology on consistent basis. Current status: Fair Stable Anticipated discharge date: 1 day Anticipated discharge placement: Home Patient care time: Time spent in chart review, patient interview, physical exam, CPOE, and care documentation: 30 minutes minutes Visit to patient today: 2 Complexity of care: Mild/moderate
[2016-07-30 06:57] VITALS: BP 139/69
[2016-07-30 10:18] VITALS: BP 145/66
[2016-07-30 14:37] VITALS: BP 150/56
--- NOTE | 2016-07-30 15:25 | Provider's Discharge Care Plan ---
Problem, Goal, Plan Problem List 1. Hypotension Goals: Therapeutic intervention, seen is hypotensive First 2 days of hospitalization Instructions: Follow up as directed 2. Volume depletion Goals: Improve disease control, Improve function, Therapeutic intervention Instructions: Follow up as directed, follow-up with Dr. Lowe 3. Back pain Goals: Improve disease control, needing physical therapy Assessment and treatment Ischemia done as an outpatient Instructions: Increase activity level, needing physical therapy follow-up. 4. Ovarian enlargement, right Goals: Therapeutic intervention, this needs to be assessed through a follow- up ultrasound Study of the ovary in the Next 3 weeks. Probable hemorrhagic Ovary but needs further imaging to trend the progress Instructions: follow-up with your [employer] provider for Further recommendations and imaging studies. 5. Sepsis Goals: you were in patient with hypotension. As a sign of sepsis We are following blood pressures. He will go home with an antibiotic cefdinir Which you will take daily. Instructions: this has been under appropriate therapy. 6. Renal insufficiency Goals: the renal insufficiency has proved significantly Stopping the jardiance It is recommended altogether. Instructions: discontinued Jardiance 7. Hyperglycemia due to type 2 diabetes mellitus Goals: Improve function, Prevent disease progress, Therapeutic intervention Instructions: Follow up as directed
--- NOTE | 2016-07-31 01:35 | ED DISCHARGE INSTRUCTIONS ---
Patient: VANIA AGUILA General Instructions [facility] VisitID: [id number] [address] [place] [address] 56y, F Registration Date/Time: 07/28/2016 Hypotension. Acute renal insufficiency. Back pain. (R ovarian mass). INSTRUCTIONS (Mild to moderate enlargement of the right ovary (5.4 cm). Consider hemorrhagic cyst or ovarian mass. No evidence of free fluid. Follow-up pelvic ultrasound after the acute illness (3-4 weeks) is recommended to confirm resolution.). (Electronically signed by Neptali Rangel MD 07/31/2016 1:35)
--- NOTE | 2016-07-31 01:35 | ED DISCHARGE INSTRUCTIONS ---
Patient: VANIA AGUILA General Instructions [facility] VisitID: [id number] [address] [place] [address] 56y, F Registration Date/Time: 07/28/2016 Hypotension. Acute renal insufficiency. Back pain. (R ovarian mass). INSTRUCTIONS (Mild to moderate enlargement of the right ovary (5.4 cm). Consider hemorrhagic cyst or ovarian mass. No evidence of free fluid. Follow-up pelvic ultrasound after the acute illness (3-4 weeks) is recommended to confirm resolution.). (Electronically signed by Neptali Rangel MD 07/31/2016 1:35)
--- NOTE | 2016-07-31 01:35 | ED MED RECONCILIATION SUMMARY ---
Patient: VANIA AGUILA Medication Reconciliation Report [facility] VisitID: [id number] [address] [place] [address] 56y, F Registration Date/Time: 07/28/2016 Weight: 149.2 kg Height/Length: 64 in. BMI: 56.5 ALLERGIES: Adhesive, Aspirin, Latex, Vicodin The patient's Home Medications are listed below: THE FOLLOWING MEDICATIONS NEED TO BE RECONCILED: Jardiance Oral (10 mg) 2 tablets, day Levemir Subcutaneous 150 Units in AM+ 150 units in PM, does not take the same dosing Levothyroxine Sodium Oral 137 mcg, daily Lisinopril Oral 5 mg, daily Lovastatin Oral (40 mg) 1 tablet, at bedtime NovoLOG Subcutaneous per Sliding Scale, before meals OxyCODONE HCl Oral 5 mg, 5 times a day Phenergan (Promethazine) Oral Phenergan (Promethazine) Rectal QUEtiapine Fumarate Oral 200 mg, daily Tanzeum Subcutaneous (30 mg), once a week Xifaxan Oral (550 mg) 1 tablet, 2xdaily Zofran Oral 4 mg, PRN The source(s) of the original Home Medication information: Not obtained. The following Medications were given to the patient in the Emergency Department: IV NS IV Fluids bolus 0, then 1000 mL/hr, administered: 07/28/2016 10:43:00 AM IV NS IV Fluids bolus 0, then 999 mL/hr, administered: 07/28/2016 12:25:00 PM IV NS IV Fluids bolus 0, then 1000 mL/hr, administered: 07/28/2016 1:23:00 PM The following Medications were prescribed to the patient: None.
--- NOTE | 2016-07-31 01:35 | ED MED RECONCILIATION SUMMARY ---
Patient: VANIA AGUILA Medication Reconciliation Report [facility] VisitID: [id number] [address] [place] [address] 56y, F Registration Date/Time: 07/28/2016 Weight: 149.2 kg Height/Length: 64 in. BMI: 56.5 ALLERGIES: Adhesive, Aspirin, Latex, Vicodin The patient's Home Medications are listed below: THE FOLLOWING MEDICATIONS NEED TO BE RECONCILED: Jardiance Oral (10 mg) 2 tablets, day Levemir Subcutaneous 150 Units in AM+ 150 units in PM, does not take the same dosing Levothyroxine Sodium Oral 137 mcg, daily Lisinopril Oral 5 mg, daily Lovastatin Oral (40 mg) 1 tablet, at bedtime NovoLOG Subcutaneous per Sliding Scale, before meals OxyCODONE HCl Oral 5 mg, 5 times a day Phenergan (Promethazine) Oral Phenergan (Promethazine) Rectal QUEtiapine Fumarate Oral 200 mg, daily Tanzeum Subcutaneous (30 mg), once a week Xifaxan Oral (550 mg) 1 tablet, 2xdaily Zofran Oral 4 mg, PRN The source(s) of the original Home Medication information: Not obtained. The following Medications were given to the patient in the Emergency Department: IV NS IV Fluids bolus 0, then 1000 mL/hr, administered: 07/28/2016 10:43:00 AM IV NS IV Fluids bolus 0, then 999 mL/hr, administered: 07/28/2016 12:25:00 PM IV NS IV Fluids bolus 0, then 1000 mL/hr, administered: 07/28/2016 1:23:00 PM The following Medications were prescribed to the patient: None.
--- NOTE | 2016-07-31 01:35 | ED MAR SUMMARY ---
..... Medication Administration Record [facility] [address] [place] [address] Patient: VANIA AGUILA Visit ID: [id number] 56y, F Weight: 149.2 kg Height/Length: 64 in BMI: 56.5 ALLERGIES: Adhesive, Aspirin, Latex, Vicodin Start 10:43 07/28/2016 Karthik Edwards R.N., Stop 12:23 07/28/2016 Karthik Edwards R.N. Medication Administered: IV NS (SALINE), Dose: IV Fluids over 1 hour(s), Rate: 1000 mL/hr, Dispensed: 1000 mL bag, Site: #1 left AC. Medication Ordered: IV NS : initial bolus 1000 mL (1000 mL/hr), then 200 mL/hr for 4h (NOW); Urgent. Start 12:25 07/28/2016 Karthik Edwards R.N., Stop 13:07/28/2016 Faviola Balderrama R.N. Medication Administered: IV NS (SALINE), Dose: IV Fluids over 1 hour(s), Rate: 999 mL/hr, Dispensed: 1000 mL bag, Site: #1 left AC. Medication Ordered: IV NS : initial bolus 1000 mL (1000 mL/hr), then 200 mL/hr for 4h (NOW); Urgent. Start 13:23 07/28/2016 Faviola Balderrama R.N., Stop 16:16 07/28/2016 Karthik Edwards R.N. Medication Administered: IV NS (SALINE), Dose: IV Fluids over 1 hour(s), Rate: 1000 mL/hr, Dispensed: 1000 mL bag, Site: #1 left AC. Medication Ordered: IV NS : initial bolus 1000 mL (1000 mL/hr), then 1000 mL/hr for X3 (NOW); Urgent.
--- NOTE | 2016-07-31 01:35 | ED MAR SUMMARY ---
..... Medication Administration Record [facility] [address] [place] [address] Patient: VANIA AGUILA Visit ID: [id number] 56y, F Weight: 149.2 kg Height/Length: 64 in BMI: 56.5 ALLERGIES: Adhesive, Aspirin, Latex, Vicodin Start 10:43 07/28/2016 Karthik Edwards R.N., Stop 12:23 07/28/2016 Karthik Edwards R.N. Medication Administered: IV NS (SALINE), Dose: IV Fluids over 1 hour(s), Rate: 1000 mL/hr, Dispensed: 1000 mL bag, Site: #1 left AC. Medication Ordered: IV NS : initial bolus 1000 mL (1000 mL/hr), then 200 mL/hr for 4h (NOW); Urgent. Start 12:25 07/28/2016 Karthik Edwards R.N., Stop 13:07/28/2016 Faviola Balderrama R.N. Medication Administered: IV NS (SALINE), Dose: IV Fluids over 1 hour(s), Rate: 999 mL/hr, Dispensed: 1000 mL bag, Site: #1 left AC. Medication Ordered: IV NS : initial bolus 1000 mL (1000 mL/hr), then 200 mL/hr for 4h (NOW); Urgent. Start 13:23 07/28/2016 Faviola Balderrama R.N., Stop 16:16 07/28/2016 Karthik Edwards R.N. Medication Administered: IV NS (SALINE), Dose: IV Fluids over 1 hour(s), Rate: 1000 mL/hr, Dispensed: 1000 mL bag, Site: #1 left AC. Medication Ordered: IV NS : initial bolus 1000 mL (1000 mL/hr), then 1000 mL/hr for X3 (NOW); Urgent.
== END 2016-07-30 16:45 | disposition home or self-care (01) | DRG 872 ==
LOC: ED SRH 09:56 → TRANS SRH 12:31 → CC SRH 12:31
PROVIDERS: ADMIT Emergency Medicine
PROC: 02HV33Z Insertion of Infusion Device into Superior Vena Cava, Percutaneous Approach (ICD-10-PCS; principal; 2016-07-29)
DX: A41.9 Sepsis, unspecified organism (principal); E86.9 Volume depletion, unspecified; N28.9 Disorder of kidney and ureter, unspecified; K76.6 Portal hypertension; E11.65 Type 2 diabetes mellitus with hyperglycemia; E11.21 Type 2 diabetes mellitus with diabetic nephropathy; K74.69 Other cirrhosis of liver; Z86.19 Personal history of other infectious and parasitic diseases; Z79.4 Long term (current) use of insulin; E78.5 Hyperlipidemia, unspecified; E03.9 Hypothyroidism, unspecified; J44.9 Chronic obstructive pulmonary disease, unspecified; G89.29 Other chronic pain; M54.9 Dorsalgia, unspecified; Z95.828 Presence of other vascular implants and grafts
CPT/HCPCS: 83463; 85241; 90004; 90047; 90065; 90074; 90098; 90100; 90469; 90616; 91286; 91320; 92031; 92132; 92235; 92530; 92610; 93140; 94001; 94060; 95059

== ENCOUNTER 2016-08-28 12:21 | Outpatient (CLI) | payer OTHER ==
[~2016-08-28 12:21] MED LIST changes: +ANORO ELLIPTA IN; +FLOVENT HFA220 MCG INH; +VENTOLIN HFA IN
--- NOTE | 2016-08-28 13:48 | DIAGNOSTIC IMAGING REPORT ---
PROCEDURE: US COMPLETE PELVIC W/TRANSVAG INDICATION: F/U RT OVARIAN CYST SEEN ON CT TECHNIQUE: Transabdominal and endovaginal hendrix scale and color Doppler sonographic images of the female pelvis were obtained. COMPARISON: CT chest/abdomen/pelvis 07/28/2016. FINDINGS: TRANSABDOMINAL SCANS: Normal kidneys. There is a 4 cm right adnexal simple cyst (previously 5.4 cm). Hysterectomy. TRANSVAGINAL SCANS: Transvaginal scan was attempted but the patient complained of severe tenderness and asked to discontinued the examination. Single view demonstrates a normal vaginal cuff. Ovaries are not visualized. No free fluid. IMPRESSION: 1. Resolving 4 cm simple right adnexal cyst (previously 5.4 cm). 2. Hysterectomy
--- NOTE | 2016-08-28 14:58 | DIAGNOSTIC IMAGING REPORT ---
PROCEDURE: MG BILATERAL SCREENING W/CAD INDICATION: SCREENING TECHNIQUE: Bilateral CC and MLO digital views. COMPARISON: Compared to 11/06/2006. FINDINGS: Computer-aided detection applied. Mildly dense with a few dystrophic calcifications. No significant change. IMPRESSION: 1. Negative mammogram. RESULT CODE: 1- Negative. A. A negative report should not delay biopsy if a dominant or clinically suspicious mass is present. 10-15% of cancers are not identified by x-ray. B. A negative report may reinforce clinical impression. C. Adenosis and dense breasts may obscure an underlying neoplasm. D. False positive reports average 6-10%. E.. A yearly screening mammogram is recommended. A reminder letter will be scheduled.
== END 2016-08-28 23:00 | disposition home or self-care (01) ==
LOC: US SRH 12:21
DX: N83.201 Unspecified ovarian cyst, right side (principal); Z90.710 Acquired absence of both cervix and uterus; Z12.31 Encounter for screening mammogram for malignant neoplasm of breast

== ENCOUNTER 2016-09-01 13:00 | Emergency (ER) | payer OTHER ==
--- NOTE | 2016-09-01 14:40 | DIAGNOSTIC IMAGING REPORT ---
PROCEDURE: XR WRIST MIN 3 VIEWS - RIGHT INDICATION: PAIN TECHNIQUE: Four views of the right wrist. COMPARISON: None. FINDINGS: Normal mineralization. No fractures. Normal osseous alignment. No suspicious soft-tissue calcification or radiodense foreign bodies. IMPRESSION: 1. Intact right wrist.
--- NOTE | 2016-09-01 14:53 | ED CLINICAL REPORT ---
Clinical Report - Physicians/Mid Levels [facility] [address] [place] [address] 09/01/2016 13:00 Patient: VANIA AGUILA Time Seen: 14:06; initial patient contact, initial documentation, patient care assumed. Arrived- By private vehicle. Historian- patient. HISTORY OF PRESENT ILLNESS Chief Complaint: UPPER EXTREMITY PAIN. Modifying factors- made better by prescription medications. (felt better after oxycodone). Severity is described as being severe. The quality is noted to be "pain". It is described as radiating to the right elbow and right forearm. This started today and is still present. It was abrupt in onset and has been constant. Symptoms located in the area of the right wrist. No chest pain, difficulty breathing, swelling, sensory loss or motor loss. No repetitive hand use at work. She has not had redness. Patient denies an injury. Similar symptoms previously: None. Recent medical care: Not recently seen/assessed. REVIEW OF SYSTEMS No fever. All systems otherwise negative, except as recorded above. PAST HISTORY See nurses notes. PROBLEMS: Hypotension. Lung Disease. Heart Disease. Abnormal Liver Function Test. Lifestyle / Substance Problems. Gout. Chest Pain. Hyperglycemia. UTI - Urinary Tract Infection. Renal Insufficiency. Lower Extremity Pain. Arthritis. Back Pain. Chronic Back Pain. Intervertebral Disc Disease. Lumbar Radiculopathy. Degenerative Joint Disease. Pedal Edema. Rt groin pain . COPD - Chronic Obstructive Pulmonary Disease. Gastritis. Dehydration. Contusion. Fall. Sprain. Biliary Colic. Cholelithiasis. Vomiting. Hypomagnesemia. Abdominal Pain. Flank Pain. Cardiovascular Risk Factors. Cirrhosis. Lumbar Strain. Kidney failure. GI Bleeding. Abnormal Test. Rectal Bleed. LNMP - Last Normal Menstrual Period. Hepatitis C. Hypertension. Otitis Media. Obesity. Hepatitis. Bipolar Disorder. Thyroid Disease. Chest Wall Pain. Pharyngitis. Hypothyroidism. Neck Pain. Cervical Strain. Immunizations. Pneumonia. Diabetes Mellitus. --13:49 Romulo Gloria RFlorenciaN. ADDITIONAL SURGERIES: Appendectomy. . Endoscopy. Hysterectomy. Liver biopsy. Shoulder Surgery. TIPs in liver. Tonsillectomy. Tympanostomy Tubes. --13:49 Romulo Gloria R.N. SOCIAL HISTORY Never smoker. No alcohol use or drug use. No recent travel. Is a local resident. FAMILY HISTORY Negative. ADDITIONAL NOTES The nursing notes have been reviewed with agreement regarding the chief complaint, HPI, ROS, PMH and patient medications and allergies. PHYSICAL EXAM Vital Signs: 09/01/2016 13:44 BP: 138/73. HR: 75. RR: 18. O2 saturation: 92%. Temp: 98.1 F. Pain level now: 10/09. Have been reviewed as normal and appear to be correct. Appearance: Alert. Oriented X3. No acute distress. Eyes: Pupils equal, round and reactive to light. Eyes normal inspection. Neck: Normal inspection. Neck supple. Respiratory: No respiratory distress. Skin: Skin intact. Skin warm and dry. Normal skin color. Normal skin turgor. Extremities: Upper extremities abnormal to inspection. Upper extremities do not exhibit normal ROM. Upper extremity tenderness. No upper extremity edema. Right wrist: mild tenderness. Limited ROM secondary to pain (diminished flexion, ulnar deviation and radial deviation). Neurovascular intact distally. (entire wrist area tender). No erythema, swelling, laceration, abrasion or ecchymosis. No puncture wound, foreign body or deformity. No localization or joint effusion. Extremities otherwise negative. Neuro: Oriented X 3. No motor deficit. No sensory deficit. LABS, X-RAYS, AND EKG X-Rays: Right wrist negative. Rt Wrist X-ray: (IMPRESSION: 1. Intact right wrist. Electronically Final signed by:Roni Yanez MD 09/01/2016 2:41:10 PM). The X-rays were interpreted by the radiologist and contemporaneously by me. Interpretation time: 14:44. Laboratory Tests: CBC w Diff: (MANISHA: 09/01/2016 14:15) ( MsgRcvd 09/01/2016 14:25) Final results Test Result Flag Units (Reference) WHITE BLOOD COUNT 2.8 L K/uL (4.5-11.5) RED BLOOD COUNT 3.62 L M/uL (4.00-5.20) HEMOGLOBIN 10.6 L gm/dL (12.0-16.0) HEMATOCRIT 31.7 L % (36.0-46.0) MEAN CELL VOLUME 87 fL (80-100) MEAN CORPUSCULAR HGB 29 pg (26-34) MEAN CORPUSCULAR HGB CONC 33 g/dL (31-37) RED CELL DISTRIBUTION WIDTH 15.3 H % (11.6-14.8) PLATELET COUNT 57 L K/uL (150-400) NEUTROPHIL % 61.5 % (50-75) LYMPH % 19.4 L % (25-40) MONO % 8.8 % (3-14) EOSINOPHIL % 10.1 H % (0-4) BASOPHIL % 0.2 % (0-2) BMP: (MANISHA: 09/01/2016 14:15) ( MsgRcvd 09/01/2016 14:34) Final results Test Result Flag Units (Reference) GLUCOSE 231 H mg/dL (70-110) BUN 21 H mg/dL (7-18) CREATININE 1.2 mg/dL (0.6-1.3) Estimated GFR 49.39 mL/min Estimated GFR- 59.86 mL/min Note: Persistent reduction over 3 months in eGFR<60 mL/min/1.73 m2 defines CKD. Patients with eGFR values>=60 mL/min/1.73 m2 may also have CKD if evidence ofpersistent proteinuria. Additional information may be foundat [email or web address].org. SODIUM 138 mmol/L (136-145) POTASSIUM 4.9 mmol/L (3.5-5.1) CHLORIDE 104 mmol/L (98-107) CARBON DIOXIDE 30 mmol/L (21-32) CALCIUM 9.4 mg/dL (8.5-10.1) . PROGRESS AND PROCEDURES Course of Care: nurse informing me he ordered blood work since pt is diabetic and her sugar was over 200 dc plan discussed, pt has pain meds and motrin already, agreed to continue with those and velcro wrist splint. 09/01/2016 15:10 BP: 138/74. HR: 72. RR: 18. O2 saturation: 94%. Temp: 98.3 F. Pain level now: 4/10. Vital Signs: have been reviewed as normal and appear to be correct. Patient and spouse counseled in person regarding the patient's stable condition, test results and diagnosis. 14:45. Differential Diagnosis: I considered fracture, stress fracture, navicular fracture, aseptic necrosis, primary tumor, degenerative joint disease, arthritis, rheumatoid arthritis, gout, pseudogout, sprain, hyperextension, soft tissue injury, tendonitis, myositis, fasciitis, bursitis and carpal tunnel syndrome as a possible cause of upper extremity pain in this patient. This is a partial list of diagnoses considered. Above considerations are based on history, physical exam, reassessment and X-Ray data. Differential diagnosis was discussed with patient. Disposition: Discharged home in good and improved condition (14:53). Condition: good and stable. CLINICAL IMPRESSION Acute inflammatory tendonitis in the right wrist. INSTRUCTIONS Wear splint until better. (continue with pain medication and motrin, as discussed). Warnings: GENERAL WARNINGS: Return or contact your physician immediately if your condition worsens or changes unexpectedly, if not improving as expected, or if other problems arise. Specifically return if problem worsens. Follow-up: Follow up with your doctor in about one week as needed. Call for an appointment. Summary of care provided to patient. Understanding of the discharge instructions verbalized by patient and family. (Electronically signed by Rupinder Pitts A.R.N.P. 09/01/2016 16:27)
--- NOTE | 2016-09-01 14:53 | ED ORDER SUMMARY ---
..... Patient: VANIA AGUILA OrderSheet [facility] VisitID: [id number] [address] [place] [address] 56y, F Registration Date/Time: 09/01/2016 ORDER SHEET Weight: 119.2 kg (stated) Allergies: Adhesive, Aspirin, Latex, Vicodin GENERAL ORDERS: CBC w Diff Urgent (14:06 09/01/2016 Анна R.N. verbal order read back to HBivens A.R.N.P.) (Ack 14:07 LNations ER Tech1) (14:17 LNations ER Tech1) BMP Urgent (14:06 09/01/2016 Andreinaelli R.N. verbal order read back to HBivens A.R.N.P.) (Ack 14:07 LNations ER Tech1) (14:17 LNations ER Tech1) Wrist 3 or 4V Right Urgent (14:11 09/01/2016 HBivens A.R.N.P.) (Ack 14:12 LNations ER Tech1) (15:04 LNations ER Tech1) Splint (UE) (Right) (Velcro - wrist) (14:52 09/01/2016 HBivens A.R.N.P.) (15:21 JRomanelli R.N.) MEDICATION ORDERS: IV FLUIDS: ORDER SHEET NOTES: [Electronically signed by Raheem Cintron R.N. (15:41 09/01/2016)] [Electronically signed by Rupinder Pitts A.R.N.P. (16:27 09/01/2016)] [Electronically locked/signed by Raheem Cintron R.N. (15:41 09/01/2016)]
--- NOTE | 2016-09-01 14:53 | ED NURSING NOTES ---
Clinical Report - Nurses [facility] [address] [place] [address] 09/01/2016 13:00 Patient: VANIA AGUILA TRIAGE Triage time 13:44. Acuity: LEVEL 4. Chief Complaint: RIGHT UPPER EXTREMITY PAIN. Location of symptoms- (Acute onset of pain started this AM. Unable to use the arm because of pain. Denies injuries. Took Oxycodone for the pain at 1030 with relief.). Alert. No acute distress. SEPSIS SCREEN: Sepsis Screen: negative. Negative (no infection suspected/documented). --13:50 Romulo Gloria R.N. 13:44 09/01/16. BP: 138/73 (regular adult cuff) taken on the left arm, via an automated monitor, while sitting. HR: 75 (normal rate). RR: 18 (regular, unlabored and normal). O2 saturation: 92% on room air. Temp: 98.1 F (oral). Pain level now: 8/10. Additional comments: Forearm cuff requested, says on the upper arm "cuts off circulation.". --13:50 Romulo Gloria R.N. Weight: 119.2 kg stated. Height/Length: 64 inches Per Patient. BMI: 45.1. --13:45 Romulo Gloria R.N. Medications Jardiance Oral (Tablet 10 mg) 2 tablets, day. Levemir Subcutaneous 150 Units in AM+ 150 units in PM (does not take the same dosing). Levothyroxine Sodium Oral 137 mcg, daily. Lisinopril Oral 5 mg, daily. Lovastatin Oral (Tablet 40 mg) 1 tablet, at bedtime. NovoLOG Subcutaneous per Sliding Scale, before meals. OxyCODONE HCl Oral 5 mg (5 times a day). Phenergan (Promethazine) Oral, as needed. Phenergan (Promethazine) Rectal, as needed. QUEtiapine Fumarate Oral 200 mg, daily. Tanzeum Subcutaneous (Pen-injector 30 mg), once a week. Xifaxan Oral (Tablet 550 mg) 1 tablet, 2xdaily. Zofran Oral 4 mg, PRN. --13:48 Romulo Gloria R.N. Medication/allergy information source: the patient. --13:50 Romulo Gloria R.N. Allergies Adhesive. (blister) Aspirin. (stomach pain and nausea) Latex. (blister) Vicodin.(vomiting) --13:48 Romulo Gloria R.N. History ( 1301. negative FAST exam in [facility]). --13:44 Gabriele Stone R.N. Arrived by private vehicle. Historian: patient. Accompanied by spouse. Primary physician (Dr. Lowe). No injury occurred. This occurred just prior to arrival. Has had no swelling or redness. No fever, neck pain, skin rash, itching or numbness. 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 PAST MEDICAL HX: The patient has had a hysterectomy. SOCIAL HX: Never smoker. No alcohol use or drug use. She has not traveled outside the [place] No infectious disease exposure. ABUSE ASSESSMENT: Abuse assessment: The patient was asked "Do you feel safe in your home?" and "Has anyone hurt you or threatened to hurt you?". No report of abuse. SELF HARM ASSESSMENT: A self harm assessment was performed. The patient answered "no" to the question "Do you have thoughts of harming or killing yourself?" and "Have you recently had thoughts about harming or killing others?". FALL RISK ASSESSMENT: Fall risk assessment completed. No fall risk identified. NUTRITIONAL RISK ASSESSMENT: The nutritional risk assessment revealed no deficiencies. FUNCTIONAL ASSESSMENT: Functional assessment: no impairments noted. LEARNING NEEDS ASSESSMENT: The learning needs assessment revealed no barriers. SKIN INTEGRITY ASSESSMENT: Skin integrity risk assessment completed. No skin integrity risk identified. --13:50 Romulo Gloria R.N. PROBLEMS: Hypotension. Lung Disease. Heart Disease. Abnormal Liver Function Test. Lifestyle / Substance Problems. Gout. Chest Pain. Hyperglycemia. UTI - Urinary Tract Infection. Renal Insufficiency. Lower Extremity Pain. Arthritis. Back Pain. Chronic Back Pain. Intervertebral Disc Disease. Lumbar Radiculopathy. Degenerative Joint Disease. Pedal Edema. Rt groin pain . COPD - Chronic Obstructive Pulmonary Disease. Gastritis. Dehydration. Contusion. Fall. Sprain. Biliary Colic. Cholelithiasis. Vomiting. Hypomagnesemia. Abdominal Pain. Flank Pain. Cardiovascular Risk Factors. Cirrhosis. Lumbar Strain. Kidney failure. GI Bleeding. Abnormal Test. Rectal Bleed. LNMP - Last Normal Menstrual Period. Hepatitis C. Hypertension. Otitis Media. Obesity. Hepatitis. Bipolar Disorder. Thyroid Disease. Chest Wall Pain. Pharyngitis. Hypothyroidism. Neck Pain. Cervical Strain. Immunizations. Pneumonia. Diabetes Mellitus. --13:49 Romulo Gloria R.N. ADDITIONAL SURGERIES: Appendectomy. . Endoscopy. Hysterectomy. Liver biopsy. Shoulder Surgery. TIPs in liver. Tonsillectomy. Tympanostomy Tubes. --13:49 Romulo Gloria R.N. Assessment GENERAL / NEURO / PSYCH: Alert. Oriented X 4. Appears in no acute distress. Patient appears calm and cooperative. RESPIRATORY: Respirations not labored. Breath sounds within normal limits. SKIN: Skin is warm and dry. --13:50 Romulo Gloria R.N. Interventions ID band on patient. To waiting room. --13:50 Romulo Gloria R.N. PHYSICAL ASSESSMENT To room via wheelchair. GENERAL / NEURO / PSYCH: Oriented X 4. Alert. Appears in pain. EXTREMITIES: Upper extremity edema. Neuro-vascular status intact to the extremity. Right wrist: tenderness. SKIN: Skin intact. Skin is warm and dry. ( Extremities are "tight" with apparent edema). --13:55 Raheem Cintron R.N. 13:59 09/01/16. O2 saturation: 89% on room air. --13:59 Raheem Cintron R.N. NURSING PROGRESS NOTES Patient gowned. Reassurance given. Patient identifiers checked. Call light placed in reach. Side rails up x 2. Bed placed in lowest position. Brakes of bed on. Patient ready for evaluation- chart flagged and ED physician notified. --13:55 Raheem Cintron R.N. 14:00 09/01/16. O2 saturation: 93% on nasal cannula at 2 liters/minute. --14:00 Raheem Cintron R.N. Glucose: 266. --14:05 Raheem Cintron R.N. ( Pt states that her BS was 123 this AM @ 1030.). --14:06 Raheem Cintron R.N. DISPOSITION / DISCHARGE Departure time: 1515. --15:37 Raheem Cintron R.N. 15:10 09/01/16. BP: 138/74. HR: 72. RR: 18. O2 saturation: 94% on room air. Temp: 98.3 F (oral). Pain level now: 10. Additional comments: (R) Wrist pain. --15:38 Raheem Cintron R.N. 15:15. Condition at departure: improved. No learning barriers present. Discharge instructions provided and reviewed with the patient. Reviewed medication(s) (Continue taking your usual prescribed medications). Reviewed splint care instructions (ice packs as ordered). Reviewed referral to family practice for followup. The patient was discharged by the physician. She was discharged home and accompanied by spouse. She left the Emergency Department in a wheelchair, via private vehicle and (pt wheeled out to car by nurse). Spouse driving. --15:40 Raheem Cintron R.N. Locked/Released at 09/01/2016 15:41 by Raheem Cintron R.N.
--- NOTE | 2016-09-01 14:53 | ED ORDER SUMMARY ---
..... Patient: VANIA AGUILA OrderSheet [facility] VisitID: [id number] [address] [place] [address] 56y, F Registration Date/Time: 09/01/2016 ORDER SHEET Weight: 119.2 kg (stated) Allergies: Adhesive, Aspirin, Latex, Vicodin GENERAL ORDERS: CBC w Diff Urgent (14:06 09/01/2016 Анна R.N. verbal order read back to HBivens A.R.N.P.) (Ack 14:07 LNations ER Tech1) (14:17 LNations ER Tech1) BMP Urgent (14:06 09/01/2016 Andreinaelli R.N. verbal order read back to HBivens A.R.N.P.) (Ack 14:07 LNations ER Tech1) (14:17 LNations ER Tech1) Wrist 3 or 4V Right Urgent (14:11 09/01/2016 HBivens A.R.N.P.) (Ack 14:12 LNations ER Tech1) (15:04 LNations ER Tech1) Splint (UE) (Right) (Velcro - wrist) (14:52 09/01/2016 HBivens A.R.N.P.) (15:21 JRomanelli R.N.) MEDICATION ORDERS: IV FLUIDS: ORDER SHEET NOTES: [Electronically signed by Raheem Cintron R.N. (15:41 09/01/2016)] [Electronically signed by Rupinder Pitts A.R.N.P. (16:27 09/01/2016)] [Electronically locked/signed by Raheem Cintron R.N. (15:41 09/01/2016)]
--- NOTE | 2016-09-01 16:27 | ED MAR SUMMARY ---
..... Medication Administration Record [facility] [address], [place] [id number] Patient: VANIA AGUILA Visit ID: [id number] 56y, F Weight: 119.2 kg Height/Length: 64 in BMI: 45.1 ALLERGIES: Adhesive, Aspirin, Latex, Vicodin
--- NOTE | 2016-09-01 16:27 | ED MED RECONCILIATION SUMMARY ---
Patient: VANIA AGUILA Medication Reconciliation Report [facility] VisitID: [id number] [address] [place] [address] 56y, F Registration Date/Time: 09/01/2016 Weight: 119.2 kg Height/Length: 64 in. BMI: 45.1 ALLERGIES: Adhesive, Aspirin, Latex, Vicodin The patient's Home Medications are listed below: THE FOLLOWING MEDICATIONS NEED TO BE RECONCILED: Jardiance Oral (10 mg) 2 tablets, day Levemir Subcutaneous 150 Units in AM+ 150 units in PM, does not take the same dosing Levothyroxine Sodium Oral 137 mcg, daily Lisinopril Oral 5 mg, daily Lovastatin Oral (40 mg) 1 tablet, at bedtime NovoLOG Subcutaneous per Sliding Scale, before meals OxyCODONE HCl Oral 5 mg, 5 times a day Phenergan (Promethazine) Oral Phenergan (Promethazine) Rectal QUEtiapine Fumarate Oral 200 mg, daily Tanzeum Subcutaneous (30 mg), once a week Xifaxan Oral (550 mg) 1 tablet, 2xdaily Zofran Oral 4 mg, PRN The source(s) of the original Home Medication information: patient The following Medications were given to the patient in the Emergency Department: None. The following Medications were prescribed to the patient: None.
--- NOTE | 2016-09-01 16:27 | ED MED RECONCILIATION SUMMARY ---
Patient: VANIA AGUILA Medication Reconciliation Report [facility] VisitID: [id number] [address] [place] [address] 56y, F Registration Date/Time: 09/01/2016 Weight: 119.2 kg Height/Length: 64 in. BMI: 45.1 ALLERGIES: Adhesive, Aspirin, Latex, Vicodin The patient's Home Medications are listed below: THE FOLLOWING MEDICATIONS NEED TO BE RECONCILED: Jardiance Oral (10 mg) 2 tablets, day Levemir Subcutaneous 150 Units in AM+ 150 units in PM, does not take the same dosing Levothyroxine Sodium Oral 137 mcg, daily Lisinopril Oral 5 mg, daily Lovastatin Oral (40 mg) 1 tablet, at bedtime NovoLOG Subcutaneous per Sliding Scale, before meals OxyCODONE HCl Oral 5 mg, 5 times a day Phenergan (Promethazine) Oral Phenergan (Promethazine) Rectal QUEtiapine Fumarate Oral 200 mg, daily Tanzeum Subcutaneous (30 mg), once a week Xifaxan Oral (550 mg) 1 tablet, 2xdaily Zofran Oral 4 mg, PRN The source(s) of the original Home Medication information: patient The following Medications were given to the patient in the Emergency Department: None. The following Medications were prescribed to the patient: None.
--- NOTE | 2016-09-01 16:27 | ED MAR SUMMARY ---
..... Medication Administration Record [facility] [address], [place] [id number] Patient: VANIA AGUILA Visit ID: [id number] 56y, F Weight: 119.2 kg Height/Length: 64 in BMI: 45.1 ALLERGIES: Adhesive, Aspirin, Latex, Vicodin
--- NOTE | 2016-09-01 16:27 | ED DISCHARGE INSTRUCTIONS ---
Patient: VANIA AGUILA General Instructions [facility] VisitID: [id number] [address] [place] [address] 56y, F Registration Date/Time: 09/01/2016 Acute inflammatory tendonitis in the right wrist. INSTRUCTIONS Wear splint until better. (continue with pain medication and motrin, as discussed). Warnings: GENERAL WARNINGS: Return or contact your physician immediately if your condition worsens or changes unexpectedly, if not improving as expected, or if other problems arise. Specifically return if problem worsens. Follow-up: Follow up with your doctor in about one week as needed. Call for an appointment. Summary of care provided to patient. Understanding of the discharge instructions verbalized by patient and family. ADDITIONAL INFORMATION Tendonitis A tendon is the thick fibrous cord that joins muscle to bone and causes joints to move. Tendonitis is inflammation of the tendon which may be due to overuse, injury or infection. This usually involves the shoulders, forearm, wrist, hands and foot. Symptoms include local pain, swelling and tenderness to the touch. Movement of the involved joint increases the pain. Tendonitis requires about 4 to 6 weeks to heal. It is treated by preventing motion of the tendon with a splint or brace and use of anti-inflammatory medicine. Home Care: Apply an ice pack (ice cubes in a plastic bag, wrapped in a towel) over the injured area for 20 minutes every 1-2 hours the first day for pain relief. Continue this 3-4 times a day until the pain and swelling goes away. Rest the inflamed joint and protect it from movement. You may use ibuprofen (Motrin, Advil) or naproxen (Aleve, Naprosyn) to treat pain and inflammation, unless another medicine was prescribed. If you can't take these medicines, acetaminophen (Tylenol) may help with the pain, but does not treat inflammation. [NOTE : If you have chronic liver or kidney disease or ever had a stomach ulcer or GI bleeding, talk with your doctor before using these medicines.] As your symptoms improve, begin gradual motion at the involved joint. Follow Up With Your Doctor If Not Improving After The First Five Days Of Treatment. Get Prompt Medical Attention If Any Of The Following Occur: Redness over the painful area Increasing pain or swelling at the joint Fever of 100.4F (38C) or higher, or as directed by your healthcare provider Wrist Splint: Velcro A splint is designed to prevent movement of the bones, muscles and tendons of the wrist. Velcro wrist splints are used because of their comfort and convenience. In certain conditions, the splint can be removed when bathing or changing clothes. The condition you are being treated for will determine how long you should wear the splint and if it is safe to remove your splint before your next visit. If you are unsure, ask your nurse or doctor. Get Prompt Medical Attention if any of the following occur: -- Increased pain or swelling under the splint or in the hand or fingers -- Fingers or hand becomes cold, blue, numb or tingly You have been given the following additional information: Tendonitis Wrist Splint, Velcro (Electronically signed by Rupinder Pitts A.R.N.P. 09/01/2016 16:27)
== END 2016-09-01 15:15 | disposition home or self-care (01) ==
LOC: ED SRH 13:00
DX: M65.841 Other synovitis and tenosynovitis, right hand (principal); I10 Essential (primary) hypertension; E11.9 Type 2 diabetes mellitus without complications; Z79.899 Other long term (current) drug therapy